=== PATIENT | male | born 1940 ===

== ENCOUNTER 2018-04-05 12:23 | Inpatient (IN) | payer MEDICARE ==
[2018-04-05 12:27] VITALS: BMI 26.2
--- NOTE | 2018-04-05 12:43 | C.PDOC ---
History Of Present Illness 78yo male, with history of dementia, brought to ER by family for evaluation of slurred speech and right sided facial droop. Family reports at baseline, the patient is AOX3 and he was last seen normal at 7 am; when the family checked in on him at 9am, they noted he had the slurred speech and facial droop. Upon arrival to ER, patient is slow to respond and reports generalized bodyaches. Per family, patient appears to have improved compared to this morning. Otherwise , they offer no other medical complaints. Time Seen by Provider: 04/05/18 12:27 Chief Complaint (Nursing): Weakness/Neurological Deficit History Per: Family History/Exam Limitations: clinical condition Onset/Duration Of Symptoms: Hrs Current Symptoms Are (Timing): Better Past Medical History Reviewed: Historical Data, Nursing Documentation, Vital Signs Vital Signs: Last Vital Signs Temp 98.8 F 04/05/18 15:52 Pulse 83 04/05/18 15:52 Resp 14 04/05/18 15:52 BP 104/55 L 04/05/18 15:52 Pulse Ox 97 04/05/18 15:52 - Medical History PMH: Anxiety, Dementia, Hypercholesterolemia Surgical History: No Surg Hx Family History: States: No Known Family Hx - Social History Hx Alcohol Use: No Hx Substance Use: No Review Of Systems Except As Marked, All Systems Reviewed And Found Negative. Constitutional: Negative for: Fever, Chills Cardiovascular: Negative for: Chest Pain Respiratory: Negative for: Shortness of Breath Gastrointestinal: Negative for: Abdominal Pain Neurological: Positive for: Other (slurred speech; right sided facial droop) Physical Exam - Physical Exam Appears: Non-toxic Skin: Warm, Dry Head: Atraumatic, Normacephalic Eye(s): bilateral: Normal Inspection Oral Mucosa: Moist Neck: Normal ROM, Supple Chest: Symmetrical Cardiovascular: Rhythm Regular Respiratory: Normal Breath Sounds Gastrointestinal/Abdominal: Normal Exam, Soft, No Tenderness Extremity: Normal ROM Other Neurological Findings: Facial Palsy (right sided) ED Course And Treatment - Laboratory Results Result Diagrams: 04/05/18 12:58 04/05/18 12:58 ECG: Interpreted By Me, Viewed By Me ECG Rhythm: Sinus Rhythm ECG Interpretation: Normal Interpretation Of ECG: No ST/T wave changes Rate From EC O2 Sat by Pulse Oximetry: 96 (RA) Pulse Ox Interpretation: Normal Progress Note: Labs, EKG, CXR ordered. NIHSS Stroke Scale 2 - Date/Time Evaluation Performed Date Performed: 04/05/18 When Was NIHSS Performed: Baseline - How Severe is the Stroke Level of Consciousness: 1=Drowsy LOC to Questions: 0=Both comments correct LOC to commands: 0=Obeys both correctly Best Gaze: 0=Normal Visual: 0=No visual loss Facial: 1=Minor asymmetry Motor Arm - Left: 0=No drift Motor Arm - Right: 0=No drift Motor Leg - Left: 0=No drift Motor Leg - Right: 0=No drift Limb Ataxia: 0=Absent Sensory: 0=Normal Best Language: 0=No aphasia Dysarthia: 1=Mild to moderate slurring Extinction & Inattention (Neglect): 0=Normal, no object Score: 3 rTPA Inclusion/Exclusion - Refusal of Treatment Patient Refused Treatment: No - Inclusion Criteria for Altepase Patient is 18 years or Older: Yes The Clinical Diagnosis of Ischemic Stroke That is Causing a Potentially Disabling Neurological Deficit: No Time of Onset is Well Established to be Less Than 270 Minute Before Treatment Would Begin: Yes Risk/Benefit Discussed With Patient/Family Member Present: Yes Medical Decision Making Medical Decision Making: stroke vs sepsis vs metabolic - stroke code. family states slurred speech facial droop. in er, symptoms nearly resolved. labs imaging pending cxr shows ?widened mediastinum, with neuro symptoms, cta added. ct shows pna. anbiotics iniated. 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 plavix given. not tpa candiddate as per dr davalos, as low nih, resolving symptoms and onset 7am accepted by dr salter. pt later reassesed all symptoms resolved. Disposition - Disposition Disposition: HOSPITALIZED Disposition Time: 03:00 Condition: FAIR - Clinical Impression Clinical Impression: Pneumonia, Slurred speech - Scribe Statement The provider has reviewed the documentation as recorded by the Sebastian Pimentel Provider Attestation: All medical record entries made by the Sebastian were at my direction and personally dictated by me. I have reviewed the chart and agree that the record accurately reflects my personal performance of the history, physical exam, medical decision making, and the department course for this patient. I have also personally directed, reviewed, and agree with the discharge instructions and disposition. Decision To Admit - Pt Status Changed To: Hospital Disposition Of: Inpatient - Admit Certification Admit to Inpatient:: After my assessment, the patient will require hospitalization for at least two midnights. This is because of the severity of symptoms shown, intensity of services needed, and/or the medical risk in this patient being treated as an outpatient. - InPatient: Physician Admission Certification: I certify that this patient requires 2 or more midnights of care for the following reason:: needs mri and iv anbiotics. - . Bed Request Type: Regular Admitting Physician: Tamela Salter Patient Diagnosis: Pneumonia, Slurred speech
--- NOTE | 2018-04-05 12:47 | CT ---
Date of service: 04/05/2018 PROCEDURE: CT HEAD WITHOUT CONTRAST. HISTORY: Code Stroke COMPARISON: None available. TECHNIQUE: Axial computed tomography images were obtained through the head/brain without intravenous contrast. Radiation dose: Total exam DLP = 850.77 mGy-cm. This CT exam was performed using one or more of the following dose reduction techniques: Automated exposure control, adjustment of the mA and/or kV according to patient size, and/or use of iterative reconstruction technique. FINDINGS: HEMORRHAGE: No intracranial hemorrhage. BRAIN: There are moderate diffuse confluent periventricular white matter ischemic changes with extension into the deep and subcortical white matter with the changes become more patchy in appearance. 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 Note that the possibility of a small hyperacute infarct cannot be excluded based on this study. Clinical correlation recommended. VENTRICLES: No obstructive hydrocephalus. CALVARIUM: Unremarkable. PARANASAL SINUSES: Unremarkable as visualized. No significant inflammatory changes. MASTOID AIR CELLS: Unremarkable as visualized. No inflammatory changes. OTHER FINDINGS: Changes of right-sided cataract surgery. IMPRESSION: No acute intracranial hemorrhage. Moderate diffuse confluent periventricular white matter ischemic changes with extension into the deep and subcortical white matter with the changes become more patchy in appearance. 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 Note that the possibility of a small hyperacute infarct cannot be excluded based on this study. Clinical correlation recommended. Moderate generalized volume loss. Findings discussed with Dr. Diego at 12 43 p.m. with written down and read back verification.
[2018-04-05 13:03] LABS: BASO % 0.3 % (0.0-2.0); EOS % 0.3 % (0.0-4.0); HEMOGLOBIN 13.1 g/dL (12.0-18.0); LYMPH # 1.5 K/uL (1.0-4.3); LYMPH % 12.1 % (20.0-40.0); MEAN CELL VOLUME 88.1 fL (80.0-94.0); MEAN CORPUSCULAR HEMOGLOBIN 29.9 pg (27.0-31.0); MEAN PLATELET VOLUME 9.4 fL (7.2-11.7); MONO # 0.6 K/uL (0.0-0.8); MONO % 4.6 % (0.0-10.0); NEUT # 10.2 K/uL (1.8-7.0); NEUT % 82.7 % (50.0-75.0); RBC 4.39 Mil/uL (4.40-5.90); RED CELL DISTRIBUTION WIDTH 14.9 % (11.5-14.5); WHITE BLOOD COUNT 12.4 K/uL (4.8-10.8)
[2018-04-05 13:13] LABS: INR 1.2; PROTHROMBIN TIME 12.6 SECONDS (9.7-12.2)
[2018-04-05 13:17] LABS: ALB/GLOB RATIO 1.3 (1.0-2.1); ALBUMIN 3.6 g/dL (3.5-5.0); ALT/SGPT 37 U/L (21-72); AST/SGOT 42 U/L (17-59); BLOOD UREA NITROGEN 17 mg/dL (9-20); CALCIUM 9.2 mg/dl (8.6-10.4); GFR AFRICAN-AMERICAN > 60; GFR NON-AFRICAN AMERICAN > 60; HDL CHOLESTEROL 40 mg/dL (30-70)
[2018-04-05 13:28] LABS: LDL CHOLESTEROL 72 mg/dL (0-129)
[2018-04-05] MEDS ORDERED: Iodixanol 320 mg/ml 150 ml Bottle IV ONE (13:37)
--- NOTE | 2018-04-05 14:30 | CP.PCM.CON ---
History of Present Illness - History of Present Illness History of Present Illness: Consult Neurology note CC: Right-sided facial droop and drooling HPI: Patient is a 78 year old male with past medical history of Arthritis, Hypothyroidism, Dementia, HTN, DM, depression/Anxiety, former alcohol abuse and prostate cancer, who was brought him by ambulance with complaint of right-sided facial droop and drooling. As per patient's daughter, patient woke up completely normal this morning at 7am and has breakfast and morning medication. Subsequently, patient went to bed with half of his body on the bed, while his legs were dangling on the floor; patient slipped to the floor when asked by his daughter to reposition himself on the body (all normal behavior as per daughter). Patient's daughter noted right sided drooling after this incident and she wiped her father's face. Around 9am, patient's daughter noted right sided drooling and facial droop. At this time, patient's daughter called PMD, who recommended for patient to be brought to the hospital. As per daughter, vitals were: BP (109/60), HR: 91 and Blood glucose (159). Patient denies any fever, chills, nausea, vomiting, chest pain, palpitations, SOB, headache, blurry vision, numbness/tingling and urinary/fecal incontinence. In addition, patient told his son-in-law, today was his son's graduation PMD: Dr. Salter PMHx: Arthritis, Hypothyroidism, Dementia, HTN, DM, depression/Anxiety, former alcohol abuse and prostate cancer PSHx: 88 radioactive seeds for prostate cancer, Right glaucoma repair FHx: Father ( Prostate Ca, ) - Mother (Throat Ca. ) - Elder sister and brother ( in their 80s and 90s due to complications of Dementia) - Elder brother ( in his 80s, possibly due to [place]) - Son, at age of 44 due to complications of liver/lung Ca Medications: Levothyroxine 75mcg PO QD, Clonazepam 1mg BID, Chlorthalidone 25mg PO QD, Paroxetine 20mg PO QD, Omeprazole 20mg PO QD, Metformin 500mg PO BID, Metoprolol tartate 25mg PO BID, Donepezil 10mg PO QD, Risperidone 1mg PO, Simvastatin 40mg PO HS, Melatonin 5mg PO BID, Cyclobenzaperine 10mg PO and Trazadone 50mg PO PRN Allergies: NKDA Social Hx: Lives with daughter, retired contractor. Admits to former alcohol abuse but denies current or former history of tobacco or illicit drug use Review of Systems - Constitutional Constitutional: Weakness. absent: Chills, Fever, Frequent Falls, Headache - EENT Eyes: absent: Blurred Vision, Change in Vision Ears: absent: Dizziness Nose/Mouth/Throat: absent: Nasal Congestion, Nasal Discharge - Cardiovascular Cardiovascular: absent: Chest Pain, Chest Pain at Rest, Diaphoresis, Dyspnea, Leg Edema, Lightheadedness, Palpitations - Respiratory Respiratory: absent: Dyspnea - Gastrointestinal Gastrointestinal: absent: Abdominal Pain, Nausea, Vomiting - Musculoskeletal Musculoskeletal: absent: Numbness, Tingling - Neurological Neurological: Weakness. absent: Dizziness, Numbness, Headaches, Tingling - Psychiatric Psychiatric: Anxiety, Behavioral Changes, Confusion, Depression - Endocrine Endocrine: Fatigue. absent: Palpitations Past Patient History - Past Social History Smoking Status: Unknown If Ever Smoked - CARDIAC Hx Hypercholesterolemia: Yes - NEUROLOGICAL Hx Dementia: Yes - PSYCHIATRIC Hx Anxiety: Yes Hx Substance Use: No Meds Allergies/Adverse Reactions: Allergies Allergy/AdvReac Type Severity Reaction Status Date / Time No Known Allergies Allergy Unverified 04/05/18 12:26 Physical Exam - Constitutional Appears: No Acute Distress - Head Exam Head Exam: ATRAUMATIC, NORMAL INSPECTION - Eye Exam Eye Exam: EOMI, PERRL Additional comments: Subtle right facial droop - ENT Exam ENT Exam: Mucous Membranes Dry Additional comments: Tongue is midline Tongue heaviness - Respiratory Exam Respiratory Exam: Rhonchi, NORMAL BREATHING PATTERN - Cardiovascular Exam Cardiovascular Exam: REGULAR RHYTHM, +S1, +S2 - GI/Abdominal Exam GI & Abdominal Exam: Normal Bowel Sounds, Soft. absent: Diminished Bowel Sounds , Distended, Firm, Guarding, Hernia, Tenderness - Extremities Exam Extremities exam: Negative for: calf tenderness, pedal edema, tenderness - Neurological Exam Neurological exam: Alert, Oriented x3 Additional comments: +5/5 b/l upper extremities strength Drifting noted bilateral leg function test +4/5 B/l lower extremities strength Sensory intact Very mild slurred speech Very mild to none ( Right-sided facial droop) - Psychiatric Exam Psychiatric exam: Normal Affect - Skin Skin Exam: Normal Color Results - Vital Signs Recent Vital Signs: Last Vital Signs Temp 98.3 F 04/05/18 12:25 Pulse 81 04/05/18 12:26 Resp 16 04/05/18 12:26 BP 117/62 04/05/18 12:26 Pulse Ox 96 04/05/18 13:27 - Labs Result Diagrams: 04/05/18 12:58 04/05/18 12:58 Labs: Laboratory Results - last 24 hr 04/05/18 04/05/18 04/05/18 12:26 12:58 12:58 WBC 12.4 H RBC 4.39 L Hgb 13.1 Hct 38.7 MCV 88.1 MCH 29.9 MCHC 34.0 RDW 14.9 H Plt Count 175 MPV 9.4 Neut % (Auto) 82.7 H Lymph % (Auto) 12.1 L Cooke % (Auto) 4.6 Eos % (Auto) 0.3 Baso % (Auto) 0.3 Neut # (Auto) 10.2 H Lymph # (Auto) 1.5 Cooke # (Auto) 0.6 Eos # (Auto) 0.0 Baso # (Auto) 0.0 PT 12.6 H INR 1.2 APTT 31 Sodium Potassium Chloride Carbon Dioxide Anion Gap BUN Creatinine Est GFR ( Amer) Est GFR (Non-Af Amer) POC Glucose (mg/dL) 241 H Random Glucose Hemoglobin A1c Calcium Total Bilirubin AST ALT Alkaline Phosphatase Total Creatine Kinase Troponin I Total Protein Albumin Globulin Albumin/Globulin Ratio Triglycerides Cholesterol LDL Cholesterol Direct HDL Cholesterol Blood Type Antibody Screen 04/05/18 04/05/18 04/05/18 12:58 12:58 12:58 WBC RBC Hgb Hct MCV MCH MCHC RDW Plt Count MPV Neut % (Auto) Lymph % (Auto) Cooke % (Auto) Eos % (Auto) Baso % (Auto) Neut # (Auto) Lymph # (Auto) Cooke # (Auto) Eos # (Auto) Baso # (Auto) PT INR APTT Sodium 133 Potassium 3.8 Chloride 96 L Carbon Dioxide 23 Anion Gap 17 BUN 17 Creatinine 0.8 Est GFR ( Amer) > 60 Est GFR (Non-Af Amer) > 60 POC Glucose (mg/dL) Random Glucose 223 H Hemoglobin A1c 7.3 H Calcium 9.2 Total Bilirubin 0.5 AST 42 ALT 37 Alkaline Phosphatase 97 Total Creatine Kinase 113 Troponin I < 0.0120 Total Protein 6.4 Albumin 3.6 Globulin 2.8 Albumin/Globulin Ratio 1.3 Triglycerides 60 Cholesterol 136 LDL Cholesterol Direct 72 HDL Cholesterol 40 Blood Type O POSITIVE Antibody Screen Negative Assessment & Plan (1) Facial droop Assessment and Plan: Imaging: Head CT w/o contrast: No acute intracranial hemorrhage. Moderate diffuse confluent periventricular white matter ischemic changes with extension into the deep and subcortical white matter with the changes become more patchy in appearance. 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 F/u MRI W/O contrast: Medications: * ASA 81mg PO QD * Plavix 75mg PO QD * Crestor 10mg PO QD Status: Acute (2) Dementia Assessment and Plan: Possibly with parkinson's dementia Continue home medications: * Donepezil 10mg PO HS All plans and management discussed with Dr. Gilliam Status: Acute
--- NOTE | 2018-04-05 14:30 | RAD ---
Date of service: 04/05/2018 HISTORY: Code Stroke COMPARISON: Patchy bilateral lower lobe infiltrates. FINDINGS: LUNGS: No active pulmonary disease. PLEURA: No significant pleural effusion identified, no pneumothorax apparent. CARDIOVASCULAR: Normal. OSSEOUS STRUCTURES: No significant abnormalities. VISUALIZED UPPER ABDOMEN: Normal. OTHER FINDINGS: None. IMPRESSION: Patchy bilateral lower lobe infiltrates.
[2018-04-05] MEDS ORDERED: Azithromycin 500 MG in Sodium Chloride 0.9% 250 ML IVPB STA (14:32)
[2018-04-05] MEDS ORDERED: cefTRIAXone IV 1 gm in Dextros 50 ML IVPB ONE (14:49)
--- NOTE | 2018-04-05 15:15 | CT ---
PROCEDURE: CT Angiography Chest, Abdomen and Pelvis with and without intravenous contrast HISTORY: wide mediastinum, ro dissection COMPARISON: None. TECHNIQUE: Contiguous axial images of the chest, abdomen and pelvis were obtained in the phase of aortic enhancement. A noncontrast enhanced CT of the chest was also obtained to evaluate for possible intramural thrombus. Coronal and sagittal reformats were generated. IV dose administered: 100 mL Visipaque Radiation dose: Total exam DLP = 1094.58 mGy-cm. This CT exam was performed using one or more of the following dose reduction techniques: Automated exposure control, adjustment of the mA and/or kV according to patient size, and/or use of iterative reconstruction technique. FINDINGS: CT ANGIOGRAPHY OF THE CHEST WITH & WITHOUT CONTRAST: AORTA (CHEST AND ABDOMEN): There is a near is mild dilatation of the ascending aorta which measures 3.9 x 3.6 cm. No evidence for dissection. The abdominal aorta is normal in caliber, without aneurysm, dissection or rupture. No intramural thrombus identified in the thoracic aorta on the non-contrast ct of the chest. The celiac axis, superior mesenteric artery, inferior mesenteric artery and the renal arteries are widely patent. The pelvic arteries are unremarkable. LUNGS: There is multifocal airspace disease in the posterior segment of the right upper lobe and both lower lobes, worse in the right lower lobe. There are no endobronchial lesions. . No nodule, mass or consolidation. MEDIASTINUM: The heart is normal in size. No pericardial effusion. No evidence for pulmonary embolism. The pulmonary trunk and main pulmonary arteries are normal in caliber. LYMPH NODES: Subcentimeter mediastinal lymph nodes, the largest right paratracheal lymph node measures 8 mm in short axis. These are likely reactive in etiology. No pathologic hilar adenopathy. . PLEURA: No pneumothorax. No pleural fluid. BONES: Unremarkable. OTHER FINDINGS: None. CT ANGIOGRAPHY OF THE ABDOMEN AND PELVIS WITH CONTRAST: LIVER: Allowing for angiographic phase, the liver is normal in size. No gross lesion or ductal dilatation. GALLBLADDER AND BILE DUCTS: The gallbladder is contracted. PANCREAS: Mild fatty atrophy of the pancreas. No gross lesion or ductal dilatation. SPLEEN: Normal in size and appearance. ADRENALS: No discrete nodule. KIDNEYS AND URETERS: Normal in size with homogeneous enhancement. No hydronephrosis. No solid mass. VASCULATURE: There are atherosclerotic aortoiliac calcifications and peripheral mural thrombus without stenosis. . No aortic aneurysm. STOMACH AND BOWEL: The small bowel loops are normal in caliber. There is scattered colonic diverticulosis without CT evidence for acute diverticulitis. APPENDIX: Normal appendix. PERITONEUM: No free fluid. No free air. LYMPH NODES: No enlarged lymph nodes. BONES: No acute fracture. Diffuse bone demineralization and mild multilevel degenerative disc disease. OTHER FINDINGS: None. IMPRESSION: 1. Aneurysmal dilatation of the ascending aorta measuring 3.9 x 3.6 cm. No evidence for aortic dissection. 2. Multifocal pneumonia involving the posterior segment of the right upper lobe and both lower lobes, worse in the right lower lobe. Follow-up after medical management is recommended to ensure complete resolution. 3. Atherosclerotic disease in the abdominal aorta without evidence for significant luminal narrowing. No significant stenosis in the larger abdominal arteries. 4. Scattered colonic diverticulosis without CT evidence for acute diverticulitis.
[2018-04-05] MEDS: Sodium Chloride 0.9% 1,000 ML IV SCH (18:30)
[2018-04-06] MEDS: Sodium Chloride 0.9% 1,000 ML IV SCH ×3 (04:15→19:50)
[2018-04-06] MEDS ORDERED: Dextrose 50% SYRINGE Inj (50 ml) IV PRN (07:50)
[2018-04-06] MEDS ORDERED: Glucagon Recombinant 1 mg Inj IM PRN (07:50)
--- NOTE | 2018-04-06 07:54 | CP.PCM.PN ---
Subjective - Date & Time of Evaluation Date of Evaluation: 04/06/18 Time of Evaluation: 07:41 - Subjective Subjective: PGY2 note for Dr Salter's Service Pt seen and examined at bedside. Nursing reports no acute events overnight. Patient found lying in bed comfortably. Interpretation services used for this encounter. Patient denies acute complaints this AM but with underlying dementia unable to obtain accurate ROS. Objective - Vital Signs/Intake and Output Vital Signs (last 24 hours): Temp Pulse Resp BP Pulse Ox 97.7 F 109 H 18 113/58 L 99 04/05/18 23:00 04/06/18 06:23 04/05/18 23:00 04/05/18 23:00 04/05/18 23:00 - Medications Medications: Current Medications Aspirin (Ecotrin) 81 mg PO DAILY [facility] Clopidogrel Bisulfate (Plavix) 75 mg PO DAILY [facility] Donepezil HCl (Aricept) 10 mg PO HS [facility] Last Admin: 04/05/18 22:13 Dose: 10 mg Enoxaparin Sodium (Lovenox) 40 mg SC DAILY [facility] Sodium Chloride (Sodium Chloride 0.9%) 1,000 mls @ 100 mls/hr IV .Q10H [facility] Last Admin: 04/05/18 18:30 Dose: 100 mls/hr Ceftriaxone Sodium 1 gm/ (Sodium Chloride) 100 mls @ 100 mls/hr IVPB DAILY DEX PRN Reason: Protocol Azithromycin 500 mg/ Sodium (Chloride) 250 mls @ 250 mls/hr IVPB DAILY DEX PRN Reason: Protocol Rosuvastatin Calcium (Crestor) 10 mg PO [facility] Last Admin: 04/05/18 22:13 Dose: 10 mg - Labs Labs: 04/05/18 12:58 04/05/18 12:58 PT 12.6 SECONDS (9.7-12.2) H 04/05/18 12:58 INR 1.2 04/05/18 12:58 APTT 31 SECONDS (21-34) 04/05/18 12:58 - Constitutional Appears: Non-toxic, No Acute Distress - Head Exam Head Exam: ATRAUMATIC, NORMAL INSPECTION, NORMOCEPHALIC - Eye Exam Eye Exam: EOMI Pupil Exam: PERRL - ENT Exam ENT Exam: Mucous Membranes Dry - Neck Exam Neck Exam: Full ROM - Respiratory Exam Respiratory Exam: Decreased Breath Sounds, Rhonchi. absent: Clear to Ausculation Bilateral Additional comments: Slight rhonchi worse at left base - Cardiovascular Exam Cardiovascular Exam: REGULAR RHYTHM, +S1, +S2 - GI/Abdominal Exam GI & Abdominal Exam: Soft, Normal Bowel Sounds. absent: Tenderness - Extremities Exam Extremities Exam: Normal Inspection. absent: Pedal Edema, Tenderness - Back Exam Back Exam: absent: CVA tenderness (L), CVA tenderness (R) - Neurological Exam Neurological Exam: Alert, Awake. absent: Oriented x3 Neuro motor strength exam: Left Upper Extremity: 5, Right Upper Extremity: 5, Left Lower Extremity: 4, Right Lower Extremity: 4 Additional comments: Slurred speech mild Patient able to follow commands by sticking out tongue, raising/lowering b/l extremities No facial droop Light touch intact throughout - Psychiatric Exam Psychiatric exam: Normal Affect - Skin Skin Exam: Normal Color, Warm Assessment and Plan - Assessment and Plan (Free Text) Plan: TIA Admit to tele CODE STROKE initiated, Stroke team consulted CT Head w/o contrast (04/05/18): No acute intracranial hemorrhage. Moderate diffuse confluent periventricular white matter ischemic changes with extension into the deep and subcortical white matter with the changes become more patchy in appearance. 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 Dr. Gilliam, Neuro e business consultant, help appreciated - not tPA candidate ASA 325mg PO taken by patient after symptoms began -ASA 81mg PO Daily Plavix 75mg PO Given in ED -Plavix 75mg PO Daily Crestor 10mg PO HS f/u MRI of brain Pneumonia, Community Acquired Afebrile, WBC elevated on admission CT Angio (04/06/18): Multifocal pneumonia involving posterior segment of RUL and both lower lobes CXR (04/05/18): Patchy b/l lobe infiltrates Azithromycin 500mg IV Daily (start 04/06/18) Ceftriaxone 1gm IV Daily (start 04/06/18) f/u atypicals R/o Dissection ? Widened mediastinum on CXR as interpreted by ED physician CT Angio (04/06/18): Aneurysmal dilatation of ascending aorta measuring 3.9 x 3.6 cm. No evidence of dissection. Multifocal pneumonia involving posterior segment of RUL and both lower lobes Aortic Aneurysm CT Angio (04/06/18): Aneurysmal dilatation of ascending aorta measuring 3.9 x 3.6 cm. No evidence of dissection. will require f/u with repeat CT in 6 months time for evaluation of expansion/ extension of aneurysm Hypothyroidism Levothyroxine 75mcg PO QD f/u TSH/Free T4 Dementia/? Parkinsons Donepezil 10mg PO QD HTN Elevated this AM, will restart home medications Chlorthalidone 25mg PO QD Metoprolol tartate 25mg PO BID DM A1c 7.3, well controlled Hypoglycemia protocol Accuchecks ACHS Restart Metformin 500mg PO BID ISS Depression/Anxiety Paroxetine 20mg PO QD HOLD home medications at this time: Clonazepam, Risperidone Insomnia Trazadone 50mg PO HS Prostate cancer s/p radioactive seeding Electrolyte abnormality Will follow daily, and replete as needed PPX Lovenox 40mg SC daily GI not indicated SCDs Cash Butler PGY-2 All management per Joie
--- NOTE | 2018-04-06 09:13 | CP.PCM.PN ---
Subjective - Date & Time of Evaluation Date of Evaluation: 04/06/18 Time of Evaluation: 07:30 - Subjective Subjective: Neurology progress note ( Dr. Gilliam's service) Patient was seen and examined at bedside. As per nursing, there were no acute issues overnight. Patient states that he was doing well when he was asked. Patient does have baseline dementia, therefore, unable to obtain adequate ROS. Objective - Vital Signs/Intake and Output Vital Signs (last 24 hours): Temp Pulse Resp BP Pulse Ox 97.4 F L 105 H 18 162/90 H 96 04/06/18 08:00 04/06/18 08:00 04/06/18 08:00 04/06/18 08:00 04/06/18 08:00 - Medications Medications: Current Medications Aspirin (Ecotrin) 81 mg PO DAILY [facility] Clopidogrel Bisulfate (Plavix) 75 mg PO DAILY [facility] Dextrose (Dextrose 50% Inj) 0 ml IV STAT PRN; Protocol PRN Reason: Hypoglycemia Protocol Dextrose (Glutose 15) 0 gm PO ONCE PRN; Protocol PRN Reason: Hypoglycemia Protocol Donepezil HCl (Aricept) 10 mg PO [facility] Last Admin: 04/05/18 22:13 Dose: 10 mg Enoxaparin Sodium (Lovenox) 40 mg SC DAILY [facility] Glucagon (Glucagen Diagnostic Kit) 0 mg IM STAT PRN; Protocol PRN Reason: Hypoglycemia Protocol Sodium Chloride (Sodium Chloride 0.9%) 1,000 mls @ 100 mls/hr IV .Q10H [facility] Last Admin: 04/05/18 18:30 Dose: 100 mls/hr Ceftriaxone Sodium 1 gm/ (Sodium Chloride) 100 mls @ 100 mls/hr IVPB DAILY [facility] PRN Reason: Protocol Azithromycin 500 mg/ Sodium (Chloride) 250 mls @ 250 mls/hr IVPB DAILY [facility] PRN Reason: Protocol Dextrose (Dextrose 5% In Water 1000 Ml) 1,000 mls @ 0 mls/hr IV .Q0M PRN; Protocol; Per Protocol PRN Reason: Hypoglycemia Protocol Rosuvastatin Calcium (Crestor) 10 mg PO [facility] Last Admin: 04/05/18 22:13 Dose: 10 mg - Labs Labs: 04/05/18 12:58 04/05/18 12:58 PT 12.6 SECONDS (9.7-12.2) H 04/05/18 12:58 INR 1.2 04/05/18 12:58 APTT 31 SECONDS (21-34) 04/05/18 12:58 - Constitutional Appears: No Acute Distress - Head Exam Head Exam: ATRAUMATIC - Eye Exam Eye Exam: EOMI - ENT Exam ENT Exam: Mucous Membranes Dry - Respiratory Exam Respiratory Exam: Decreased Breath Sounds, NORMAL BREATHING PATTERN. absent: Prolonged Expiratory Phase, Respiratory Distress, Stridor Additional comments: B/L lower lung base - Cardiovascular Exam Cardiovascular Exam: REGULAR RHYTHM, +S1, +S2. absent: Murmur - GI/Abdominal Exam GI & Abdominal Exam: Soft, Normal Bowel Sounds. absent: Distended, Firm, Guarding, Rigid, Tenderness - Extremities Exam Extremities Exam: Normal Inspection - Neurological Exam Neuro motor strength exam: Left Upper Extremity: 5, Right Upper Extremity: 5, Left Lower Extremity: 4, Right Lower Extremity: 4 Additional comments: +5/5 b/l upper extremities strength Drifting noted bilateral leg function test +4/5 B/l lower extremities strength Sensory intact Very mild slurred speech; which is baseline No noted facial droop - Psychiatric Exam Psychiatric exam: Flat Affect - Skin Skin Exam: Normal Color Assessment and Plan (1) Facial droop Assessment & Plan: Resolved Imaging: Head CT w/o contrast: No acute intracranial hemorrhage. Moderate diffuse confluent periventricular white matter ischemic changes with extension into the deep and subcortical white matter with the changes become more patchy in appearance. 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 MRI W/O contrast: No acute intracranial abnormality. Moderate chronic microangiopathic changes and moderate age-related global parenchymal volume loss. Medications: * ASA 81mg PO QD * Plavix 75mg PO QD * Crestor 10mg PO QD * PT/ OT Status: Acute (2) Dementia Assessment & Plan: Possibly with parkinson's dementia Continue home medications: * Donepezil 10mg PO HS Patient is stable from neurology stand point, continue all current regiment and physical and occupation therapy All plans and management discussed with Dr. Gilliam Status: Acute
[2018-04-06] MEDS: Azithromycin 500 MG in Sodium Chloride 0.9% 250 ML IVPB SCH (10:15)
[2018-04-06] MEDS: Enoxaparin 40 mg Syringe SC SCH (10:37)
[2018-04-06 11:13] LABS: BASO % 0.2 % (0.0-2.0); EOS # 0.2 K/uL (0.0-0.7); EOS % 1.4 % (0.0-4.0); LYMPH # 2.3 K/uL (1.0-4.3); LYMPH % 15.1 % (20.0-40.0); MEAN CELL VOLUME 88.7 fL (80.0-94.0); MEAN CORPUSCULAR HEMOGLOBIN 29.9 pg (27.0-31.0); MEAN CORPUSCULAR HGB CONC 33.7 g/dL (33.0-37.0); MEAN PLATELET VOLUME 9.6 fL (7.2-11.7); MONO # 0.7 K/uL (0.0-0.8); MONO % 4.6 % (0.0-10.0); NEUT # 11.7 K/uL (1.8-7.0); NEUT % 78.7 % (50.0-75.0); RBC 4.01 Mil/uL (4.40-5.90); RED CELL DISTRIBUTION WIDTH 15.6 % (11.5-14.5); WHITE BLOOD COUNT 14.9 K/uL (4.8-10.8)
[2018-04-06 11:40] LABS: ALB/GLOB RATIO 1.3 (1.0-2.1); ALBUMIN 3.5 g/dL (3.5-5.0); ALT/SGPT 39 U/L (21-72); AST/SGOT 22 U/L (17-59); BLOOD UREA NITROGEN 10 mg/dL (9-20); GFR AFRICAN-AMERICAN > 60; GFR NON-AFRICAN AMERICAN > 60
[2018-04-06] MEDS ORDERED: Potassium Chloride 20 mEq/15 ml LIQ UD PO ONE (12:15)
[2018-04-06] MEDS: Magnesium Sulfate 1 gm in D5W 1 GM/100 ML BAG IVPB SCH ×2 (12:22→13:35)
--- NOTE | 2018-04-06 12:59 | MRI ---
Date of service: 04/06/2018 PROCEDURE: MRI BRAIN WITHOUT CONTRAST HISTORY: r/o cva COMPARISON: Noncontrast head CT from 04/05/2018 TECHNIQUE: Multiplanar, multisequence MR images of the brain were obtained without intravenous contrast enhancement. FINDINGS: HEMORRHAGE: None DWI: No evidence of an acute or early subacute infarction. BRAIN PARENCHYMA: There are moderate chronic microangiopathic changes. There is no mass, mass effect or abnormal extra-axial fluid collection. There is no territorial infarction. The midline sagittal structures are normal. VENTRICLES: There is moderate age-related global parenchymal volume loss and proportionate enlargement of the ventricles and cortical sulci. CRANIUM: There is normal bone marrow signal pattern. ORBITS: Grossly unremarkable. PARANASAL SINUSES/MASTOIDS: Mild mucosal thickening in the paranasal sinuses. Trace right mastoid effusion. VASCULAR SYSTEM: There are normal signal voids in the larger intracranial arteries. OTHER FINDINGS: None. IMPRESSION: No acute intracranial abnormality. Moderate chronic microangiopathic changes and moderate age-related global parenchymal volume loss.
--- NOTE | 2018-04-06 17:54 | CARD ---
APPROVED REPORT Date of service: 04/05/2018 EKG Measurement Heart [id number] <Conclusion> Normal sinus rhythm Voltage criteria for left ventricular hypertrophy Abnormal ECG
[2018-04-06 18:08] LABS: MYCOPLASMA PNEUMONIAE IGM NEGATIVE (NEGATIVE)
[2018-04-07] MEDS: Sodium Chloride 0.9% 1,000 ML IV SCH ×3 (01:15→22:30)
[2018-04-07] MEDS: Levothyroxine 75 MCG TAB PO SCH (05:55)
[2018-04-07 06:58] LABS: BASO % 0.2 % (0.0-2.0); EOS # 0.3 K/uL (0.0-0.7); EOS % 2.2 % (0.0-4.0); HEMOGLOBIN 11.7 g/dL (12.0-18.0); LYMPH # 2.8 K/uL (1.0-4.3); LYMPH % 18.6 % (20.0-40.0); MEAN CELL VOLUME 87.7 fL (80.0-94.0); MEAN CORPUSCULAR HEMOGLOBIN 29.4 pg (27.0-31.0); MEAN CORPUSCULAR HGB CONC 33.6 g/dL (33.0-37.0); MEAN PLATELET VOLUME 9.8 fL (7.2-11.7); MONO # 0.8 K/uL (0.0-0.8); MONO % 5.6 % (0.0-10.0); NEUT % 73.4 % (50.0-75.0); RBC 3.97 Mil/uL (4.40-5.90); RED CELL DISTRIBUTION WIDTH 15.4 % (11.5-14.5)
[2018-04-07 07:41] LABS: ALB/GLOB RATIO 1.2 (1.0-2.1); ALBUMIN 3.6 g/dL (3.5-5.0); ALT/SGPT 37 U/L (21-72); AST/SGOT 19 U/L (17-59); BLOOD UREA NITROGEN 5 mg/dL (9-20); CALCIUM 8.8 mg/dl (8.6-10.4); GFR AFRICAN-AMERICAN > 60; GFR NON-AFRICAN AMERICAN > 60
[2018-04-07] MEDS: Enoxaparin 40 mg Syringe SC SCH (09:36)
[2018-04-07] MEDS: Azithromycin 500 MG in Sodium Chloride 0.9% 250 ML IVPB SCH (10:50)
[2018-04-07] MEDS ORDERED: Pneumococcal 23-Valent Vaccine IM ONE (12:00)
[2018-04-08] MEDS: Levothyroxine 75 MCG TAB PO SCH (05:32)
[2018-04-08] MEDS: Sodium Chloride 0.9% 1,000 ML IV SCH (05:33)
[2018-04-08 08:58] LABS: BASO # 0.1 K/uL (0.0-0.2); BASO % 0.4 % (0.0-2.0); EOS # 0.4 K/uL (0.0-0.7); EOS % 2.7 % (0.0-4.0); HEMOGLOBIN 11.9 g/dL (12.0-18.0); LYMPH # 3.7 K/uL (1.0-4.3); LYMPH % 23.6 % (20.0-40.0); MEAN CORPUSCULAR HEMOGLOBIN 29.9 pg (27.0-31.0); MEAN CORPUSCULAR HGB CONC 34.4 g/dL (33.0-37.0); MEAN PLATELET VOLUME 9.7 fL (7.2-11.7); MONO % 6.4 % (0.0-10.0); NEUT # 10.6 K/uL (1.8-7.0); NEUT % 66.9 % (50.0-75.0); RBC 3.98 Mil/uL (4.40-5.90); RED CELL DISTRIBUTION WIDTH 15.1 % (11.5-14.5); WHITE BLOOD COUNT 15.8 K/uL (4.8-10.8)
[2018-04-08 09:32] LABS: BLOOD UREA NITROGEN 4 mg/dL (9-20)
[2018-04-08 09:33] LABS: ALB/GLOB RATIO 1.3 (1.0-2.1); ALBUMIN 3.8 g/dL (3.5-5.0); ALT/SGPT 37 U/L (21-72); AST/SGOT 35 U/L (17-59); CALCIUM 8.8 mg/dl (8.6-10.4); GFR AFRICAN-AMERICAN > 60; GFR NON-AFRICAN AMERICAN > 60
[2018-04-08] MEDS: Enoxaparin 40 mg Syringe SC SCH (10:13)
[2018-04-08] MEDS ORDERED: Magnesium Sulfate 1 gm in D5W 1 GM/100 ML BAG IVPB ONE (10:30)
--- NOTE | 2018-04-08 10:51 | CP.PCM.PN ---
Subjective - Date & Time of Evaluation Date of Evaluation: 04/08/18 Time of Evaluation: 10:49 - Subjective Subjective: Mr. Casanova was seen and examined at the bedside. He is awake, mumbles incomprehensible words, follows all commands. H incorporates non- verbal cues for communication. He denies any headache, dizziness. MRI of the brain showed No acute intracranial abnormality.Moderate chronic microangiopathic changes and moderate age-related global parenchymal volume loss.There was no untoward events overnight. Objective - Vital Signs/Intake and Output Vital Signs (last 24 hours): Temp Pulse Resp BP Pulse Ox 97.6 F 97 H 20 145/79 97 04/08/18 07:59 04/08/18 07:59 04/08/18 07:59 04/08/18 10:13 04/08/18 07:59 - Medications Medications: Current Medications Aspirin (Ecotrin) 81 mg PO DAILY [facility] Last Admin: 04/08/18 10:13 Dose: 81 mg Chlorthalidone (Hygroton) 25 mg PO Q24H [facility] Last Admin: 04/07/18 13:35 Dose: 25 mg Clopidogrel Bisulfate (Plavix) 75 mg PO DAILY [facility] Last Admin: 04/08/18 10:13 Dose: 75 mg Dextrose (Dextrose 50% Inj) 0 ml IV STAT PRN; Protocol PRN Reason: Hypoglycemia Protocol Dextrose (Glutose 15) 0 gm PO ONCE PRN; Protocol PRN Reason: Hypoglycemia Protocol Donepezil HCl (Aricept) 10 mg PO HS [facility] Last Admin: 04/07/18 21:13 Dose: 10 mg Enoxaparin Sodium (Lovenox) 40 mg SC DAILY [facility] Last Admin: 04/08/18 10:13 Dose: 40 mg Glucagon (Glucagen Diagnostic Kit) 0 mg IM STAT PRN; Protocol PRN Reason: Hypoglycemia Protocol Sodium Chloride (Sodium Chloride 0.9%) 1,000 mls @ 100 mls/hr IV .Q10H [facility] Last Admin: 04/08/18 05:33 Dose: 100 mls/hr Ceftriaxone Sodium 1 gm/ (Sodium Chloride) 100 mls @ 100 mls/hr IVPB DAILY [facility] PRN Reason: Protocol Last Admin: 04/08/18 10:13 Dose: 100 mls/hr Azithromycin 500 mg/ Sodium (Chloride) 250 mls @ 250 mls/hr IVPB DAILY [facility] PRN Reason: Protocol Last Admin: 04/07/18 10:50 Dose: 250 mls/hr Dextrose (Dextrose 5% In Water 1000 Ml) 1,000 mls @ 0 mls/hr IV .Q0M PRN; Protocol; Per Protocol PRN Reason: Hypoglycemia Protocol Magnesium Sulfate/Dextrose (Magnesium Sulfate 1 Gm/100 Ml D5w) 1 gm in 100 mls @ 200 mls/hr IVPB ONCE ONE Stop: 04/08/18 10:59 Levothyroxine Sodium (Synthroid) 75 mcg PO DAILY@0630 [facility] Last Admin: 04/08/18 05:32 Dose: 75 mcg Metformin HCl (Glucophage) 500 mg PO BID [facility] Last Admin: 04/08/18 10:12 Dose: 500 mg Metoprolol Tartrate (Lopressor) 25 mg PO BID [facility] Last Admin: 04/08/18 10:13 Dose: 25 mg Paroxetine HCl (Paxil) 20 mg PO DAILY [facility] Last Admin: 04/08/18 10:13 Dose: 20 mg Rosuvastatin Calcium (Crestor) 10 mg PO HS [facility] Last Admin: 04/07/18 21:12 Dose: 10 mg Trazodone HCl (Desyrel) 50 mg PO HS PRN PRN Reason: Insomnia - Labs Labs: 04/08/18 08:42 04/08/18 08:42 PT 12.6 SECONDS (9.7-12.2) H 04/05/18 12:58 INR 1.2 04/05/18 12:58 APTT 31 SECONDS (21-34) 04/05/18 12:58 - Constitutional Appears: No Acute Distress - Head Exam Head Exam: NORMAL INSPECTION - Eye Exam Pupil Exam: Miosis - Neurological Exam Neurological Exam: Awake Neuro motor strength exam: Left Upper Extremity: 4, Right Upper Extremity: 4, Left Lower Extremity: 3, Right Lower Extremity: 3 Additional comments: alert, awake, follows commands, mumbles incomprehensible words. Assessment and Plan (1) Slurred speech Assessment & Plan: Case discussed with Dr. Gilliam, continue all current medical regimen. Recommend to treat any electrolyte and WBC abnormalities, hydration, keep head of bed elevated at least 40 degrees angle. Status: Acute
[2018-04-08] MEDS: Azithromycin 500 MG in Sodium Chloride 0.9% 250 ML IVPB SCH (12:31)
[2018-04-09] MEDS: Levothyroxine 75 MCG TAB PO SCH (06:07)
[2018-04-09 07:01] LABS: BASO % 0.3 % (0.0-2.0); EOS # 0.3 K/uL (0.0-0.7); EOS % 2.3 % (0.0-4.0); HEMOGLOBIN 12.9 g/dL (12.0-18.0); LYMPH # 4.1 K/uL (1.0-4.3); LYMPH % 27.7 % (20.0-40.0); MEAN CELL VOLUME 85.8 fL (80.0-94.0); MEAN CORPUSCULAR HEMOGLOBIN 29.5 pg (27.0-31.0); MEAN CORPUSCULAR HGB CONC 34.4 g/dL (33.0-37.0); MEAN PLATELET VOLUME 9.2 fL (7.2-11.7); MONO # 1.3 K/uL (0.0-0.8); NEUT # 8.9 K/uL (1.8-7.0); NEUT % 60.7 % (50.0-75.0); RBC 4.35 Mil/uL (4.40-5.90); RED CELL DISTRIBUTION WIDTH 15.2 % (11.5-14.5); WHITE BLOOD COUNT 14.7 K/uL (4.8-10.8)
--- NOTE | 2018-04-09 07:19 | CP.PCM.PN ---
Subjective - Date & Time of Evaluation Date of Evaluation: 04/09/18 Time of Evaluation: 07:14 - Subjective Subjective: PGY-[address] Salter Patient was seen and examined at bedside. Per nursing no acute events occurred overnight. Patient denies any chest pain, shortness of breath, fevers, chills, nausea, vomiting, changes in vision, dizziness, or any other complaints. 78 year old male with past medical history of Arthritis, Hypothyroidism , Dementia, HTN, DM, depression/Anxiety, former alcohol abuse and prostate cancer, who was brought him by ambulance with complaint of right-sided facial droop and drooling. As per patient's daughter, patient woke up completely normal this morning at 7am and has breakfast and morning medication. Subsequently, patient went to bed with half of his body on the bed, while his legs were dangling on the floor; patient slipped to the floor when asked by his daughter to reposition himself on the body (all normal behavior as per daughter) . PMD: Dr. Salter PMHx: Arthritis, Hypothyroidism, Dementia, HTN, DM, depression/Anxiety, former alcohol abuse and prostate cancer PSHx: 88 radioactive seeds for prostate cancer, Right glaucoma repair FHx: Father ( Prostate Ca, ) - Mother (Throat Ca. ) - Elder sister and brother ( in their 80s and 90s due to complications of Dementia) - Elder brother ( in his 80s, possibly due to NH) - Son, at age of 44 due to complications of liver/lung Ca Medications: Levothyroxine 75mcg PO QD, Clonazepam 1mg BID, Chlorthalidone 25mg PO QD, Paroxetine 20mg PO QD, Omeprazole 20mg PO QD, Metformin 500mg PO BID, Metoprolol tartate 25mg PO BID, Donepezil 10mg PO QD, Risperidone 1mg PO, Simvastatin 40mg PO HS, Melatonin 5mg PO BID, Cyclobenzaperine 10mg PO and Trazadone 50mg PO PRN Allergies: NKDA Social Hx: Lives with daughter, retired contractor. Admits to former alcohol abuse but denies current or former history of tobacco or illicit drug use Objective - Vital Signs/Intake and Output Vital Signs (last 24 hours): Temp Pulse Resp BP Pulse Ox 98.7 F 85 20 168/77 H 97 04/09/18 04:15 04/09/18 04:15 04/09/18 04:15 04/09/18 04:15 04/09/18 04:15 Intake and Output: 04/09/18 04/09/18 06:59 18:59 Output Total 325 Balance -325 - Medications Medications: Current Medications Aspirin (Ecotrin) 81 mg PO DAILY [facility] Last Admin: 04/08/18 10:13 Dose: 81 mg Chlorthalidone (Hygroton) 25 mg PO Q24H [facility] Last Admin: 04/08/18 13:49 Dose: 25 mg Clopidogrel Bisulfate (Plavix) 75 mg PO DAILY [facility] Last Admin: 04/08/18 10:13 Dose: 75 mg Dextrose (Dextrose 50% Inj) 0 ml IV STAT PRN; Protocol PRN Reason: Hypoglycemia Protocol Dextrose (Glutose 15) 0 gm PO ONCE PRN; Protocol PRN Reason: Hypoglycemia Protocol Donepezil HCl (Aricept) 10 mg PO HS [facility] Last Admin: 04/08/18 21:55 Dose: 10 mg Enoxaparin Sodium (Lovenox) 40 mg SC DAILY [facility] Last Admin: 04/08/18 10:13 Dose: 40 mg Glucagon (Glucagen Diagnostic Kit) 0 mg IM STAT PRN; Protocol PRN Reason: Hypoglycemia Protocol Ceftriaxone Sodium 1 gm/ (Sodium Chloride) 100 mls @ 100 mls/hr IVPB DAILY [facility] PRN Reason: Protocol Last Admin: 04/08/18 10:13 Dose: 100 mls/hr Azithromycin 500 mg/ Sodium (Chloride) 250 mls @ 250 mls/hr IVPB DAILY [facility] PRN Reason: Protocol Last Admin: 04/08/18 12:31 Dose: 250 mls/hr Dextrose (Dextrose 5% In Water 1000 Ml) 1,000 mls @ 0 mls/hr IV .Q0M PRN; Protocol; Per Protocol PRN Reason: Hypoglycemia Protocol Levothyroxine Sodium (Synthroid) 75 mcg PO DAILY@0630 [facility] Last Admin: 04/09/18 06:07 Dose: 75 mcg Metformin HCl (Glucophage) 500 mg PO BID [facility] Last Admin: 04/08/18 17:13 Dose: 500 mg Metoprolol Tartrate (Lopressor) 25 mg PO BID [facility] Last Admin: 04/08/18 17:14 Dose: 25 mg Paroxetine HCl (Paxil) 20 mg PO DAILY [facility] Last Admin: 04/08/18 10:13 Dose: 20 mg Rosuvastatin Calcium (Crestor) 10 mg PO HS [facility] Last Admin: 04/08/18 21:55 Dose: 10 mg Trazodone HCl (Desyrel) 50 mg PO HS PRN PRN Reason: Insomnia - Labs Labs: 04/09/18 06:39 04/08/18 08:42 PT 12.6 SECONDS (9.7-12.2) H 04/05/18 12:58 INR 1.2 04/05/18 12:58 APTT 31 SECONDS (21-34) 04/05/18 12:58 - Head Exam Head Exam: ATRAUMATIC, NORMAL INSPECTION, NORMOCEPHALIC - Eye Exam Eye Exam: EOMI, Normal appearance, PERRL Pupil Exam: NORMAL ACCOMODATION, PERRL - ENT Exam ENT Exam: Mucous Membranes Moist, Normal Oropharynx - Respiratory Exam Respiratory Exam: Clear to Ausculation Bilateral, NORMAL BREATHING PATTERN - Cardiovascular Exam Cardiovascular Exam: REGULAR RHYTHM, +S1, +S2 - Extremities Exam Extremities Exam: Full ROM - Back Exam Back Exam: NORMAL INSPECTION. absent: CVA tenderness (R), paraspinal tenderness - Neurological Exam Neurological Exam: Alert, Awake, CN II-XII Intact, Oriented x3 - Psychiatric Exam Psychiatric exam: Normal Affect, Normal Mood - Skin Skin Exam: Dry, Intact Assessment and Plan - Assessment and Plan (Free Text) Assessment: 78 year old male with past medical history of Arthritis, Hypothyroidism , Dementia, HTN, DM, depression/Anxiety, former alcohol abuse and prostate cancer, who was brought him by ambulance with complaint of right-sided facial droop and drooling. Plan: TIA Admit to tele CODE STROKE initiated, Stroke team consulted CT Head w/o contrast (04/05/18): No acute intracranial hemorrhage. Moderate diffuse confluent periventricular white matter ischemic changes with extension into the deep and subcortical white matter with the changes become more patchy in appearance. 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 MRI (04/06/18): No acute intracranial abnormality. Moderate chronic microangiopathic changes. Moderate age-related global parenchymal volume loss. Dr. Gilliam, Neuro e business consultant, help appreciated - not tPA candidate ASA 325mg PO taken by patient after symptoms began -ASA 81mg PO Daily Plavix 75mg PO Given in ED -Plavix 75mg PO Daily Crestor 10mg PO HS Pneumonia, Community Acquired Afebrile, WBC elevated on admission CT Angio (04/06/18): Multifocal pneumonia involving posterior segment of RUL and both lower lobes CXR (04/05/18): Patchy b/l lobe infiltrates Azithromycin 500mg IV Daily (start 04/06/18) Ceftriaxone 1gm IV Daily (start 04/06/18) H.influenzae: negative Mycoplasma pneumoniae IgM: negative N.meningitidis: Negative Group B strep antigen: negative S. pneumoniae: Negative R/o Dissection ? Widened mediastinum on CXR as interpreted by ED physician CT Angio (04/06/18): Aneurysmal dilatation of ascending aorta measuring 3.9 x 3.6 cm. No evidence of dissection. Multifocal pneumonia involving posterior segment of RUL and both lower lobes Aortic Aneurysm CT Angio (04/06/18): Aneurysmal dilatation of ascending aorta measuring 3.9 x 3.6 cm. No evidence of dissection. will require f/u with repeat CT in 6 months time for evaluation of expansion/ extension of aneurysm Hypothyroidism Levothyroxine 75mcg PO QD TSH: 5.60 Free T4: 1.53 Dementia/? Parkinsons Donepezil 10mg PO QD HTN Elevated this AM, will restart home medications Chlorthalidone 25mg PO QD Metoprolol tartate 25mg PO BID DM A1c 7.3, well controlled Hypoglycemia protocol Accuchecks ACHS Restart Metformin 500mg PO BID ISS Depression/Anxiety Paroxetine 20mg PO QD HOLD home medications at this time: Clonazepam, Risperidone Insomnia Trazadone 50mg PO HS Prostate cancer s/p radioactive seeding Electrolyte abnormality Will follow daily, and replete as needed PPX Lovenox 40mg SC daily GI not indicated [facility] Richy Rainey PGY-2 All management per Joie
[2018-04-09 08:01] LABS: ALB/GLOB RATIO 1.2 (1.0-2.1); ALBUMIN 4.1 g/dL (3.5-5.0); ALT/SGPT 65 U/L (21-72); AST/SGOT 47 U/L (17-59); BLOOD UREA NITROGEN 8 mg/dL (9-20); CALCIUM 9.1 mg/dl (8.6-10.4); GFR AFRICAN-AMERICAN > 60; GFR NON-AFRICAN AMERICAN > 60
[2018-04-09] MEDS: Azithromycin 500 MG in Sodium Chloride 0.9% 250 ML IVPB SCH (09:41)
[2018-04-09] MEDS: Enoxaparin 40 mg Syringe SC SCH (09:43)
--- NOTE | 2018-04-09 11:39 | PN ---
DATE: 04/07/2018 The patient is on IV antibiotics. Doing well. Needs supportive care. Tamela Salter MD
--- NOTE | 2018-04-09 11:39 | PN ---
DATE: 04/08/2018 Mr. Casanova is a IV antibiotics. Continue treatment. Tamela Salter MD [facility] # [id number]
[2018-04-09 12:05] LABS: N MENINGITIS ACY/W135 NEGATIVE (NEGATIVE); N MENINGITIS B/ECOLI K1 NEGATIVE (NEGATIVE); STREP PNEUMONIAE NEGATIVE (NEGATIVE); STREPTOCOCCUS B NEGATIVE (NEGATIVE)
--- NOTE | 2018-04-09 15:13 | CP.PCM.PN ---
Subjective - Date & Time of Evaluation Date of Evaluation: 04/09/18 Time of Evaluation: 07:30 - Subjective Subjective: Neurology progress note ( Dr. Merlos service) Patient was seen and examined at bedside. As per nursing, there were no acute issues overnight. Patient states that he was doing well when he was asked. Patient denies any acute issues or new complaint Objective - Vital Signs/Intake and Output Vital Signs (last 24 hours): Temp Pulse Resp BP Pulse Ox 97.0 F L 73 18 146/79 98 04/09/18 07:30 04/09/18 13:00 04/09/18 07:30 04/09/18 09:38 04/09/18 07:30 Intake and Output: 04/09/18 04/09/18 06:59 18:59 Output Total 325 Balance -325 - Medications Medications: Current Medications Aspirin (Ecotrin) 81 mg PO DAILY [facility] Last Admin: 04/09/18 09:38 Dose: 81 mg Chlorthalidone (Hygroton) 25 mg PO Q24H [facility] Last Admin: 04/09/18 13:44 Dose: 25 mg Clopidogrel Bisulfate (Plavix) 75 mg PO DAILY [facility] Last Admin: 04/09/18 09:38 Dose: 75 mg Dextrose (Dextrose 50% Inj) 0 ml IV STAT PRN; Protocol PRN Reason: Hypoglycemia Protocol Dextrose (Glutose 15) 0 gm PO ONCE PRN; Protocol PRN Reason: Hypoglycemia Protocol Donepezil HCl (Aricept) 10 mg PO HS [facility] Last Admin: 04/08/18 21:55 Dose: 10 mg Enoxaparin Sodium (Lovenox) 40 mg SC DAILY [facility] Last Admin: 04/09/18 09:43 Dose: 40 mg Glucagon (Glucagen Diagnostic Kit) 0 mg IM STAT PRN; Protocol PRN Reason: Hypoglycemia Protocol Levothyroxine Sodium (Synthroid) 75 mcg PO DAILY@0630 [facility] Last Admin: 04/09/18 06:07 Dose: 75 mcg Metformin HCl (Glucophage) 500 mg PO BID [facility] Last Admin: 04/09/18 09:38 Dose: 500 mg Metoprolol Tartrate (Lopressor) 25 mg PO BID [facility] Last Admin: 04/09/18 09:38 Dose: 25 mg Paroxetine HCl (Paxil) 20 mg PO DAILY [facility] Last Admin: 04/09/18 09:38 Dose: 20 mg Rosuvastatin Calcium (Crestor) 10 mg PO HS [facility] Last Admin: 04/08/18 21:55 Dose: 10 mg Trazodone HCl (Desyrel) 50 mg PO HS PRN PRN Reason: Insomnia - Labs Labs: 04/09/18 06:39 04/09/18 06:39 PT 12.6 SECONDS (9.7-12.2) H 04/05/18 12:58 INR 1.2 04/05/18 12:58 APTT 31 SECONDS (21-34) 04/05/18 12:58 - Constitutional Appears: No Acute Distress - Head Exam Head Exam: ATRAUMATIC - Eye Exam Eye Exam: EOMI, PERRL - ENT Exam ENT Exam: Mucous Membranes Moist - Respiratory Exam Respiratory Exam: Decreased Breath Sounds, NORMAL BREATHING PATTERN - Cardiovascular Exam Cardiovascular Exam: REGULAR RHYTHM, +S1, +S2. absent: Murmur - GI/Abdominal Exam GI & Abdominal Exam: Soft, Normal Bowel Sounds. absent: Firm, Rigid, Tenderness - Neurological Exam Neurological Exam: Alert, Awake Additional comments: +5/5 b/l upper extremities strength Drifting noted bilateral leg function test +4/5 B/l lower extremities strength Sensory intact Very mild slurred speech; which is baseline No noted facial droop - Skin Skin Exam: Normal Color Assessment and Plan (1) Facial droop Assessment & Plan: Resolved Imaging: Head CT w/o contrast: No acute intracranial hemorrhage. Moderate diffuse confluent periventricular white matter ischemic changes with extension into the deep and subcortical white matter with the changes become more patchy in appearance. 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 MRI W/O contrast: No acute intracranial abnormality. Moderate chronic microangiopathic changes and moderate age-related global parenchymal volume loss. Medications: * ASA 81mg PO QD * Plavix 75mg PO QD * Crestor 10mg PO QD * PT/ OT Status: Acute (2) Dementia Assessment & Plan: Possibly with parkinson's dementia Continue home medications: * Donepezil 10mg PO HS Patient is stable and cleared from neurology stand point, continue all current regiment and physical and occupation therapy Thank you for the consultation All plans and management discussed with Dr. Merlos Status: Acute
[2018-04-09 22:37] LABS: OSMOLALITY,URINE 863 mosm/kg (300-1000)
[2018-04-09 22:38] LABS: SQUAMOUS EPITHIAL < 1 /hpf (0-5); URINE BACTERIA RARE (<OCC); URINE BILIRUBIN NEGATIVE (NEGATIVE); URINE BLOOD 1+ (NEGATIVE); URINE CLARITY Clear (Clear); URINE COLOR Yellow (YELLOW); URINE GLUCOSE (UA) NORMAL (Normal); URINE LEUKOCYTE ESTERASE NEG Leu/uL (Negative); URINE PROTEIN 1+ mg/dL (NEGATIVE); URINE UROBILINOGEN NORMAL mg/dL (0.2-1.0)
[2018-04-10] MEDS: Levothyroxine 75 MCG TAB PO SCH (05:36)
--- NOTE | 2018-04-10 06:45 | CON ---
DATE: 04/10/2018 NEPHROLOGY CONSULTATION HISTORY OF PRESENT ILLNESS: A 78-year-old male with past medical history of dementia, hypothyroidism, arthritis, hypertension, diabetes, depression/anxiety, previous alcohol abuse and prostate cancer presented status post right-sided facial droop and drooling. Nephrology now being consulted for worsening hyponatremia. History from patient is somewhat limited due to dementia. The patient was brought to ED after daughter noticed that he was having right-sided facial droop and drooling. The patient had first stroke called in ER with brain MRI not showing any acute infarct or concerning to cranial lesions. The patient was placed on IV antibiotics with ceftriaxone and azithromycin for possible pneumonia with chest x-ray showing bilateral lower lobe infiltrate. Per nursing staff, the patient has been having poor p.o. intake. The patient denies taking excess amount of water. The patient otherwise is not ambulating much. He was previously on IV fluids with normal saline of 100 mL an hour, but discontinued yesterday. He was also receiving chlorthalidone as per his home blood pressure medication regimen. PAST MEDICAL HISTORY: As above. SOCIAL HISTORY: Previous drinker. FAMILY HISTORY: Father with prostate CA. Mother with throat CA. Elder sister and brother with dementia. Son with liver/lung CA. REVIEW OF SYSTEMS: CONSTITUTIONAL: Decreased appetite. HEENT: He was having difficulty swallowing previously, but reports that has improved. RESPIRATORY: Reports some shortness of breath and cough without sputum production. CARDIOVASCULAR: Denies chest pains or palpitations. GASTROINTESTINAL: Denies any nausea or vomiting. No diarrhea reported. GENITOURINARY: Denies any dysuria, knows when he has to urinate. MUSCULOSKELETAL: Denies any back pain or arthralgias. NEUROLOGIC: Denies any headache. PSYCHIATRIC: History of depression, anxiety, and dementia on Paxil. PHYSICAL EXAMINATION: VITAL SIGNS: This evening, blood pressure 159/86, heart rate 75, respirations 20, temperature 98.6, and O2 saturation 98% on 2 L O2 via nasal cannula. GENERAL: No distress. Conversing coherently and pleasantly. HEENT: Moist mucous membranes. Nonicteric. No cervical lymphadenopathy. RESPIRATORY: Bilateral basal fine rales. No wheezing. No rhonchi. CARDIOVASCULAR: Heart sounds S1 and S2 normal. No murmurs. No gallops. No rubs. GASTROINTESTINAL: Abdomen is soft, nontender, and nondistended. GENITOURINARY: No bladder distention. SKIN: Warm. No cyanosis. EXTREMITIES: No lower leg edema. NEUROLOGIC: Follows commands appropriately. Bilateral tremor of outstretched hand, left more than right. PSYCHIATRIC: Normal mood. Not agitated. LABORATORY DATA: This morning: CBC; WBC 14.7, hemoglobin 12.9, hematocrit 37.3, platelets 226. Chemistry panel: Sodium 124 decreased from 135 two days ago, potassium 4.1, chloride 89, bicarb 22, BUN 8, creatinine 0.5, glucose 100, calcium 9.1, phosphorous 3.5, magnesium 1.7. AST 47, ALT 65, albumin 4.1, TSH 5.6, free T4 1.53. DIAGNOSTIC DATA: Chest x-ray directly observed showing some bilateral lower lobe fatty infiltrate, although may be chronic. ASSESSMENT AND PLAN: 1. Hyponatremia: Etiology is unclear with volume depletion unlikely with the patient having received adequate IV fluids; despite the patient being on small dose of Dyazide diuretic. Urine lytes not currently available. However, given current pneumonia and with the patient on SSRI, SIADH secretion is a likely possibility. Awaiting urine osmolality and sodium. Checking uric acid level. A 4.5 L p.o. fluid restriction. Avoid dosing med in hypotonic solution. Checking orthostatics, vitals. 2. Hypertension: Blood pressure has been elevated with the patient on chlorthalidone 25 mg daily and metoprolol 25 mg b.i.d. We will start amlodipine 5 mg daily and discontinue hydrochlorothiazide. Thank you for this referral. We will be following up. Sinan Mandel MD
--- NOTE | 2018-04-10 07:41 | CP.PCM.PN ---
Subjective - Date & Time of Evaluation Date of Evaluation: 04/10/18 Time of Evaluation: 07:41 - Subjective Subjective: PGY-[address] Salter Patient was seen and examined at bedside. Per nursing no acute events occurred overnight. Patient still states he has some difficulty swallowing .Patient also reports a non-productive cough. He denies any fevers, chills, nausea, vomiting , changes in vision, or any other complaints. Objective - Vital Signs/Intake and Output Vital Signs (last 24 hours): Temp Pulse Resp BP Pulse Ox 98.1 F 90 20 167/92 H 98 04/09/18 23:50 04/10/18 03:45 04/09/18 23:50 04/09/18 23:50 04/09/18 23:50 Intake and Output: 04/10/18 04/10/18 06:59 18:59 Intake Total 620 Output Total 350 Balance 270 - Medications Medications: Current Medications Amlodipine Besylate (Norvasc) 5 mg PO DAILY [facility] Last Admin: 04/09/18 22:22 Dose: 5 mg Aspirin (Ecotrin) 81 mg PO DAILY [facility] Last Admin: 04/09/18 09:38 Dose: 81 mg Clopidogrel Bisulfate (Plavix) 75 mg PO DAILY [facility] Last Admin: 04/09/18 09:38 Dose: 75 mg Dextrose (Dextrose 50% Inj) 0 ml IV STAT PRN; Protocol PRN Reason: Hypoglycemia Protocol Dextrose (Glutose 15) 0 gm PO ONCE PRN; Protocol PRN Reason: Hypoglycemia Protocol Donepezil HCl (Aricept) 10 mg PO HS [facility] Last Admin: 04/09/18 22:21 Dose: 10 mg Enoxaparin Sodium (Lovenox) 40 mg SC DAILY [facility] Last Admin: 04/09/18 09:43 Dose: 40 mg Glucagon (Glucagen Diagnostic Kit) 0 mg IM STAT PRN; Protocol PRN Reason: Hypoglycemia Protocol Levothyroxine Sodium (Synthroid) 75 mcg PO DAILY@0630 [facility] Last Admin: 04/10/18 05:36 Dose: 75 mcg Metformin HCl (Glucophage) 500 mg PO BID [facility] Last Admin: 04/09/18 18:01 Dose: 500 mg Metoprolol Tartrate (Lopressor) 25 mg PO BID [facility] Last Admin: 04/09/18 18:01 Dose: 25 mg Paroxetine HCl (Paxil) 20 mg PO DAILY [facility] Last Admin: 04/09/18 09:38 Dose: 20 mg Rosuvastatin Calcium (Crestor) 10 mg PO HS [facility] Last Admin: 04/09/18 22:22 Dose: 10 mg Trazodone HCl (Desyrel) 50 mg PO HS PRN PRN Reason: Insomnia - Labs Labs: 04/09/18 06:39 04/09/18 06:39 PT 12.6 SECONDS (9.7-12.2) H 04/05/18 12:58 INR 1.2 04/05/18 12:58 APTT 31 SECONDS (21-34) 04/05/18 12:58 - Head Exam Head Exam: ATRAUMATIC, NORMAL INSPECTION, NORMOCEPHALIC - Eye Exam Eye Exam: EOMI, Normal appearance, PERRL Pupil Exam: NORMAL ACCOMODATION, PERRL - ENT Exam ENT Exam: Mucous Membranes Moist, Normal Oropharynx - Respiratory Exam Respiratory Exam: Clear to Ausculation Bilateral, NORMAL BREATHING PATTERN - Cardiovascular Exam Cardiovascular Exam: REGULAR RHYTHM, +S1, +S2 - GI/Abdominal Exam GI & Abdominal Exam: Soft, Normal Bowel Sounds - Extremities Exam Extremities Exam: Full ROM - Neurological Exam Neurological Exam: Alert, Awake, CN II-XII Intact, Normal Gait, Oriented x3 - Psychiatric Exam Psychiatric exam: Depressed - Skin Skin Exam: Dry, Intact, Normal Color Assessment and Plan - Assessment and Plan (Free Text) Plan: TIA Admit to tele CODE STROKE initiated, Stroke team consulted CT Head w/o contrast (04/05/18): No acute intracranial hemorrhage. Moderate diffuse confluent periventricular white matter ischemic changes with extension into the deep and subcortical white matter with the changes become more patchy in appearance. 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 MRI (04/06/18): No acute intracranial abnormality. Moderate chronic microangiopathic changes. Moderate age-related global parenchymal volume loss. Dr. Gilliam, Neuro credit consultant, help appreciated - not tPA candidate ASA 325mg PO taken by patient after symptoms began -ASA 81mg PO Daily Plavix 75mg PO Given in ED -Plavix 75mg PO Daily Crestor 10mg PO HS Hyponatremia SIADH vs. Hypovolemia -Nephrology consulted. Help appreciated. -Diurectics held. -IL Normal saline given. -Repeat CMP and urine osmolarity. Pneumonia, Community Acquired Afebrile, WBC elevated on admission CT Angio (04/06/18): Multifocal pneumonia involving posterior segment of RUL and both lower lobes CXR (04/05/18): Patchy b/l lobe infiltrates Azithromycin 500mg IV Daily (start 04/06/18) Ceftriaxone 1gm IV Daily (start 04/06/18) H.influenzae: negative Mycoplasma pneumoniae IgM: negative N.meningitidis: Negative Group B strep antigen: negative S. pneumoniae: Negative R/o Dissection ? Widened mediastinum on CXR as interpreted by ED physician CT Angio (04/06/18): Aneurysmal dilatation of ascending aorta measuring 3.9 x 3.6 cm. No evidence of dissection. Multifocal pneumonia involving posterior segment of RUL and both lower lobes Aortic Aneurysm CT Angio (04/06/18): Aneurysmal dilatation of ascending aorta measuring 3.9 x 3.6 cm. No evidence of dissection. will require f/u with repeat CT in 6 months time for evaluation of expansion/ extension of aneurysm Hypothyroidism Levothyroxine 75mcg PO QD TSH: 5.60 Free T4: 1.53 Dementia/? Parkinsons Donepezil 10mg PO QD HTN Elevated this AM, will restart home medications Chlorthalidone 25mg PO QD Metoprolol tartate 25mg PO BID DM A1c 7.3, well controlled Hypoglycemia protocol Accuchecks ACHS Restart Metformin 500mg PO BID ISS Depression/Anxiety Paroxetine 20mg PO QD HOLD home medications at this time: Clonazepam, Risperidone Insomnia Trazadone 50mg PO HS Prostate cancer s/p radioactive seeding Electrolyte abnormality Will follow daily, and replete as needed PPX Lovenox 40mg SC daily GI not indicated [facility] Richy Rainey PGY-2 All management per Joie
[2018-04-10 08:45] LABS: ALB/GLOB RATIO 1.2 (1.0-2.1); ALT/SGPT 84 U/L (21-72); AST/SGOT 66 U/L (17-59); BLOOD UREA NITROGEN 13 mg/dL (9-20); GFR AFRICAN-AMERICAN > 60; GFR NON-AFRICAN AMERICAN > 60; URIC ACID 2.8 mg/dL (3.5-8.5)
[2018-04-10] MEDS ORDERED: Sodium Chloride 0.9% 1,000 ML IV SCH ×2 (09:15→17:45)
[2018-04-10] MEDS: Enoxaparin 40 mg Syringe SC SCH (10:47)
--- NOTE | 2018-04-10 12:07 | CP.PCM.PN ---
<FelisaLizzie jones - Last Filed: 04/10/18 13:37> Subjective - Date & Time of Evaluation Date of Evaluation: 04/10/18 Time of Evaluation: 12:05 - Subjective Subjective: PGY-3 nephrology progress note for Dr. Mandel's service Patient seen and examined at bedside. No acute distress. Patient states that he does have dyspnea. He denies chest pain, abd pain, n/v, diarrhea, fevers, chills. He continues to report difficult swallowing, is pending barium swallow. No other complaints. Nurse reports multiple episodes of diarrhea yesterday. Objective - Vital Signs/Intake and Output Vital Signs (last 24 hours): Temp Pulse Resp BP Pulse Ox 98.2 F 80 18 122/73 96 04/10/18 07:40 04/10/18 08:00 04/10/18 07:40 04/10/18 10:50 04/10/18 07:40 Intake and Output: 04/10/18 04/10/18 06:59 18:59 Intake Total 620 Output Total 350 Balance 270 - Medications Medications: Current Medications Amlodipine Besylate (Norvasc) 5 mg PO DAILY [facility] Last Admin: 04/10/18 10:47 Dose: 5 mg Aspirin (Ecotrin) 81 mg PO DAILY [facility] Last Admin: 04/10/18 10:47 Dose: 81 mg Clopidogrel Bisulfate (Plavix) 75 mg PO DAILY [facility] Last Admin: 04/10/18 10:47 Dose: 75 mg Dextrose (Dextrose 50% Inj) 0 ml IV STAT PRN; Protocol PRN Reason: Hypoglycemia Protocol Dextrose (Glutose 15) 0 gm PO ONCE PRN; Protocol PRN Reason: Hypoglycemia Protocol Donepezil HCl (Aricept) 10 mg PO HS [facility] Last Admin: 04/09/18 22:21 Dose: 10 mg Enoxaparin Sodium (Lovenox) 40 mg SC DAILY [facility] Last Admin: 04/10/18 10:47 Dose: 40 mg Glucagon (Glucagen Diagnostic Kit) 0 mg IM STAT PRN; Protocol PRN Reason: Hypoglycemia Protocol Levothyroxine Sodium (Synthroid) 75 mcg PO DAILY@0630 [facility] Last Admin: 04/10/18 05:36 Dose: 75 mcg Metformin HCl (Glucophage) 500 mg PO BID [facility] Last Admin: 04/10/18 10:48 Dose: 500 mg Metoprolol Tartrate (Lopressor) 25 mg PO BID [facility] Last Admin: 04/10/18 10:50 Dose: 25 mg Paroxetine HCl (Paxil) 20 mg PO DAILY [facility] Last Admin: 04/10/18 10:47 Dose: 20 mg Rosuvastatin Calcium (Crestor) 10 mg PO HS [facility] Last Admin: 04/09/18 22:22 Dose: 10 mg Trazodone HCl (Desyrel) 50 mg PO HS PRN PRN Reason: Insomnia - Labs Labs: 04/09/18 06:39 04/10/18 06:51 PT 12.6 SECONDS (9.7-12.2) H 04/05/18 12:58 INR 1.2 04/05/18 12:58 APTT 31 SECONDS (21-34) 04/05/18 12:58 - Constitutional Appears: Well, No Acute Distress - Head Exam Head Exam: ATRAUMATIC, NORMAL INSPECTION, NORMOCEPHALIC - Eye Exam Eye Exam: EOMI, Normal appearance - ENT Exam ENT Exam: Mucous Membranes Moist - Respiratory Exam Respiratory Exam: Clear to Ausculation Bilateral, NORMAL BREATHING PATTERN. absent: Rhonchi, Wheezes, Respiratory Distress - Cardiovascular Exam Cardiovascular Exam: REGULAR RHYTHM, +S1, +S2. absent: Bradycardia, Tachycardia , Murmur - GI/Abdominal Exam GI & Abdominal Exam: Soft, Normal Bowel Sounds. absent: Distended, Firm, Rigid , Tenderness - Extremities Exam Extremities Exam: Normal Inspection. absent: Pedal Edema, Tenderness - Neurological Exam Neurological Exam: Awake, Oriented x3 - Skin Skin Exam: Dry, Intact, Normal Color, Warm Assessment and Plan - Assessment and Plan (Free Text) Plan: hyponatremia - most likely due to hypovolemia secondary to diarrhea and poor PO intake however there is a possibility of SIADH - orthostatic vitals did show drop in blood pressure - patient did received IVF over hospital course however he was on diuretics and continued to have multiple episodes of diarrhea - will stop diuretic and replete 1 L normal saline and repeat BMP and urine sodium and osm - will also order echo HTN - diuretic discontinued, norvasc started yesterday - continue metroprolol, norvasc - blood pressure stable, continue to monitor case seen and discussed with attending, Dr. Mandel <Sinan Mandel - Last Filed: 04/10/18 19:53> Objective - Vital Signs/Intake and Output Vital Signs (last 24 hours): Temp Pulse Resp BP Pulse Ox 98.7 F 70 20 138/75 98 04/10/18 16:04 04/10/18 16:04 04/10/18 16:04 04/10/18 18:18 04/10/18 16:04 Intake and Output: 04/10/18 04/11/18 18:59 06:59 Output Total 240 Balance -240 - Medications Medications: Current Medications Amlodipine Besylate (Norvasc) 5 mg PO DAILY [facility] Last Admin: 04/10/18 10:47 Dose: 5 mg Aspirin (Ecotrin) 81 mg PO DAILY [facility] Last Admin: 04/10/18 10:47 Dose: 81 mg Clonazepam (Klonopin) 0.5 mg PO TID [facility] Last Admin: 04/10/18 18:18 Dose: 0.5 mg Clopidogrel Bisulfate (Plavix) 75 mg PO DAILY [facility] Last Admin: 04/10/18 10:47 Dose: 75 mg Dextrose (Dextrose 50% Inj) 0 ml IV STAT PRN; Protocol PRN Reason: Hypoglycemia Protocol Dextrose (Glutose 15) 0 gm PO ONCE PRN; Protocol PRN Reason: Hypoglycemia Protocol Donepezil HCl (Aricept) 10 mg PO HS [facility] Last Admin: 04/09/18 22:21 Dose: 10 mg Enoxaparin Sodium (Lovenox) 40 mg SC DAILY [facility] Last Admin: 04/10/18 10:47 Dose: 40 mg Glucagon (Glucagen Diagnostic Kit) 0 mg IM STAT PRN; Protocol PRN Reason: Hypoglycemia Protocol Sodium Chloride (Sodium Chloride 0.9%) 1,000 mls @ 250 mls/hr IV .Q4H [facility] Stop: 04/10/18 21:44 Last Admin: 04/10/18 17:40 Dose: 250 mls/hr Levothyroxine Sodium (Synthroid) 75 mcg PO DAILY@0630 [facility] Last Admin: 04/10/18 05:36 Dose: 75 mcg Metformin HCl (Glucophage) 500 mg PO BID [facility] Last Admin: 04/10/18 10:48 Dose: 500 mg Metoprolol Tartrate (Lopressor) 25 mg PO BID [facility] Last Admin: 04/10/18 18:18 Dose: 25 mg Mirtazapine (Remeron) 7.5 mg PO HS [facility] Paroxetine HCl (Paxil) 20 mg PO DAILY [facility] Last Admin: 04/10/18 10:47 Dose: 20 mg Risperidone (Risperdal Tab) 0.5 mg PO HS [facility]EX Rosuvastatin Calcium (Crestor) 10 mg PO HS [facility] Last Admin: 04/09/18 22:22 Dose: 10 mg - Labs Labs: 04/09/18 06:39 04/10/18 14:16 PT 12.6 SECONDS (9.7-12.2) H 04/05/18 12:58 INR 1.2 04/05/18 12:58 APTT 31 SECONDS (21-34) 04/05/18 12:58 Attending/Attestation - Attestation I have personally seen and examined this patient.: Yes I have fully participated in the care of the patient.: Yes I have reviewed all pertinent clinical information, including history, physical exam and plan: Yes Notes (Text): Patient seen and examined; I agree with the resident's note as above with the following additions/edits: Patient admitted with R facial droop, treated for CAP, nephrology following for hyponatremia; Main differential for etiology of hyponatremia is volume depletion v SIADH ( although both can be present) which is consistent with patient's very high urine osm; orthostatic changes as well as positive response to 1L NS challenge ( serum Na increasing from 121 -> 124) indicative of underlying volume depletion; daughter also gives history of persistent diarrhea since day before admission and continuing yesterday as well; -giving another 1L NS challenge this evening, repeating bmp and urine osm tonight; goal is to remove any underlying volume depletion; -continue amlodipine 5 mg daily for htn; -f/u echo results; -avoid dosing meds in hypotonic fluids; -if no signficant improvement in serum Na, we will consider tolvaptan; Thank you for allowing us to participate in the care of this patient, we will continue to follow; 04/10/18 19:42
--- NOTE | 2018-04-10 12:57 | RAD ---
Date of service: 04/10/2018 PROCEDURE: Modified barium swallow study. HISTORY: risk for aspiration COMPARISON: None available. TECHNIQUE: Examination was performed under fluoroscopic guidance in conjunction with speech pathology department. Guidance The patient ingested various consistencies. FINDINGS: On the lateral projection, the epiglottis, airways and prevertebral soft tissues are normal. There are multilevel degenerative changes in the spine. There was a 1 incidence of silent aspiration with puree consistency barium. Otherwise, no deep laryngeal penetration or aspiration was observed during this study. There was persistent residual in the vallecula and piriform sinus. The total fluoroscopic time was 3.4 minutes. IMPRESSION: One incidence of silent aspiration with puree consistency barium. Please refer to the detailed report and recommendations of the speech pathologist.
[2018-04-10 14:29] LABS: OSMOLALITY,URINE 779 mosm/kg (300-1000)
[2018-04-10 14:34] LABS: BLOOD UREA NITROGEN 14 mg/dL (9-20); CALCIUM 8.5 mg/dl (8.6-10.4); GFR AFRICAN-AMERICAN > 60; GFR NON-AFRICAN AMERICAN > 60
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
--- NOTE | 2018-04-10 18:29 | CARD ---
APPROVED REPORT Date of service: 04/10/2018 EXAM: Two-dimensional and M-mode echocardiogram with Doppler and color Doppler. Other Information Quality : GoodRhythm : INDICATION Dyspnea Pneumonia 2D DIMENSIONS IVSd0.8 (0.7-1.1cm)LVDd3.9 (3.9-5.9cm) PWd0.9 (0.7-1.1cm)LVDs2.4 (2.5-4.0cm) FS (%) 37.4 %LVEF (%)68.1 (>50%) M-Mode DIMENSIONS Left Atrium (MM)2.55 (2.5-4.0cm)IVSd0.93 (0.7-1.1cm) Aortic Root3.70 (2.2-3.7cm)LVDd4.40 (4.0-5.6cm) Aortic Cusp Exc.2.01 (1.5-2.0cm)PWd0.90 (0.7-1.1cm) FS (%) 36 %LVDs2.84 (2.0-3.8cm) LVEF (%)65 (>50%) Aortic Valve AI P 1/2 [id number] Mitral Valve MV E Trdcajlj64.8cm/sMV A Xqzfrgli54.9cm/sE/A ratio0.8 TDI E/Lateral E'0.0E/Medial E'0.0 Tricuspid Valve TR Peak [id number]/sTR Peak [id number] LEFT VENTRICLE The left ventricle is normal size. There is normal left ventricular wall thickness. The left ventricular function is normal. The left ventricular ejection fraction is within the normal range. There is normal LV segmental wall motion. Transmitral Doppler flow pattern is normal for age. RIGHT VENTRICLE The right ventricle is normal size. The right ventricular systolic function is normal. ATRIA The left atrium size is normal. The right atrium size is normal. AORTIC VALVE The aortic valve is normal in structure. There is mild aortic regurgitation. MITRAL VALVE The mitral valve is normal in structure. There is no mitral valve regurgitation noted. TRICUSPID VALVE The tricuspid valve is normal in structure. There is mild tricuspid regurgitation. Right ventricular systolic pressure is estimated at less than 30 mmHg. PULMONIC VALVE The pulmonary valve is normal in structure. GREAT VESSELS The aortic root displays mild to moderate sclerocalcific changes. The aortic root is normal in size. The IVC is normal in size and collapses >50% with inspiration. PERICARDIAL EFFUSION There is no pericardial effusion. <Conclusion> Normal bi-ventricular function. There is mild aortic regurgitation. There is mild tricuspid regurgitation. The aortic root displays mild to moderate sclerocalcific changes. There is no pericardial effusion.
[2018-04-11] MEDS: Levothyroxine 75 MCG TAB PO SCH (05:45)
--- NOTE | 2018-04-11 07:06 | CP.PCM.PN ---
Subjective - Date & Time of Evaluation Date of Evaluation: 04/11/18 Time of Evaluation: 07:06 - Subjective Subjective: PGY-[address] Salter's Service Patient seen and examined at bedside. Per nursing no acute events occurred overnight. Patient does report some difficulty swallowing. Patient denies any chest pain, fevers, chills, nausea, vomiting ,abdominal pain, dizziness, or any other complaints. Objective - Vital Signs/Intake and Output Vital Signs (last 24 hours): Temp Pulse Resp BP Pulse Ox 98.1 F 77 20 143/73 99 04/10/18 23:45 04/11/18 00:01 04/10/18 23:45 04/10/18 23:45 04/10/18 23:45 Intake and Output: 04/11/18 04/11/18 06:59 18:59 Intake Total 1400 Output Total 725 30 Balance 675 -30 - Medications Medications: Current Medications Amlodipine Besylate (Norvasc) 5 mg PO DAILY [facility] Last Admin: 04/10/18 10:47 Dose: 5 mg Aspirin (Ecotrin) 81 mg PO DAILY [facility] Last Admin: 04/10/18 10:47 Dose: 81 mg Clonazepam (Klonopin) 0.5 mg PO TID [facility] Last Admin: 04/10/18 18:18 Dose: 0.5 mg Clopidogrel Bisulfate (Plavix) 75 mg PO DAILY [facility] Last Admin: 04/10/18 10:47 Dose: 75 mg Dextrose (Dextrose 50% Inj) 0 ml IV STAT PRN; Protocol PRN Reason: Hypoglycemia Protocol Dextrose (Glutose 15) 0 gm PO ONCE PRN; Protocol PRN Reason: Hypoglycemia Protocol Donepezil HCl (Aricept) 10 mg PO HS [facility] Last Admin: 04/10/18 22:24 Dose: 10 mg Enoxaparin Sodium (Lovenox) 40 mg SC DAILY [facility] Last Admin: 04/10/18 10:47 Dose: 40 mg Glucagon (Glucagen Diagnostic Kit) 0 mg IM STAT PRN; Protocol PRN Reason: Hypoglycemia Protocol Levothyroxine Sodium (Synthroid) 75 mcg PO DAILY@0630 [facility] Last Admin: 04/11/18 05:45 Dose: 75 mcg Metformin HCl (Glucophage) 500 mg PO BID [facility] Last Admin: 04/10/18 18:00 Dose: Not Given Metoprolol Tartrate (Lopressor) 25 mg PO BID [facility] Last Admin: 04/10/18 18:18 Dose: 25 mg Mirtazapine (Remeron) 7.5 mg PO [facility] Last Admin: 04/10/18 22:26 Dose: 7.5 mg Paroxetine HCl (Paxil) 20 mg PO DAILY [facility] Last Admin: 04/10/18 10:47 Dose: 20 mg Risperidone (Risperdal Tab) 0.5 mg PO [facility] Last Admin: 04/10/18 22:26 Dose: 0.5 mg Rosuvastatin Calcium (Crestor) 10 mg PO [facility] Last Admin: 04/10/18 22:25 Dose: 10 mg - Labs Labs: 04/09/18 06:39 04/10/18 14:16 PT 12.6 SECONDS (9.7-12.2) H 04/05/18 12:58 INR 1.2 04/05/18 12:58 APTT 31 SECONDS (21-34) 04/05/18 12:58 - Head Exam Head Exam: ATRAUMATIC, NORMAL INSPECTION, NORMOCEPHALIC - Eye Exam Eye Exam: EOMI, Normal appearance, PERRL. absent: Periorbital tenderness Pupil Exam: NORMAL ACCOMODATION, PERRL - ENT Exam ENT Exam: Mucous Membranes Moist, Normal Oropharynx - Respiratory Exam Respiratory Exam: Clear to Ausculation Bilateral, NORMAL BREATHING PATTERN. absent: Chest Wall Tenderness, Prolonged Expiratory Phase, Respiratory Distress - Cardiovascular Exam Cardiovascular Exam: REGULAR RHYTHM, +S1, +S2 - GI/Abdominal Exam GI & Abdominal Exam: Soft, Normal Bowel Sounds. absent: Rigid, Hyperactive Bowel Sounds - Neurological Exam Neurological Exam: Alert, Awake, CN II-XII Intact, Normal Gait, Oriented x3 - Psychiatric Exam Psychiatric exam: Normal Affect, Normal Mood. absent: Depressed - Skin Skin Exam: Dry, Intact, Normal Color, Warm Assessment and Plan - Assessment and Plan (Free Text) Assessment: 78 year ol Plan: TIA Admit to tele CODE STROKE initiated, Stroke team consulted CT Head w/o contrast (04/05/18): No acute intracranial hemorrhage. Moderate diffuse confluent periventricular white matter ischemic changes with extension into the deep and subcortical white matter with the changes become more patchy in appearance. 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 MRI (04/06/18): No acute intracranial abnormality. Moderate chronic microangiopathic changes. Moderate age-related global parenchymal volume loss. Dr. Gilliam, Neuro senior science consultant, help appreciated - not tPA candidate ASA 325mg PO taken by patient after symptoms began -ASA 81mg PO Daily Plavix 75mg PO Given in ED -Plavix 75mg PO Daily Crestor 10mg PO HS Hyponatremia SIADH vs. Hypovolemia -Nephrology consulted. Help appreciated. -Diurectics held. -IL Normal saline given. -Repeat CMP and urine osmolarity Pneumonia, Community Acquired Afebrile, WBC elevated on admission CT Angio (04/06/18): Multifocal pneumonia involving posterior segment of RUL and both lower lobes CXR (04/05/18): Patchy b/l lobe infiltrates Azithromycin 500mg IV Daily (start 04/06/18) Ceftriaxone 1gm IV Daily (start 04/06/18) H.influenzae: negative Mycoplasma pneumoniae IgM: negative N.meningitidis: Negative Group B strep antigen: negative S. pneumoniae: Negative R/o Dissection ? Widened mediastinum on CXR as interpreted by ED physician CT Angio (04/06/18): Aneurysmal dilatation of ascending aorta measuring 3.9 x 3.6 cm. No evidence of dissection. Multifocal pneumonia involving posterior segment of RUL and both lower lobes Aortic Aneurysm CT Angio (04/06/18): Aneurysmal dilatation of ascending aorta measuring 3.9 x 3.6 cm. No evidence of dissection. will require f/u with repeat CT in 6 months time for evaluation of expansion/ extension of aneurysm Hypothyroidism Levothyroxine 75mcg PO QD TSH: 5.60 Free T4: 1.53 Dementia/? Parkinsons Donepezil 10mg PO QD HTN Elevated this AM, will restart home medications Chlorthalidone 25mg PO QD Metoprolol tartate 25mg PO BID DM A1c 7.3, well controlled Hypoglycemia protocol Accuchecks ACHS Restart Metformin 500mg PO BID ISS Depression/Anxiety Paroxetine 20mg PO QD HOLD home medications at this time: Clonazepam, Risperidone Psychiatry consulted. Help appreciated. Insomnia Trazadone 50mg PO HS Prostate cancer s/p radioactive seeding Electrolyte abnormality Will follow daily, and replete as needed PPX Lovenox 40mg SC daily GI not indicated SCDs Richy Rainey PGY-2 All management per Joie
[2018-04-11 08:23] LABS: BASO # 0.1 K/uL (0.0-0.2); BASO % 0.5 % (0.0-2.0); EOS # 0.5 K/uL (0.0-0.7); EOS % 3.6 % (0.0-4.0); HEMOGLOBIN 11.9 g/dL (12.0-18.0); LYMPH # 3.6 K/uL (1.0-4.3); LYMPH % 25.5 % (20.0-40.0); MEAN CELL VOLUME 86.1 fL (80.0-94.0); MEAN CORPUSCULAR HGB CONC 34.8 g/dL (33.0-37.0); MEAN PLATELET VOLUME 8.9 fL (7.2-11.7); MONO # 1.8 K/uL (0.0-0.8); MONO % 12.7 % (0.0-10.0); NEUT # 8.3 K/uL (1.8-7.0); NEUT % 57.7 % (50.0-75.0); RBC 3.96 Mil/uL (4.40-5.90); RED CELL DISTRIBUTION WIDTH 14.9 % (11.5-14.5); WHITE BLOOD COUNT 14.3 K/uL (4.8-10.8)
[2018-04-11 08:46] LABS: ALB/GLOB RATIO 1.3 (1.0-2.1); ALBUMIN 3.7 g/dL (3.5-5.0); ALT/SGPT 97 U/L (21-72); AST/SGOT 64 U/L (17-59); BLOOD UREA NITROGEN 13 mg/dL (9-20); CALCIUM 8.6 mg/dl (8.6-10.4); GFR AFRICAN-AMERICAN > 60; GFR NON-AFRICAN AMERICAN > 60
[2018-04-11] MEDS: Enoxaparin 40 mg Syringe SC SCH (09:24)
[2018-04-11] MEDS ORDERED: Sodium Chloride 0.9% 1,000 ML IV SCH (10:00)
--- NOTE | 2018-04-11 10:56 | CP.PCM.PN ---
Subjective - Date & Time of Evaluation Date of Evaluation: 04/11/18 Time of Evaluation: 10:53 - Subjective Subjective: Viraj Green PGY-1 [facility] Progress Note Patient seen and examined at bedside. Patient complains of difficulty swallowing. Pt reports minimal appetite but nursing reports that he ate his full meal today. Patient expressed that he felt alone and questioned where his daughter is. Patient urinating in mendoza with about 560 cc collected. Patient still experiencing diarrhea as per nursing however, not as liquid as prior bowel movements. Patient denies chest pain, sob, n/v, fevers and chills. Objective - Vital Signs/Intake and Output Vital Signs (last 24 hours): Temp Pulse Resp BP Pulse Ox 98.6 F 68 20 136/72 98 04/11/18 08:00 04/11/18 08:03 04/11/18 08:00 04/11/18 09:25 04/11/18 08:00 Intake and Output: 04/11/18 04/11/18 06:59 18:59 Intake Total 1400 Output Total 725 30 Balance 675 -30 - Medications Medications: Current Medications Amlodipine Besylate (Norvasc) 5 mg PO DAILY [facility] Last Admin: 04/11/18 09:25 Dose: 5 mg Aspirin (Ecotrin) 81 mg PO DAILY [facility] Last Admin: 04/11/18 09:25 Dose: 81 mg Clonazepam (Klonopin) 0.5 mg PO TID [facility] Last Admin: 04/11/18 09:25 Dose: 0.5 mg Clopidogrel Bisulfate (Plavix) 75 mg PO DAILY [facility] Last Admin: 04/11/18 09:24 Dose: 75 mg Dextrose (Dextrose 50% Inj) 0 ml IV STAT PRN; Protocol PRN Reason: Hypoglycemia Protocol Dextrose (Glutose 15) 0 gm PO ONCE PRN; Protocol PRN Reason: Hypoglycemia Protocol Donepezil HCl (Aricept) 10 mg PO HS [facility] Last Admin: 04/10/18 22:24 Dose: 10 mg Enoxaparin Sodium (Lovenox) 40 mg SC DAILY [facility] Last Admin: 04/11/18 09:24 Dose: 40 mg Glucagon (Glucagen Diagnostic Kit) 0 mg IM STAT PRN; Protocol PRN Reason: Hypoglycemia Protocol Sodium Chloride (Sodium Chloride 0.9%) 1,000 mls @ 1,000 mls/hr IV .Q1H [facility] Stop: 04/11/18 10:59 Levothyroxine Sodium (Synthroid) 75 mcg PO DAILY@0630 [facility] Last Admin: 04/11/18 05:45 Dose: 75 mcg Metformin HCl (Glucophage) 500 mg PO BID [facility] Last Admin: 04/11/18 09:25 Dose: 500 mg Metoprolol Tartrate (Lopressor) 25 mg PO BID [facility] Last Admin: 04/11/18 09:25 Dose: 25 mg Mirtazapine (Remeron) 7.5 mg PO [facility] Last Admin: 04/10/18 22:26 Dose: 7.5 mg Paroxetine HCl (Paxil) 20 mg PO DAILY [facility] Last Admin: 04/11/18 09:25 Dose: 20 mg Risperidone (Risperdal Tab) 0.5 mg PO [facility] Last Admin: 04/10/18 22:26 Dose: 0.5 mg Rosuvastatin Calcium (Crestor) 10 mg PO [facility] Last Admin: 04/10/18 22:25 Dose: 10 mg - Labs Labs: 04/11/18 08:11 04/11/18 08:11 PT 12.6 SECONDS (9.7-12.2) H 04/05/18 12:58 INR 1.2 04/05/18 12:58 APTT 31 SECONDS (21-34) 04/05/18 12:58 - Additional Findings Additional findings: - Head Exam Head Exam: ATRAUMATIC, NORMAL INSPECTION, NORMOCEPHALIC - Eye Exam Eye Exam: EOMI, Normal appearance, PERRL Pupil Exam: NORMAL ACCOMODATION, PERRL - ENT Exam ENT Exam: Mucous Membranes Moist, Normal Oropharynx - Respiratory Exam Respiratory Exam: Clear to Ausculation Bilateral, NORMAL BREATHING PATTERN - Cardiovascular Exam Cardiovascular Exam: REGULAR RHYTHM, +S1, +S2 - GI/Abdominal Exam GI & Abdominal Exam: Soft, Normal Bowel Sounds - Exam Exam: Mendoza attached with 600cc red-tinged urine collected - Extremities Exam Extremities Exam: Full ROM - Neurological Exam Neurological Exam: Alert, Awake, CN II-XII Intact, Normal Gait, Oriented x3 - Psychiatric Exam Psychiatric exam: Depressed - Skin Skin Exam: Dry, Intact, Normal Color Assessment and Plan - Assessment and Plan (Free Text) Assessment: Patient is a 78 y.o with PMH of Arthritis, Hypothyroidism, Dementia, HTN, DM, depression/Anxiety, former alcohol abuse and prostate cancer, who was brought him by ambulance with complaint of right-sided facial droop and drooling; being treated for CAP; nephro consulted for hyponatremia Plan: Hyponatremia S/P volume challenge 1L NS today; Na-124; With normal saline bolus ADH drive will decrease allowing removal of free water; Elevated urine osmol s/p fluid challenge suggests elevated ADH secondary to volume depletion Etiology likely elements of both hypovolemic hyponatremia and SIADH Uosm 822; Darcie 143 Tolvaptan 15mg po daily x 1 Check Bmp tonight; Consider another dose of tolvaptan if sodium unchanged Hypertension BP controlled; continue to monitor Continue Norvasc 5mg po daily Continue Metoprolol 25 po bid Medical Management discussed with drywall carrier Dr. Mandel
[2018-04-11 10:58] LABS: OSMOLALITY,URINE 822 mosm/kg (300-1000)
[2018-04-11 12:39] LABS: BLOOD UREA NITROGEN 12 mg/dL (9-20); CALCIUM 8.1 mg/dl (8.6-10.4); GFR AFRICAN-AMERICAN > 60; GFR NON-AFRICAN AMERICAN > 60
[2018-04-11 13:08] LABS: OSMOLALITY,URINE 514 mosm/kg (300-1000)
[2018-04-11] MEDS ORDERED: Tolvaptan 15 MG TAB PO ONE (13:18)
[2018-04-11] MEDS ORDERED: Potassium Chloride 20 mEq/15 ml LIQ UD PO ONE (14:49)
[2018-04-11 23:13] LABS: BLOOD UREA NITROGEN 13 mg/dL (9-20); CALCIUM 9.3 mg/dl (8.6-10.4); GFR AFRICAN-AMERICAN > 60; GFR NON-AFRICAN AMERICAN > 60
[2018-04-12] MEDS: Levothyroxine 75 MCG TAB PO SCH (05:39)
[2018-04-12 07:11] LABS: OSMOLALITY,URINE 319 mosm/kg (300-1000)
--- NOTE | 2018-04-12 07:53 | CP.PCM.PN ---
Subjective - Date & Time of Evaluation Date of Evaluation: 04/12/18 Time of Evaluation: 07:51 - Subjective Subjective: PGY-[address] Salter's Service Patient seen and examined at bedside. Per nursing no acute events occurred overnight - patient afebrile. Patient found lying in bed comfortably. Patient found oriented to person only. Patient denies acute complaints; denies pain anywhere on his body - specifically chest pain, SOB, palpitations, abd pain, fever/chills. Due to patient mental status accurate ROS unavailable. Objective - Vital Signs/Intake and Output Vital Signs (last 24 hours): Temp Pulse Resp BP Pulse Ox 98.0 F 90 20 152/88 H 95 04/12/18 04:00 04/12/18 04:00 04/12/18 04:00 04/12/18 04:00 04/12/18 04:00 Intake and Output: 04/12/18 04/12/18 06:59 18:59 Output Total 3400 Balance -3400 - Medications Medications: Current Medications Amlodipine Besylate (Norvasc) 5 mg PO DAILY [facility] Last Admin: 04/11/18 09:25 Dose: 5 mg Aspirin (Ecotrin) 81 mg PO DAILY [facility] Last Admin: 04/11/18 09:25 Dose: 81 mg Clonazepam (Klonopin) 0.5 mg PO TID [facility] Last Admin: 04/11/18 18:32 Dose: 0.5 mg Clopidogrel Bisulfate (Plavix) 75 mg PO DAILY [facility] Last Admin: 04/11/18 09:24 Dose: 75 mg Dextrose (Dextrose 50% Inj) 0 ml IV STAT PRN; Protocol PRN Reason: Hypoglycemia Protocol Dextrose (Glutose 15) 0 gm PO ONCE PRN; Protocol PRN Reason: Hypoglycemia Protocol Donepezil HCl (Aricept) 10 mg PO HS [facility] Last Admin: 04/11/18 21:34 Dose: 10 mg Enoxaparin Sodium (Lovenox) 40 mg SC DAILY [facility] Last Admin: 04/11/18 09:24 Dose: 40 mg Glucagon (Glucagen Diagnostic Kit) 0 mg IM STAT PRN; Protocol PRN Reason: Hypoglycemia Protocol Levothyroxine Sodium (Synthroid) 75 mcg PO DAILY@0630 [facility] Last Admin: 04/12/18 05:39 Dose: 75 mcg Metformin HCl (Glucophage) 500 mg PO BID [facility] Last Admin: 04/11/18 18:00 Dose: Not Given Metoprolol Tartrate (Lopressor) 25 mg PO BID [facility] Last Admin: 04/11/18 18:33 Dose: 25 mg Mirtazapine (Remeron) 7.5 mg PO [facility] Last Admin: 04/11/18 21:34 Dose: 7.5 mg Paroxetine HCl (Paxil) 20 mg PO DAILY [facility] Last Admin: 04/11/18 09:25 Dose: 20 mg Risperidone (Risperdal Tab) 0.5 mg PO [facility] Last Admin: 04/11/18 21:33 Dose: 0.5 mg Rosuvastatin Calcium (Crestor) 10 mg PO [facility] Last Admin: 04/11/18 21:34 Dose: 10 mg - Labs Labs: 04/11/18 08:11 04/11/18 22:00 PT 12.6 SECONDS (9.7-12.2) H 04/05/18 12:58 INR 1.2 04/05/18 12:58 APTT 31 SECONDS (21-34) 04/05/18 12:58 - Constitutional Appears: Non-toxic, No Acute Distress - Head Exam Head Exam: ATRAUMATIC, NORMAL INSPECTION, NORMOCEPHALIC - Eye Exam Eye Exam: EOMI. absent: Scleral icterus Pupil Exam: PERRL - ENT Exam ENT Exam: Mucous Membranes Moist - Respiratory Exam Respiratory Exam: Decreased Breath Sounds, NORMAL BREATHING PATTERN. absent: Wheezes - Cardiovascular Exam Cardiovascular Exam: REGULAR RHYTHM, +S1, +S2 - GI/Abdominal Exam GI & Abdominal Exam: Soft, Normal Bowel Sounds. absent: Tenderness - Extremities Exam Extremities Exam: Normal Inspection. absent: Pedal Edema - Back Exam Back Exam: absent: CVA tenderness (L), CVA tenderness (R) - Neurological Exam Neurological Exam: Alert, Awake, Oriented x3 - Psychiatric Exam Psychiatric exam: Normal Affect - Skin Skin Exam: Dry, Normal Color, Warm Assessment and Plan - Assessment and Plan (Free Text) Plan: TIA Admit to tele CODE STROKE initiated, Stroke team consulted CT Head w/o contrast (04/05/18): No acute intracranial hemorrhage. Moderate diffuse confluent periventricular white matter ischemic changes with extension into the deep and subcortical white matter with the changes become more patchy in appearance. 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 MRI (04/05/18): No acute inracranial abnormality. Moderate chronic micorangiopathic changes and moderate age-related global parenchymal volume loss. ECHO (04/12/18): EF 68.1 %. Mild to moderate sclerocalcific changes. Mild aortic/ tricuspid regurgitation. No pericardial effusion. Dr. Gilliam/Guero, Neuro business information consultant, help appreciated - not tPA candidate - stable per Neurology ASA 325mg PO taken by patient after symptoms began -ASA 81mg PO Daily Plavix 75mg PO Given in ED -Plavix 75mg PO Daily Crestor 10mg PO HS Dysphagia Modified barium swallow (04/11/18): Silent aspiration with puree consistency barium. Speech pathology reccs -Pureed thin liquids -Sit upright 90 degrees Glucerna Shakes BID per dietary Hyponatremia, resolved Dr. Mandel, Crystalizer Tender consulted, help appreciated - Given Tolvaptan 15mg once Recommends Lasix 20mg Q48hrs, salt tablets TID F/u Dr. Mandel as outpatient in 4 weeks Transaminitis AST/ALT 127/146 today Monitor Perisistent Leukocytosis Afebrile, WBC 12-15 over course C diff negative f/u repeat CXR Pneumonia, Community Acquired Afebrile, WBC resolved CT Angio (04/06/18): Multifocal pneumonia involving posterior segment of RUL and both lower lobes CXR (04/05/18): Patchy b/l lobe infiltrates Atypicals negative Completed 5 day course of: Azithromycin 500mg IV Daily (start 04/05/18) Ceftriaxone 1gm IV Daily (start 04/05/18) Blood culture negative x 5 days f/u PCXR for resolution Diarrhea C diff negative R/o Dissection ? Widened mediastinum on CXR as interpreted by ED physician CT Angio (04/06/18): Aneurysmal dilatation of ascending aorta measuring 3.9 x 3.6 cm. No evidence of dissection. Multifocal pneumonia involving posterior segment of RUL and both lower lobes Aortic Aneurysm CT Angio (04/06/18): Aneurysmal dilatation of ascending aorta measuring 3.9 x 3.6 cm. No evidence of dissection. will require f/u with repeat CT in 6 months time for evaluation of expansion/ extension of aneurysm Hypothyroidism Levothyroxine 75mcg PO QD TSH 5.60, Free T4 1.53 Dementia/? Parkinsons Donepezil 10mg PO QD Psych consulted HTN Elevated this AM, will restart home medications Chlorthalidone 25mg PO QD Metoprolol tartate 25mg PO BID T2DM A1c 7.3, well controlled Hypoglycemia protocol Accuchecks ACHS Metformin 500mg PO BID ISS Depression/Anxiety Paroxetine 20mg PO QD Restart home Clonazepam 0.5mg PO TID Start Mirtazapine 7.5mg PO HS Start Risperidone 0.5mg PO HS Insomnia Trazadone 50mg PO HS Prostate cancer s/p radioactive seeding Electrolyte abnormality Will follow daily, and replete as needed PPX Lovenox 40mg SC daily GI not indicated SCDs Disposition: Pt for discharge today to [facility] PGY-2 All management per Joie
[2018-04-12 08:40] LABS: ALB/GLOB RATIO 1.3 (1.0-2.1); ALBUMIN 3.9 g/dL (3.5-5.0); ALT/SGPT 146 U/L (21-72); AST/SGOT 127 U/L (17-59); BLOOD UREA NITROGEN 11 mg/dL (9-20); CALCIUM 9.2 mg/dl (8.6-10.4); GFR AFRICAN-AMERICAN > 60; GFR NON-AFRICAN AMERICAN > 60
[2018-04-12] MEDS: Enoxaparin 40 mg Syringe SC SCH (10:24)
--- NOTE | 2018-04-12 10:55 | CP.PCM.PN ---
Subjective - Date & Time of Evaluation Date of Evaluation: 04/12/18 Time of Evaluation: 10:53 - Subjective Subjective: Viraj Green PGY-1 [facility] Progress Note Patient seen and examined at bedside. Patient offers no acute complaints. Patient urinating in mendoza without any urinary complaints. No acute events overnight as reported by nursing. Patient denies chest pain, sob, n/v, fevers, and chills. Objective - Vital Signs/Intake and Output Vital Signs (last 24 hours): Temp Pulse Resp BP Pulse Ox 98.4 F 86 22 131/71 95 04/12/18 07:33 04/12/18 07:33 04/12/18 07:33 04/12/18 10:22 04/12/18 07:33 Intake and Output: 04/12/18 04/12/18 06:59 18:59 Output Total 3400 Balance -3400 - Medications Medications: Current Medications Amlodipine Besylate (Norvasc) 5 mg PO DAILY [facility] Last Admin: 04/12/18 10:22 Dose: 5 mg Aspirin (Ecotrin) 81 mg PO DAILY [facility] Last Admin: 04/12/18 10:21 Dose: 81 mg Clonazepam (Klonopin) 0.5 mg PO TID [facility] Last Admin: 04/12/18 10:21 Dose: 0.5 mg Clopidogrel Bisulfate (Plavix) 75 mg PO DAILY [facility] Last Admin: 04/12/18 10:21 Dose: 75 mg Dextrose (Dextrose 50% Inj) 0 ml IV STAT PRN; Protocol PRN Reason: Hypoglycemia Protocol Dextrose (Glutose 15) 0 gm PO ONCE PRN; Protocol PRN Reason: Hypoglycemia Protocol Donepezil HCl (Aricept) 10 mg PO HS [facility] Last Admin: 04/11/18 21:34 Dose: 10 mg Enoxaparin Sodium (Lovenox) 40 mg SC DAILY [facility] Last Admin: 04/12/18 10:24 Dose: 40 mg Glucagon (Glucagen Diagnostic Kit) 0 mg IM STAT PRN; Protocol PRN Reason: Hypoglycemia Protocol Levothyroxine Sodium (Synthroid) 75 mcg PO DAILY@0630 [facility] Last Admin: 04/12/18 05:39 Dose: 75 mcg Metformin HCl (Glucophage) 500 mg PO BID [facility] Last Admin: 04/11/18 18:00 Dose: Not Given Metoprolol Tartrate (Lopressor) 25 mg PO BID [facility] Last Admin: 04/12/18 10:22 Dose: 25 mg Mirtazapine (Remeron) 7.5 mg PO [facility] Last Admin: 04/11/18 21:34 Dose: 7.5 mg Paroxetine HCl (Paxil) 20 mg PO DAILY [facility] Last Admin: 04/12/18 10:21 Dose: 20 mg Risperidone (Risperdal Tab) 0.5 mg PO [facility] Last Admin: 04/11/18 21:33 Dose: 0.5 mg Rosuvastatin Calcium (Crestor) 10 mg PO [facility] Last Admin: 04/11/18 21:34 Dose: 10 mg - Labs Labs: 04/11/18 08:11 04/12/18 08:05 PT 12.6 SECONDS (9.7-12.2) H 04/05/18 12:58 INR 1.2 04/05/18 12:58 APTT 31 SECONDS (21-34) 04/05/18 12:58 - Additional Findings Additional findings: - Head Exam Head Exam: ATRAUMATIC, NORMAL INSPECTION, NORMOCEPHALIC - Eye Exam Eye Exam: EOMI, Normal appearance, PERRL Pupil Exam: NORMAL ACCOMODATION, PERRL - ENT Exam ENT Exam: Mucous Membranes Moist, Normal Oropharynx - Respiratory Exam Respiratory Exam: Clear to Ausculation Bilateral, NORMAL BREATHING PATTERN - Cardiovascular Exam Cardiovascular Exam: REGULAR RHYTHM, +S1, +S2 - GI/Abdominal Exam GI & Abdominal Exam: Soft, Normal Bowel Sounds - Exam Exam: Mendoza attached with normal urine appearance - Extremities Exam Extremities Exam: Full ROM - Neurological Exam Neurological Exam: Alert, Awake, CN II-XII Intact, Normal Gait, Oriented x3 - Psychiatric Exam Psychiatric exam: Depressed - Skin Skin Exam: Dry, Intact, Normal Color Assessment and Plan - Assessment and Plan (Free Text) Assessment: Patient is a 78 y.o with PMH of Arthritis, Hypothyroidism, Dementia, HTN, DM, depression/Anxiety, former alcohol abuse and prostate cancer, who was brought him by ambulance with complaint of right-sided facial droop and drooling; being treated for CAP; nephro consulted for hyponatremia Plan: Hyponatremia (Resolved) S/P tolvaptan 1 x 15mg po Na-134 today Gdca=071; Darcie= 48 after tolvaptan administration likely SIADH component Hypertension BP controlled; continue to monitor Continue Norvasc 5mg po daily Continue Metoprolol 25 po bid As tolvaptan is an expensive medication; Recommend Lasix 20 mg q 48hrs (1x every 2 days) and salt tablets tid; F/U Dr. Mandel outpatient 4 weeks Medical management discussed with dent remover, Dr. Mandel
--- NOTE | 2018-04-12 11:25 | PCM.PYCHPN ---
Psychiatric Progress Note - Psychiatric Progress Note Patient seen today, length of contact: 15 min Patient Chief Complaint: "OK" Problems Identified/Issues Discussed: He is seen, chart reviewed Much better today Not suicidal, not as depressed, pleasant and smiling Support given Dementia-related sxs continue No AVH reported No side-effects Medication Change: No Medical Record Reviewed: Yes Mental Status Examination - Cognitive Function Orientation: Person Memory: Impaired Attention: Poor Concentration: Poor Association: WNL Fund of Knowledge: Poor - Mood Mood: Depressed - Affect Affect: Blunted - Speech Speech: Appropriate - Formal Thought Process Formal Thought Process: Perservation - Suicidal Ideation Suicidal Ideation: No - Homicidal Ideation Homicidal Ideation: No Goal/Treatment Plan - Goal/Treatment Plan Need for Continued Stay: Other (medical ) Progress Toward Problem(s) and Goals/Treatment Plan: Clonazepam continues Mirtazapine Risperidone All other medications as needed. All risks, benefits and alternatives of the meds discussed [place]
--- NOTE | 2018-04-12 12:20 | RAD ---
Date of service: 04/12/2018 HISTORY: f/u infiltrates; compare vs 04/05 CXR COMPARISON: Chest radiograph dated 04/05/2018. FINDINGS: LUNGS: Previously described patchy opacities not appreciated on the current exam. PLEURA: No significant pleural effusion identified, no pneumothorax apparent. CARDIOVASCULAR: Atherosclerotic aortic calcifications. Cardiomediastinal silhouette stably prominent. OSSEOUS STRUCTURES: Unchanged. VISUALIZED UPPER ABDOMEN: Normal. OTHER FINDINGS: None. IMPRESSION: Previously described patchy opacity is no longer appreciated on the current exam.
[2018-04-12 16:15] VITALS: BP 126/73; PULSE 79; RESP 20; TEMP 97.9; O2SAT 97
--- NOTE | 2018-05-03 13:18 | DS ---
Copied To: Tamela Salter MD Attending MD: Tamela Salter MD The patient came to the hospital with a chief complaint of weakness, fatigue, tiredness, shortness of breath. The patient was found to have pneumonia. The patient has psych history. Poor appetite. Supportive care. Transferred to subacute rehab. Tamela Salter MD
== END 2018-04-12 18:30 | DRG 194 ==
LOC: C.ER 12:23 → C.9E 15:25 → C.6T 16:00
PROVIDERS: ADMIT Internal Medicine Pulmonary Disease; ATTEND Internal Medicine Pulmonary Disease
DX: J18.9 Pneumonia, unspecified organism (principal); F32.2 Major depressive disorder, single episode, severe without psychotic features; F03.90 Unspecified dementia, unspecified severity, without behavioral disturbance, psychotic disturbance, mood disturbance, and anxiety; H40.9 Unspecified glaucoma; F51.5 Nightmare disorder; E86.9 Volume depletion, unspecified; E11.9 Type 2 diabetes mellitus without complications; E03.9 Hypothyroidism, unspecified; R13.10 Dysphagia, unspecified; R29.810 Facial weakness; I10 Essential (primary) hypertension

== ENCOUNTER 2018-06-19 07:34 | Day surgery (SDC) | payer MEDICARE ==
[2018-06-19] MEDS ORDERED: Lactated Ringer's 1,000 ML IV ONE ×2 (09:25)
--- NOTE | 2018-06-19 09:25 | CP.SDSHP ---
Same Day Surgery H & P - History Proposed Procedure: COLONSCOPY Pre-Op Diagnosis: SEE NOTES - Previous Medical/Surgical History Cardiac: Hypertension, ASHD/CAD Pulmonary: Asthma Endocrine/Metabolic: Thyroid Disease, Diabetes, Other Neuro: Other - Allergies Allergies: Allergies No Known Allergies Allergy (Unverified 06/18/18 11:14) - Physical Exam General Appearance: N Vital Signs: Vital Signs 06/19/18 07:55 Temperature 96.8 F L Pulse Rate 75 Respiratory 16 Rate Blood Pressure 125/58 L O2 Sat by Pulse 98 Oximetry Mental Status: Alert & Oriented x3 Neuro: Other Heart: Other Lungs: Other GI: Other - {Optional Preform as Required} Breast: WNL Abdomen: Other Rectal: Other Integument: WNL : WNL Ortho: WNL ENT: WNL - Impression Pt. Evaluated Today:Candidate for Anesthesia & Procedure: Yes - Date & Time Time: 09:24 Short Stay Discharge - Short Stay Discharge Admitting Diagnosis/Reason for Visit: DIARRHEA Disposition: HOME/ ROUTINE
[2018-06-19] MEDS ORDERED: Propofol 10 mg/ml Inj (20 ML) ONE (09:27)
[2018-06-19] MEDS ORDERED: Belladonna-Phenobarbital PO ONE (10:00)
[2018-06-19 10:21] VITALS: TEMP 96.9; O2SAT 100
[2018-06-19 11:45] VITALS: BP 159/68; PULSE 75; RESP 16
== END 2018-06-19 11:35 | disposition home or self-care (01) ==
LOC: C.ENDO 07:34
PROVIDERS: ATTEND Specialist
DX: R19.7 Diarrhea, unspecified (principal); K57.30 Diverticulosis of large intestine without perforation or abscess without bleeding; K64.8 Other hemorrhoids; I10 Essential (primary) hypertension; E11.9 Type 2 diabetes mellitus without complications
CPT/HCPCS: 45380; 82948; 87045; 87177; 87209; 87230; 88305; J2001; J2704; J7120

== ENCOUNTER 2018-06-26 07:52 | Day surgery (SDC) | payer MEDICARE, MEDICAID ==
--- NOTE | 2018-06-26 08:45 | CP.SDSHP ---
Same Day Surgery H & P - History Proposed Procedure: EGD Pre-Op Diagnosis: SEE NOTES - Previous Medical/Surgical History Cardiac: Hypertension Pulmonary: Asthma, Bronchitis Endocrine/Metabolic: Thyroid Disease, Diabetes Neuro: Other Misc: Other Pain: 4.Moderate Pain Previous Surgical History: HAS ONLY AAA - Allergies Allergies: Allergies No Known Allergies Allergy (Unverified 06/26/18 08:13) - Physical Exam General Appearance: N Vital Signs: Vital Signs 06/26/18 08:10 Temperature 96.9 F L Pulse Rate 68 Respiratory 20 Rate Blood Pressure 128/63 O2 Sat by Pulse 99 Oximetry Neuro: WNL Heart: Other Lungs: WNL GI: Other - {Optional Preform as Required} Breast: WNL Abdomen: Other Rectal: Other Integument: WNL : WNL Ortho: Other ENT: WNL - Impression Pt. Evaluated Today:Candidate for Anesthesia & Procedure: Yes - Date & Time Time: 08:45 Short Stay Discharge - Short Stay Discharge Admitting Diagnosis/Reason for Visit: MELENA Disposition: HOME/ ROUTINE
[2018-06-26] MEDS ORDERED: Pantoprazole 40 mg EC Tab PO STA (08:46)
[2018-06-26 10:54] VITALS: TEMP 971
[2018-06-26 11:00] VITALS: BP 162/81; PULSE 75; RESP 20; O2SAT 100
== END 2018-06-26 10:30 | disposition home or self-care (01) ==
LOC: C.ENDO 07:52
PROVIDERS: ATTEND Specialist
DX: K21.0 Gastro-esophageal reflux disease with esophagitis (principal); K44.9 Diaphragmatic hernia without obstruction or gangrene; E11.9 Type 2 diabetes mellitus without complications; I10 Essential (primary) hypertension; J45.909 Unspecified asthma, uncomplicated; K25.7 Chronic gastric ulcer without hemorrhage or perforation

== ENCOUNTER 2018-12-03 08:44 | Inpatient (IN) | payer MEDICARE, OTHER ==
[2018-12-03 08:45] VITALS: BMI 26.2
--- NOTE | 2018-12-03 09:12 | C.PDOC ---
History Of Present Illness 78 year old male with multiple medical problems including hypertension and dementia was referred to the ED with hematuria which he was noted to have for the last [address] Topete (urology) was contacted for the patient. Patient is nonverbal, bed-bound, and the patient's master control engineer has little information about him. Time Seen by Provider: 12/03/18 09:08 Chief Complaint (Nursing): Medical Clearance History Per: Patient History/Exam Limitations: clinical condition Onset/Duration Of Symptoms: Days (3) Current Symptoms Are (Timing): Still Present Past Medical History Reviewed: Historical Data, Nursing Documentation, Vital Signs Vital Signs: Last Vital Signs Temp 98.5 F 12/03/18 09:00 Pulse 66 12/03/18 09:00 Resp 18 12/03/18 09:00 BP 174/70 H 12/03/18 09:00 Pulse Ox 99 12/03/18 09:00 - Medical History PMH: Anxiety, Arthritis, Asthma, Dementia, Depression, HTN, Hypercholesterolemia, Hypothyroidism, Pneumonia, TIA Denies: Chronic Kidney Disease Surgical History: No Surg Hx Family History: States: No Known Family Hx - Social History Hx Alcohol Use: Yes Hx Substance Use: No Review Of Systems Review Of Systems: ROS cannot be obtained secondary to pt's inabilty to answer questions. Physical Exam - Physical Exam Appears: Non-toxic, Other (non-verbal, bed-bound) Skin: Warm, Dry, Pale Head: Atraumatic, Normacephalic Eye(s): bilateral: Normal Inspection, PERRL, EOMI Nose: Normal Oral Mucosa: Moist Neck: Normal, Supple Chest: Symmetrical, No Tenderness Cardiovascular: Rhythm Regular, No Murmur Respiratory: Normal Breath Sounds, No Rales, No Rhonchi, No Wheezing Gastrointestinal/Abdominal: Soft, No Tenderness, No Guarding, No Rebound Male Genital: Other (Exam performed by Dr. Topete) Neurological/Psych: No Oriented x3, No Normal Speech ED Course And Treatment - Laboratory Results Result Diagrams: 12/03/18 11:11 12/03/18 11:11 O2 Sat by Pulse Oximetry: 99 (RA) Pulse Ox Interpretation: Normal Medical Decision Making Medical Decision Making: The patient's exam was performed by Dr. Topete, who requests labs to be sent and CT scan with contrast. Patient to be re-evaluated. Plan: CT Abdomen and Pelvis with IV Contrast CMP CBC Urine Culture Urinalysis Disposition Discussed With Dr.: Shara Topete Counseled Patient/Family Regarding: Studies Performed, Diagnosis, Need For Followup - Disposition Disposition: HOSPITALIZED Disposition Time: 13:41 Condition: FAIR - Clinical Impression Clinical Impression: Dementia, Hematuria, Cystitis - Scribe Statement The provider has reviewed the documentation as recorded by the Scribe (Sinan Drew) Provider Attestation: All medical record entries made by the Scribe were at my direction and personally dictated by me. I have reviewed the chart and agree that the record accurately reflects my personal performance of the history, physical exam, medical decision making, and the department course for this patient. I have also personally directed, reviewed, and agree with the discharge instructions and disposition. Decision To Admit - Pt Status Changed To: Hospital Disposition Of: Observation - . Bed Request Type: Regular Admitting Physician: Tamela Salter Patient Diagnosis: Dementia, Hematuria, Cystitis
[2018-12-03 11:38] LABS: BASO % 0.4 % (0.0-2.0); EOS # 0.4 K/uL (0.0-0.7); EOS % 4.1 % (0.0-4.0); LYMPH # 2.6 K/uL (1.0-4.3); LYMPH % 29.1 % (20.0-40.0); MEAN CORPUSCULAR HEMOGLOBIN 30.8 pg (27.0-31.0); MEAN CORPUSCULAR HGB CONC 32.5 g/dL (33.0-37.0); MONO # 0.6 K/uL (0.0-0.8); NEUT # 5.4 K/uL (1.8-7.0); NEUT % 59.4 % (50.0-75.0); RBC 2.95 Mil/uL (4.40-5.90); RED CELL DISTRIBUTION WIDTH 14.5 % (11.5-14.5)
[2018-12-03 11:39] LABS: HEMOGLOBIN 9.1 g/dL (12.0-18.0)
[2018-12-03 11:40] LABS: ALB/GLOB RATIO 1.2 (1.0-2.1); ALBUMIN 3.6 g/dL (3.5-5.0); ALT/SGPT 58 U/L (21-72); AST/SGOT 61 U/L (17-59); BLOOD UREA NITROGEN 26 mg/dL (9-20); CALCIUM 9.1 mg/dl (8.6-10.4); GFR NON-AFRICAN AMERICAN > 60
[2018-12-03 11:41] LABS: URINE BILIRUBIN NEGATIVE (NEGATIVE); URINE BLOOD 3+ (NEGATIVE); URINE CLARITY Hazy (Clear); URINE COLOR Yellow (YELLOW); URINE GLUCOSE (UA) NORMAL (Normal); URINE LEUKOCYTE ESTERASE NEG Leu/uL (Negative); URINE PROTEIN 2+ mg/dL (NEGATIVE); URINE UROBILINOGEN NORMAL mg/dL (0.2-1.0)
[2018-12-03] MEDS ORDERED: Iodixanol 320 MG/ML 100 ML BOTTLE IV ONE (11:57)
--- NOTE | 2018-12-03 13:38 | CT ---
Date of service: 12/03/2018 PROCEDURE: CT Abdomen and Pelvis with contrast HISTORY: abd pain COMPARISON: None available. TECHNIQUE: Contrast dose: 100 mL Visipaque 320 IV Radiation dose: Total exam DLP = 402.07 mGy-cm. This CT exam was performed using one or more of the following dose reduction techniques: Automated exposure control, adjustment of the mA and/or kV according to patient size, and/or use of iterative reconstruction technique. FINDINGS: LOWER THORAX: Mild bibasilar atelectasis. Trace effusions. No visible pneumothorax. LIVER: Unremarkable. GALLBLADDER AND BILE DUCTS: Probable sludge within the gallbladder. PANCREAS: Atrophy. SPLEEN: Unremarkable. ADRENALS: Unremarkable. KIDNEYS AND URETERS: The kidneys enhance symmetrically. No hydronephrosis or obstructing calculus identified. VASCULATURE: No aortic aneurysm. Atherosclerotic calcifications of the aorta and branches. BOWEL: Stomach is nondistended. Percutaneous gastrostomy tube within the stomach. Lack of oral contrast limits evaluation for bowel pathology. Bowel loops appear within normal limits of caliber without evidence of obstruction. APPENDIX: The appendix appears minimally dilated measuring approximately 7 mm in diameter. No significant periappendiceal inflammatory changes are evident. PERITONEUM: No significant free fluid. No definite free air. LYMPH NODES: No bulky adenopathy identified. BLADDER: Ferguson catheter within the urinary bladder. Urinary bladder appears thick walled. Mild associated inflammatory changes. REPRODUCTIVE: Prostate radiation seeds. BONES: Osseous demineralization. Degenerative changes. 5 mm sclerotic focus at L2. OTHER FINDINGS: None. IMPRESSION: Ferguson catheter within the urinary bladder. Urinary bladder appears thick walled. Mild associated inflammatory changes. Findings appear consistent with cystitis. Recommend correlation with urinalysis. The appendix appears minimally dilated measuring approximately 7 mm in diameter. No significant periappendiceal inflammatory changes are evident. Correlate clinically. Suspect sludge within the gallbladder. Percutaneous gastrostomy tube. Prostate radiation seeds. Mild bibasilar atelectasis. Trace effusions. Additional incidental findings as above. Case discussed with Dr. Mcneill on 11/05/18 at 1:31 p.m.
--- NOTE | 2018-12-03 14:10 | CP.PCM.PN ---
Subjective - Date & Time of Evaluation Date of Evaluation: 12/03/18 Time of Evaluation: 14:00 - Subjective Subjective: Patient is a 78 year old male with PMHx of Arthritis, Hypothyroidism, Dementia, HTN, DM, depression/Anxiety, former alcohol abuse and prostate cancer, indwelling mendoza catheter, and who presents today from [place] for multiple days of hematuria. Patient was found to have Klebsiella and Pseudomonas in his urine on 11/19/18 and was treated with Cipro 500mg po q12h. Patient is a poor historian and says he feels fine. Patient says he does not know why he is in the hospital. Patient has no complaints. PMHx compiled from prior chart review and information brought from residential. PMHx: Arthritis, Hypothyroidism, Dementia, HTN, DM, depression/Anxiety, former alcohol abuse and prostate cancer PSHx: radioactive seeds for prostate cancer, Right glaucoma repair, percutaneous gastrostomy tube FHx: Father ( Prostate Ca, ) - Mother (Throat Ca. ) - Elder sister and brother ( in their 80s and 90s due to complications of Dementia) - Elder brother ( in his 80s, possibly due to [place]) - Son, at age of 44 due to complications of liver/lung Ca Allergies: NKDA Social Hx: Admits to former alcohol abuse but denies current or former history of tobacco or illicit drug use Objective - Vital Signs/Intake and Output Vital Signs (last 24 hours): Temp Pulse Resp BP Pulse Ox 98.5 F 66 18 174/70 H 99 12/03/18 09:00 12/03/18 09:00 12/03/18 09:00 12/03/18 09:00 12/03/18 13:42 - Medications Medications: Current Medications Ceftriaxone Sodium 1 gm/ (Sodium Chloride) 100 mls @ 100 mls/hr IVPB STAT STA; Protocol Stop: 12/03/18 14:44 - Labs Labs: 12/03/18 11:11 12/03/18 11:11 - Constitutional Appears: Non-toxic, No Acute Distress - Head Exam Head Exam: ATRAUMATIC, NORMAL INSPECTION, NORMOCEPHALIC - Respiratory Exam Respiratory Exam: Clear to Ausculation Bilateral, NORMAL BREATHING PATTERN - Cardiovascular Exam Cardiovascular Exam: REGULAR RHYTHM, RRR, +S1, +S2 - GI/Abdominal Exam GI & Abdominal Exam: Soft. absent: Tenderness Additional comments: percutaneous gastrostomy tube - Exam Additional comments: indwelling mendoza catheter - Extremities Exam Extremities Exam: Normal Inspection. absent: Pedal Edema, Tenderness - Neurological Exam Neurological Exam: Alert, Awake, Oriented x3 - Psychiatric Exam Psychiatric exam: Normal Affect, Normal Mood - Skin Skin Exam: Intact, Normal Color, Warm Assessment and Plan - Assessment and Plan (Free Text) Assessment: Hematuria CT Abd Pelvis with IV contrast (12/03/18): mendoza catheter within the urinary bladder. urinary bladder appears thick walled. mild associated inflammatory changes. findings appear consistent with cystitis. appendix appears minimally dilated measuring approximately 7mm in diameter. no significant periappendiceal inflammatory changes are evident. suspect sludge within the gallbladder. percutaneous gastrostomy tube. prostate radiation seeds. Mild bibasilar atelectasis. Trace effusions. urology consulted, Dr. Shara Topete f/u urine culture NPO for cystoscopy tomorrow Rocephin 1 gm given in ED NS at 75 cc/hr Dr. Mcmullen, ID, consulted- help appreciated COPD Albuterol 2 puff q6h ptn DMII accuchecks q6h ISS q6h hypoglycemia protocol f/u HgA1C Hypothyroidism Synthroid 75mcg po daily f/u TSH, free T4 HTN Metoprolol 25mg po BID Hydralazine 50mg po TID Depression Remeron 7.5mg po HS Paxil 20mg po daily Risperdal 3mg po HS Dementia Aricept 10mg po HS HLD Crestor 10mg po HS f/u lipid panel Glaucoma Alphagan .2% opht Constipation Milk of Magnesia 30mg po daily prn Colace 100mg po HS Prophylaxis SCDs Discussed with Dr. Salter
[2018-12-03] MEDS ORDERED: Alum-Mag Hydrox-Simethicone Susp (30 mL) PO PRN (14:47)
[2018-12-03] MEDS ORDERED: Magnesium Hydroxide Susp 30 ml UD PO PRN (14:47)
[2018-12-03] MEDS ORDERED: Albuterol HFA 90 mcg/actuation (8 g) IH PRN (14:47)
[2018-12-03] MEDS ORDERED: Dextrose 50% SYRINGE Inj (50 ml) IV PRN (15:25)
[2018-12-03] MEDS ORDERED: Glucagon Recombinant 1 mg Inj IM PRN (15:25)
[2018-12-03] MEDS: (Novolin R) Insulin Human Regular 100 units/ml vial SC SCH ×2 (16:30→22:07)
[2018-12-03] MEDS ORDERED: Sodium Chloride 0.9% 1,000 ML IV SCH (16:45)
[2018-12-03] MEDS: Dextrose 5%/0.45% NS 1,000 ML IV SCH (20:12)
[2018-12-03] MEDS: Brimonidine 0.2% Opth Sol (5ml) OS SCH (20:17)
--- NOTE | 2018-12-04 | CP.PCM.CON ---
History of Present Illness - History of Present Illness History of Present Illness: IMP: URINARY RETENTION UTI HEMATURIA DEMENTIA HX OF SCHIZOPHRENIA FULL NOTE TBD YS Past Patient History - Past Medical History & Family History Past Medical History?: Yes - Past Social History Smoking Status: Never Smoked - CARDIAC Hx Hypercholesterolemia: Yes Hx Hypertension: Yes - PULMONARY Hx Asthma: Yes Hx Pneumonia: Yes - NEUROLOGICAL Hx Dementia: Yes Hx Transient Ischemic Attacks (TIA): Yes - HEENT Hx HEENT Problems: Yes Hx Glaucoma: Yes Other/Comment: APHSIA - RENAL Hx Chronic Kidney Disease: No - ENDOCRINE/METABOLIC Hx Hypothyroidism: Yes - HEMATOLOGICAL/ONCOLOGICAL Hx Blood Disorders: Yes Hx Cancer: Yes (PROSTATE) - INTEGUMENTARY Hx Dermatological Problems: No - MUSCULOSKELETAL/RHEUMATOLOGICAL Hx Arthritis: Yes - GASTROINTESTINAL Hx Gastrointestinal Disorders: Yes - GENITOURINARY/GYNECOLOGICAL Hx Genitourinary Disorders: Yes Hx Prostate Cancer: Yes - PSYCHIATRIC Hx Anxiety: Yes Hx Depression: Yes Hx Substance Use: No - SURGICAL HISTORY Hx Surgeries: Yes Hx Eye Surgery: Yes (RIGHT EYE ) Other/Comment: PROSTATE SEEDING (88 SEEDS IMPLANTED) - ANESTHESIA Hx Anesthesia: Yes Hx Anesthesia Reactions: No Hx Malignant Hyperthermia: No Meds Allergies/Adverse Reactions: Allergies Allergy/AdvReac Type Severity Reaction Status Date / Time No Known Allergies Allergy Unverified 06/26/18 08:13 - Medications Medications: Current Medications Al Hydrox/Mg Hydrox/Simethicone (Maalox Plus 30 Ml) 30 ml PO Q4 PRN PRN Reason: Nausea/Vomiting Albuterol (Ventolin Hfa 90 Mcg/Actuation (8 G)) 2 puff IH Q6 PRN PRN Reason: Wheezing Brimonidine Tartrate (Alphagan 0.2% Opht) 0 ml OS BID [facility] Last Admin: 12/03/18 20:17 Dose: 1 drop Dextrose (Dextrose 50% Inj) 0 ml IV STAT PRN; Protocol PRN Reason: Hypoglycemia Protocol Dextrose (Glutose 15) 0 gm PO ONCE PRN; Protocol PRN Reason: Hypoglycemia Protocol Docusate Sodium (Colace) 100 mg PO HS [facility] Last Admin: 12/03/18 22:06 Dose: 100 mg Donepezil HCl (Aricept) 10 mg PO HS [facility] Last Admin: 12/03/18 22:06 Dose: 10 mg Glucagon (Glucagen Diagnostic Kit) 0 mg IM STAT PRN; Protocol PRN Reason: Hypoglycemia Protocol Hydralazine HCl (Apresoline) 50 mg PO TID [facility] Last Admin: 12/03/18 20:10 Dose: 50 mg Dextrose (Dextrose 5% In Water 1000 Ml) 1,000 mls @ 0 mls/hr IV .Q0M PRN; Protocol PRN Reason: Hypoglycemia Protocol Sodium Chloride (Sodium Chloride 0.9%) 1,000 mls @ 75 mls/hr IV .[id number] DEX Dextrose/Sodium Chloride (Dextrose 5%/0.45% Ns 1000 Ml) 1,000 mls @ 80 mls/hr IV .[id number] [facility] Last Admin: 12/03/18 20:12 Dose: 80 mls/hr Cefepime HCl 1 gm/ Dextrose 50 mls @ 100 mls/hr IVPB Q12H [facility]; Protocol Insulin Human Regular (Novolin R) 0 unit SC Q6H [facility]; Protocol Last Admin: 12/03/18 22:07 Dose: Not Given Levothyroxine Sodium (Synthroid) 75 mcg PO 0630 [facility] Magnesium Hydroxide (Milk Of Magnesia) 30 ml PO DAILY PRN PRN Reason: Constipation Metoprolol Tartrate (Lopressor) 25 mg PO BID [facility] Last Admin: 12/03/18 20:10 Dose: 25 mg Mirtazapine (Remeron) 7.5 mg PO [facility] Last Admin: 12/03/18 22:06 Dose: 7.5 mg Paroxetine HCl (Paxil) 20 mg PO DAILY [facility] Risperidone (Risperdal Tab) 3 mg PO HS [facility] Last Admin: 12/03/18 22:06 Dose: 3 mg Rosuvastatin Calcium (Crestor) 10 mg PO HS [facility] Last Admin: 12/03/18 22:06 Dose: 10 mg Results - Vital Signs Recent Vital Signs: Last Vital Signs Temp 98.6 F 12/03/18 17:40 Pulse 69 12/03/18 17:40 Resp 20 12/03/18 17:40 BP 168/89 H 12/03/18 20:10 Pulse Ox 96 12/03/18 17:40 - Labs Result Diagrams: 12/03/18 11:11 12/03/18 11:11 Labs: Laboratory Results - last 24 hr 12/03/18 12/03/18 12/03/18 11:11 11:11 11:11 WBC 9.0 RBC 2.95 L Hgb 9.1 L D Hct 28.0 L MCV 95.0 H D MCH 30.8 MCHC 32.5 L RDW 14.5 Plt Count 188 MPV 10.0 Neut % (Auto) 59.4 Lymph % (Auto) 29.1 [place] % (Auto) 7.0 Eos % (Auto) 4.1 H Baso % (Auto) 0.4 Neut # (Auto) 5.4 Lymph # (Auto) 2.6 [place] # (Auto) 0.6 Eos # (Auto) 0.4 Baso # (Auto) 0.0 Sodium 136 Potassium 4.2 Chloride 99 Carbon Dioxide 33 H Anion Gap 9 L BUN 26 H Creatinine 1.1 Est GFR ( Amer) > 60 Est GFR (Non-Af Amer) > 60 POC Glucose (mg/dL) Random Glucose 90 D Calcium 9.1 Total Bilirubin 0.4 AST 61 H D ALT 58 Alkaline Phosphatase 96 Total Protein 6.7 Albumin 3.6 Globulin 3.0 Albumin/Globulin Ratio 1.2 Urine Color Yellow Urine Clarity Hazy Urine pH 8.0 Ur Specific [place] 1.011 Urine Protein 2+ H Urine Glucose (UA) Normal Urine Ketones Negative Urine Blood 3+ H Urine Nitrate Negative Urine Bilirubin Negative Urine Urobilinogen Normal Ur Leukocyte Esterase Neg Urine WBC (Auto) 1 Urine RBC (Auto) 2735 H 12/03/18 12/03/18 16:42 21:10 WBC RBC Hgb Hct MCV MCH MCHC RDW Plt Count MPV Neut % (Auto) Lymph % (Auto) [place] % (Auto) Eos % (Auto) Baso % (Auto) Neut # (Auto) Lymph # (Auto) [place] # (Auto) Eos # (Auto) Baso # (Auto) Sodium Potassium Chloride Carbon Dioxide Anion Gap BUN Creatinine Est GFR ( Amer) Est GFR (Non-Af Amer) POC Glucose (mg/dL) 89 103 Random Glucose Calcium Total Bilirubin AST ALT Alkaline Phosphatase Total Protein Albumin Globulin Albumin/Globulin Ratio Urine Color Urine Clarity Urine pH Ur Specific [place] Urine Protein Urine Glucose (UA) Urine Ketones Urine Blood Urine Nitrate Urine Bilirubin Urine Urobilinogen Ur Leukocyte Esterase Urine WBC (Auto) Urine RBC (Auto) Assessment & Plan - Date & Time Date: 12/03/18 Time: 11:00
[2018-12-04] MEDS: Levothyroxine 75 MCG TAB PO SCH (05:55)
--- NOTE | 2018-12-04 07:10 | CP.PCM.PN ---
Subjective - Date & Time of Evaluation Date of Evaluation: 12/04/18 Time of Evaluation: 07:10 - Subjective Subjective: Medicine Progress Note - Dr Salter's service Patient seen and examined at bedside. Per nursing no acute events overnight. He is NPO for cystoscopy this morning. Objective - Vital Signs/Intake and Output Vital Signs (last 24 hours): Temp Pulse Resp BP Pulse Ox 97.8 F 71 20 137/61 96 12/04/18 05:00 12/04/18 00:00 12/04/18 00:00 12/04/18 00:00 12/04/18 01:00 Intake and Output: 12/04/18 12/04/18 06:59 18:59 Intake Total 700 Output Total 950 Balance -250 - Medications Medications: Current Medications Al Hydrox/Mg Hydrox/Simethicone (Maalox Plus 30 Ml) 30 ml PO Q4 PRN PRN Reason: Nausea/Vomiting Albuterol (Ventolin Hfa 90 Mcg/Actuation (8 G)) 2 puff IH Q6 PRN PRN Reason: Wheezing Brimonidine Tartrate (Alphagan 0.2% Opht) 0 ml OS BID [facility] Last Admin: 12/03/18 20:17 Dose: 1 drop Dextrose (Dextrose 50% Inj) 0 ml IV STAT PRN; Protocol PRN Reason: Hypoglycemia Protocol Dextrose (Glutose 15) 0 gm PO ONCE PRN; Protocol PRN Reason: Hypoglycemia Protocol Docusate Sodium (Colace) 100 mg PO HS [facility] Last Admin: 12/03/18 22:06 Dose: 100 mg Donepezil HCl (Aricept) 10 mg PO HS [facility] Last Admin: 12/03/18 22:06 Dose: 10 mg Glucagon (Glucagen Diagnostic Kit) 0 mg IM STAT PRN; Protocol PRN Reason: Hypoglycemia Protocol Hydralazine HCl (Apresoline) 50 mg PO TID [facility] Last Admin: 12/03/18 20:10 Dose: 50 mg Dextrose (Dextrose 5% In Water 1000 Ml) 1,000 mls @ 0 mls/hr IV .Q0M PRN; Protocol PRN Reason: Hypoglycemia Protocol Sodium Chloride (Sodium Chloride 0.9%) 1,000 mls @ 75 mls/hr IV .[id number] [facility] Dextrose/Sodium Chloride (Dextrose 5%/0.45% Ns 1000 Ml) 1,000 mls @ 80 mls/hr IV .[id number] [facility] Last Admin: 12/03/18 20:12 Dose: 80 mls/hr Cefepime HCl 1 gm/ Dextrose 50 mls @ 100 mls/hr IVPB Q12H [facility]; Protocol Last Admin: 12/04/18 00:00 Dose: 100 mls/hr Insulin Human Regular (Novolin R) 0 unit SC Q6H [facility]; Protocol Last Admin: 12/03/18 22:07 Dose: Not Given Levothyroxine Sodium (Synthroid) 75 mcg PO 0630 [facility] Last Admin: 12/04/18 05:55 Dose: 75 mcg Magnesium Hydroxide (Milk Of Magnesia) 30 ml PO DAILY PRN PRN Reason: Constipation Metoprolol Tartrate (Lopressor) 25 mg PO BID [facility] Last Admin: 12/03/18 20:10 Dose: 25 mg Mirtazapine (Remeron) 7.5 mg PO [facility] Last Admin: 12/03/18 22:06 Dose: 7.5 mg Paroxetine HCl (Paxil) 20 mg PO DAILY [facility] Risperidone (Risperdal Tab) 3 mg PO [facility] Last Admin: 12/03/18 22:06 Dose: 3 mg Rosuvastatin Calcium (Crestor) 10 mg PO [facility] Last Admin: 12/03/18 22:06 Dose: 10 mg - Labs Labs: 12/03/18 11:11 12/03/18 11:11 - Additional Findings Additional findings: - Constitutional Appears: Non-toxic, No Acute Distress - Head Exam Head Exam: ATRAUMATIC, NORMAL INSPECTION, NORMOCEPHALIC - Respiratory Exam Respiratory Exam: Clear to Ausculation Bilateral, NORMAL BREATHING PATTERN - Cardiovascular Exam Cardiovascular Exam: REGULAR RHYTHM, RRR, +S1, +S2 - GI/Abdominal Exam GI & Abdominal Exam: Soft. absent: Tenderness Additional comments: percutaneous gastrostomy tube - Exam Additional comments: indwelling mendoza catheter - Extremities Exam Extremities Exam: Normal Inspection. absent: Pedal Edema, Tenderness - Neurological Exam Neurological Exam: Alert, Awake, Oriented x3 - Psychiatric Exam Psychiatric exam: Normal Affect, Normal Mood - Skin Skin Exam: Intact, Normal Color, Warm Assessment and Plan - Assessment and Plan (Free Text) Assessment: Hematuria -Stable, afebrile -Patient is NPO for cystoscopy this morning -CT Abd Pelvis with IV contrast (12/03/18): mendoza catheter within the urinary bladder. urinary bladder appears thick walled. mild associated inflammatory changes. findings appear consistent with cystitis. appendix appears minimally dilated measuring approximately 7mm in diameter. no significant periappendiceal inflammatory changes are evident. suspect sludge within the gallbladder. percut aneous gastrostomy tube. prostate radiation seeds. Mild bibasilar atelectasis. Trace effusions. ( see full report ) -Urology consulted, Dr. Shara Topete, help appreciated -F/U urine culture -Rocephin 1 gm given in ED -NS at 75 cc/hr -Dr. Mcmullen, ID, consulted- help appreciated COPD -Albuterol 2 puff q6h ptn DMII (controlled) -Insulin sliding scale and accuchecks ACHS -hypoglycemia protocol -HgA1C 5.7 Hypothyroidism -Synthroid 75mcg po daily -TSH 14.60, will repeat tomorrow HTN -Metoprolol 25mg po BID -Hydralazine 50mg po TID Depression -Remeron 7.5mg po HS -Paxil 20mg po daily -Risperdal 3mg po HS Dementia -Aricept 10mg po HS HLD (controlled) -Crestor 10mg po HS Glaucoma Alphagan .2% opht Constipation Milk of Magnesia 30mg po daily prn Colace 100mg po HS Prophylaxis SCDs Plan discussed with Dr. Joie Greer DO PGY-2
[2018-12-04 07:58] LABS: BASO % 0.5 % (0.0-2.0); EOS # 0.3 K/uL (0.0-0.7); EOS % 4.6 % (0.0-4.0); HEMOGLOBIN 8.4 g/dL (12.0-18.0); LYMPH # 2.6 K/uL (1.0-4.3); LYMPH % 33.8 % (20.0-40.0); MEAN CELL VOLUME 93.6 fL (80.0-94.0); MEAN CORPUSCULAR HEMOGLOBIN 31.5 pg (27.0-31.0); MEAN CORPUSCULAR HGB CONC 33.7 g/dL (33.0-37.0); MONO # 0.6 K/uL (0.0-0.8); MONO % 7.5 % (0.0-10.0); NEUT # 4.1 K/uL (1.8-7.0); NEUT % 53.6 % (50.0-75.0); RBC 2.66 Mil/uL (4.40-5.90); RED CELL DISTRIBUTION WIDTH 14.3 % (11.5-14.5); WHITE BLOOD COUNT 7.6 K/uL (4.8-10.8)
[2018-12-04 08:00] LABS: INR 1.2; PROTHROMBIN TIME 12.9 SECONDS (9.7-12.2)
[2018-12-04 08:21] LABS: LDL CHOLESTEROL 77 mg/dL (0-129)
[2018-12-04 08:29] LABS: ALB/GLOB RATIO 1.1 (1.0-2.1); ALBUMIN 3.3 g/dL (3.5-5.0); ALT/SGPT 49 U/L (21-72); AST/SGOT 44 U/L (17-59); BLOOD UREA NITROGEN 19 mg/dL (9-20); CALCIUM 9.2 mg/dl (8.6-10.4); GFR NON-AFRICAN AMERICAN > 60; HDL CHOLESTEROL 43 mg/dL (30-70)
[2018-12-04] MEDS: (Novolin R) Insulin Human Regular 100 units/ml vial SC SCH ×3 (08:49→22:00)
[2018-12-04] MEDS: Dextrose 5%/0.45% NS 1,000 ML IV SCH ×2 (08:54→21:54)
[2018-12-04] MEDS ORDERED: Lidocaine 2% Jelly (Uro-Jet) ONE (09:17)
[2018-12-04] MEDS ORDERED: Iohexol 240 (50 ml) ONE (09:17)
[2018-12-04] MEDS ORDERED: Etomidate 20 mg/10ml Inj IV ONE (09:21)
[2018-12-04] MEDS ORDERED: ePHEDrine 50 mg/ml Inj ONE (09:33)
[2018-12-04] MEDS: Brimonidine 0.2% Opth Sol (5ml) OS SCH ×2 (10:01→17:44)
[2018-12-04] MEDS ORDERED: Naloxone 0.4 mg/ml Inj (Adult) ONE (10:20)
--- NOTE | 2018-12-04 10:27 | PCM.SURG1 ---
Surgeon's Initial Post Op Note - Surgeon's Notes Surgeon: Daya Topete Mushroom Laborer: len Type of Anesthesia: General Endo Pre-Operative Diagnosis: Hermaturia. Retention. Hx of prostate ca Operative Findings: same Post-Operative Diagnosis: same Operation Performed: cysto. Evacuation of clots. TURP Specimen/Specimens Removed: urine. prostate. seeds Estimated Blood Loss: EBL {In ML}: 30 Blood Products Given: N/A Post-Op Condition: Good Date of Surgery/Procedure: 12/04/18 Time of Surgery/Procedure: 10:26
[2018-12-04] MEDS ORDERED: HYDROmorphone 0.5 mg/0.5 ml ISec IVP PRN (10:37)
--- NOTE | 2018-12-04 12:13 | CP.PCM.CON ---
History of Present Illness - History of Present Illness History of Present Illness: examined at bedside chart reviewed orders signed 78 year old male with multiple medical problems including hypertension and dementia was referred to the ED with hematuria which he was noted to have for the last [address] Topete (urology) was contacted for the patient. Patient is nonverbal, bed-bound, Seen after OR for TURP in NAD IV antibiotics ordered - Medical History PMH: Anxiety, Arthritis, Asthma, Dementia, Depression, HTN, Hypercholesterolemia, Hypothyroidism, Pneumonia, TIA Denies: Chronic Kidney Disease Surgical History: No Surg Hx Family History: States: No Known Family Hx Review of Systems - Review of Systems Systems not reviewed;Unavailable: Altered Mental Status All systems: reviewed and no additional remarkable complaints except - Constitutional Constitutional: As Per HPI - EENT Eyes: absent: As Per HPI, Blind Spots, Blurred Vision, Change in Vision, Decreased Night Vision, Diplopia, Discharge, Dry Eye, Exophthalmos, Floaters, Irritation, Itchy Eyes, Loss of Peripheral Vision, Pain, Photophobia, Requires Corrective Lenses, Sees Flashes, Spots in Vision, Tunnel Vision, Other Visual Disturbances, Loss of Vision, Other Ears: absent: As Per HPI, Decreased Hearing, Ear Discharge, Ear Pain, Tinnitus, Abnormal Hearing, Disequilibrium, Dizziness, Other Nose/Mouth/Throat: absent: As Per HPI, Epistaxis, Nasal Congestion, Nasal Discharge, Nasal Obstruction, Nasal Trauma, Nose Pain, Post Nasal Drip, Sinus Pain, Sinus Pressure, Bleeding Gums, Change in Voice, Dental Pain, Dry Mouth, Dysphagia, Halitosis, Hoarsness, Lip Swelling, Mouth Lesions, Mouth Pain, Odynophagia, Sore Throat, Throat Swelling, Tongue Swelling, Facial Pain, Neck Pain, Neck Mass, Other - Cardiovascular Cardiovascular: absent: As Per HPI, Acrocyanosis, Chest Pain, Chest Pain at Rest, Chest Pain with Activity, Claudication, Diaphoresis, Dyspnea, Dyspnea on Exertion, Edema, Irregular Heart Rhythm, Pain Radiating to Arm/Neck/Jaw, Leg Edema, Leg Ulcers, Lightheadedness, Orthopnea, Palpitations, Paroxysmal Nocturnal Dyspnea, Pedal Edema, Radiating Pain, Rapid Heart Rate, Slow Heart Rate, Syncope, Other - Respiratory Respiratory: absent: As Per HPI, Cough, Dyspnea, Hemoptysis, Dyspnea on Exertion, Wheezing, Snoring, Stridor, Pain on Inspiration, Chest Congestion, Excessive Mucous Production, Change in Mucous Color, Pain with Coughing, Other - Gastrointestinal Gastrointestinal: absent: As Per HPI, Abdominal Pain, Belching, Bloating, Change in Bowel Habits, Change in Stool Character, Coffee Ground Emesis, Constipation, Cramping, Diarrhea, Dyspepsia, Dysphagia, Early Satiety, Excessive Flatus, Fecal Incontinence, Heartburn, Hematemesis, Hematochezia, Loose Stools, Melena, Nausea, Odynophagia, Temesmus, Vomiting, Other - Genitourinary Genitourinary: Change in Urinary Stream, Hematuria - Musculoskeletal Musculoskeletal: absent: As Per HPI, Abnormal Gait, Arthralgias, Atrophy, Back Pain, Deformity, Joint Swelling, Limited Range of Motion, Loss of Height, Muscle Cramps, Muscle Weakness, Myalgias, Neck Pain, Numbness, Radiating Pain into Limb, Stiffness, Tingling, Other - Integumentary Integumentary: absent: As Per HPI, Acne, Alopecia, Bleeding Lesions, Change in Hair, Change in Nails, Change in Pigmentation, Changing Lesions, Dry Skin, Erythema, Furuncle, Hirsutism, Lesions, New Lesions, Non-Healing Lesions, Photosensitivity, Pruritus, Rash, Skin Pain, Skin Ulcer, Sores, Striae, Swelling, Unusual Bruising, Wounds, Jaundice, Other - Neurological Neurological: As Per HPI, Memory Loss - Psychiatric Psychiatric: absent: As Per HPI, Abnormal Sleep Pattern, Anhedonia, Anxiety, Auditory Hallucinations, Behavioral Changes, Change in Appetite, Change in Libido, Confusion, Depression, Difficulty Concentrating, Hallucinations, Homicidal Ideation, Hopelessness, Irritability, Memory Loss, Mood Swings, Panic Attacks, Paranoia, Suicidal Ideation, Visual Hallucinations, Tactile Hallucinati ons, Other - Endocrine Endocrine: absent: As Per HPI, Change in Body Appearance, Change in Libido, Cold Intolorance, Deepening of Voice, Excessive Sweating, Fatigue, Flushing, Heat Intolorance, Increase in Ring/Shoe/Hat Size, Palpitations, Polydipsia, Polyphagi a, Polyuria, Other - Hematologic/Lymphatic Hematologic: absent: As Per HPI, Easy Bleeding, Easy Bruising, Lymphadenopathy, Other Past Patient History - Past Medical History & Family History Past Medical History?: Yes - Past Social History Smoking Status: Never Smoked - CARDIAC Hx Hypercholesterolemia: Yes Hx Hypertension: Yes - PULMONARY Hx Asthma: Yes Hx Pneumonia: Yes - NEUROLOGICAL Hx Dementia: Yes Hx Transient Ischemic Attacks (TIA): Yes - HEENT Hx HEENT Problems: Yes Hx Glaucoma: Yes Other/Comment: APHSIA - RENAL Hx Chronic Kidney Disease: No - ENDOCRINE/METABOLIC Hx Hypothyroidism: Yes - HEMATOLOGICAL/ONCOLOGICAL Hx Blood Disorders: Yes Hx Cancer: Yes (PROSTATE) - INTEGUMENTARY Hx Dermatological Problems: No - MUSCULOSKELETAL/RHEUMATOLOGICAL Hx Arthritis: Yes - GASTROINTESTINAL Hx Gastrointestinal Disorders: Yes - GENITOURINARY/GYNECOLOGICAL Hx Genitourinary Disorders: Yes Hx Prostate Cancer: Yes - PSYCHIATRIC Hx Anxiety: Yes Hx Depression: Yes Hx Substance Use: No - SURGICAL HISTORY Hx Surgeries: Yes Hx Eye Surgery: Yes (RIGHT EYE ) Other/Comment: PROSTATE SEEDING (88 SEEDS IMPLANTED) - ANESTHESIA Hx Anesthesia: Yes Hx Anesthesia Reactions: No Hx Malignant Hyperthermia: No Meds Allergies/Adverse Reactions: Allergies Allergy/AdvReac Type Severity Reaction Status Date / Time No Known Allergies Allergy Unverified 06/26/18 08:13 - Medications Medications: Current Medications Al Hydrox/Mg Hydrox/Simethicone (Maalox Plus 30 Ml) 30 ml PO Q4 PRN PRN Reason: Nausea/Vomiting Albuterol (Ventolin Hfa 90 Mcg/Actuation (8 G)) 2 puff IH Q6 PRN PRN Reason: Wheezing Brimonidine Tartrate (Alphagan 0.2% Opht) 0 ml OS BID COUNT [facility]CLUDES [facility] Last Admin: 12/04/18 10:01 Dose: Not Given Dextrose (Dextrose 50% Inj) 0 ml IV STAT PRN; Protocol PRN Reason: Hypoglycemia Protocol Dextrose (Glutose 15) 0 gm PO ONCE PRN; Protocol PRN Reason: Hypoglycemia Protocol Docusate Sodium (Colace) 100 mg PO HS [facility] Last Admin: 12/03/18 22:06 Dose: 100 mg Docusate Sodium (Colace) 100 mg PO TID DEX Donepezil HCl (Aricept) 10 mg PO HS [facility] Last Admin: 12/03/18 22:06 Dose: 10 mg Glucagon (Glucagen Diagnostic Kit) 0 mg IM STAT PRN; Protocol PRN Reason: Hypoglycemia Protocol Hydralazine HCl (Apresoline) 50 mg PO TID [facility] Last Admin: 12/04/18 10:02 Dose: Not Given Hydromorphone HCl (Dilaudid) 0.5 mg IVP Q15M PRN PRN Reason: Pain, moderate (4-7) Stop: 12/04/18 12:37 Dextrose (Dextrose 5% In Water 1000 Ml) 1,000 mls @ 0 mls/hr IV .Q0M PRN; Protocol PRN Reason: Hypoglycemia Protocol Sodium Chloride (Sodium Chloride 0.9%) 1,000 mls @ 75 mls/hr IV .[id number] DEX Dextrose/Sodium Chloride (Dextrose 5%/0.45% Ns 1000 Ml) 1,000 mls @ 80 mls/hr IV .[id number] COUNT [facility]CLUDES [facility] Last Admin: 12/04/18 08:54 Dose: Not Given Cefepime HCl 1 gm/ Dextrose 50 mls @ 100 mls/hr IVPB Q12H COUNT [facility]CLUD[facility]; Protocol Last Admin: 12/04/18 00:00 Dose: 100 mls/hr Potassium Chloride/Dextrose/Sod Cl (Potassium Chl 20 Meq In D5-1/2ns) 1,000 mls @ 60 mls/hr IV .[id number] COUNT INCLUDES [facility] Insulin Human Regular (Novolin R) 0 unit SC Q6H COUNT [facility]CLUD[facility]; Protocol Last Admin: 12/04/18 08:49 Dose: Not Given Levothyroxine Sodium (Synthroid) 75 mcg PO 0630 [facility] Last Admin: 12/04/18 05:55 Dose: 75 mcg Magnesium Hydroxide (Milk Of Magnesia) 30 ml PO DAILY PRN PRN Reason: Constipation Metoprolol Tartrate (Lopressor) 25 mg PO BID [facility] Last Admin: 12/04/18 10:02 Dose: Not Given Mirtazapine (Remeron) 7.5 mg PO [facility] Last Admin: 12/03/18 22:06 Dose: 7.5 mg Paroxetine HCl (Paxil) 20 mg PO DAILY [facility] Last Admin: 12/04/18 10:02 Dose: Not Given Risperidone (Risperdal Tab) 3 mg PO [facility] Last Admin: 12/03/18 22:06 Dose: 3 mg Rosuvastatin Calcium (Crestor) 10 mg PO [facility] Last Admin: 12/03/18 22:06 Dose: 10 mg Physical Exam - Constitutional Appears: No Acute Distress, Confused, Cachectic, Chronically Ill - Head Exam Head Exam: ATRAUMATIC, NORMAL INSPECTION, NORMOCEPHALIC - Eye Exam Eye Exam: EOMI, PERRL. absent: Scleral icterus - ENT Exam ENT Exam: Mucous Membranes Dry, Normal External Ear Exam - Neck Exam Neck exam: Negative for: Lymphadenopathy - Respiratory Exam Respiratory Exam: Decreased Breath Sounds, Rhonchi - Cardiovascular Exam Cardiovascular Exam: REGULAR RHYTHM, +S1, +S2 - GI/Abdominal Exam GI & Abdominal Exam: Diminished Bowel Sounds, Soft. absent: Tenderness - Rectal Exam Rectal Exam: Deferred - Exam Exam: NORMAL INSPECTION - Extremities Exam Extremities exam: Positive for: pedal pulses present. Negative for: calf tenderness, pedal edema, tenderness - Neurological Exam Neurological exam: Alert, CN II-XII Intact, Oriented x3, Reflexes Normal - Psychiatric Exam Psychiatric exam: Normal Mood - Skin Skin Exam: Dry Results - Vital Signs Recent Vital Signs: Last Vital Signs Temp 97 F L 12/04/18 10:38 Pulse 75 12/04/18 11:20 Resp 10 L 12/04/18 11:20 BP 140/62 12/04/18 11:20 Pulse Ox 100 12/04/18 11:20 - Labs Result Diagrams: 12/04/18 07:46 12/04/18 07:46 Labs: Laboratory Results - last 24 hr 12/03/18 12/03/18 12/04/18 16:42 21:10 02:13 WBC RBC Hgb Hct MCV MCH MCHC RDW Plt Count MPV Neut % (Auto) Lymph % (Auto) [place] % (Auto) Eos % (Auto) Baso % (Auto) Neut # (Auto) Lymph # (Auto) [place] # (Auto) Eos # (Auto) Baso # (Auto) PT INR APTT Sodium Potassium Chloride Carbon Dioxide Anion Gap BUN Creatinine Est GFR ( Amer) Est GFR (Non-Af Amer) POC Glucose (mg/dL) 89 103 98 Random Glucose Hemoglobin A1c Calcium Phosphorus Magnesium Total Bilirubin AST ALT Alkaline Phosphatase Total Protein Albumin Globulin Albumin/Globulin Ratio Triglycerides Cholesterol LDL Cholesterol Direct HDL Cholesterol Free T4 TSH 3rd Generation 12/04/18 12/04/18 12/04/18 04:43 07:46 07:46 WBC 7.6 RBC 2.66 L Hgb 8.4 L Hct 24.9 L MCV 93.6 MCH 31.5 H MCHC 33.7 RDW 14.3 Plt Count 177 MPV 10.0 Neut % (Auto) 53.6 Lymph % (Auto) 33.8 [place] % (Auto) 7.5 Eos % (Auto) 4.6 H Baso % (Auto) 0.5 Neut # (Auto) 4.1 Lymph # (Auto) 2.6 [place] # (Auto) 0.6 Eos # (Auto) 0.3 Baso # (Auto) 0.0 PT INR APTT Sodium 136 Potassium 4.1 Chloride 99 Carbon Dioxide 32 H Anion Gap 9 L BUN 19 Creatinine 1.1 Est GFR ( Amer) > 60 Est GFR (Non-Af Amer) > 60 POC Glucose (mg/dL) 103 Random Glucose 100 Hemoglobin A1c Calcium 9.2 Phosphorus 3.5 Magnesium 1.8 Total Bilirubin 0.3 AST 44 ALT 49 Alkaline Phosphatase 82 Total Protein 6.3 Albumin 3.3 L Globulin 3.0 Albumin/Globulin Ratio 1.1 Triglycerides 107 D Cholesterol 150 LDL Cholesterol Direct 77 HDL Cholesterol 43 Free T4 TSH 3rd Generation 14.60 H 12/04/18 12/04/18 12/04/18 07:46 07:46 07:46 WBC RBC Hgb Hct MCV MCH MCHC RDW Plt Count MPV Neut % (Auto) Lymph % (Auto) [place] % (Auto) Eos % (Auto) Baso % (Auto) Neut # (Auto) Lymph # (Auto) [place] # (Auto) Eos # (Auto) Baso # (Auto) PT 12.9 H INR 1.2 APTT 31 Sodium Potassium Chloride Carbon Dioxide Anion Gap BUN Creatinine Est GFR ( Amer) Est GFR (Non-Af Amer) POC Glucose (mg/dL) Random Glucose Hemoglobin A1c 5.7 Calcium Phosphorus Magnesium Total Bilirubin AST ALT Alkaline Phosphatase Total Protein Albumin Globulin Albumin/Globulin Ratio Triglycerides Cholesterol LDL Cholesterol Direct HDL Cholesterol Free T4 1.20 TSH 3rd Generation 12/04/18 08:44 WBC RBC Hgb Hct MCV MCH MCHC RDW Plt Count MPV Neut % (Auto) Lymph % (Auto) [place] % (Auto) Eos % (Auto) Baso % (Auto) Neut # (Auto) Lymph # (Auto) [place] # (Auto) Eos # (Auto) Baso # (Auto) PT INR APTT Sodium Potassium Chloride Carbon Dioxide Anion Gap BUN Creatinine Est GFR ( Amer) Est GFR (Non-Af Amer) POC Glucose (mg/dL) 94 Random Glucose Hemoglobin A1c Calcium Phosphorus Magnesium Total Bilirubin AST ALT Alkaline Phosphatase Total Protein Albumin Globulin Albumin/Globulin Ratio Triglycerides Cholesterol LDL Cholesterol Direct HDL Cholesterol Free T4 TSH 3rd Generation Assessment & Plan (1) Cystitis Status: Acute (2) Dementia Status: Acute (3) Hematuria Status: Acute - Assessment and Plan (Free Text) Assessment: await cultures post op course clinically stable IV antibiotics ordered
[2018-12-04] MEDS: Potassium Ch 20mEq in D5-1/2NS 1,000 ML IV SCH (12:23)
[2018-12-05] MEDS: Levothyroxine 75 MCG TAB PO SCH (06:16)
[2018-12-05] MEDS: Potassium Ch 20mEq in D5-1/2NS 1,000 ML IV SCH (06:23)
--- NOTE | 2018-12-05 07:18 | CP.PCM.PN ---
Subjective - Date & Time of Evaluation Date of Evaluation: 12/05/18 Time of Evaluation: 07:18 - Subjective Subjective: Medicine Progress Note - Dr Salter's service Patient seen and examined at bedside. Per nursing no acute events overnight. Patient is confused, pulling on IV lines. Mendoza is in draining mckee red urine. He is tolerating diet. Patient offers no complaints at this time. Objective - Vital Signs/Intake and Output Vital Signs (last 24 hours): Temp Pulse Resp BP Pulse Ox 97.5 F L 77 20 147/66 96 12/05/18 00:00 12/05/18 00:00 12/05/18 00:00 12/05/18 00:00 12/05/18 06:51 Intake and Output: 12/05/18 12/05/18 06:59 18:59 Intake Total 5260 Output Total 8550 Balance -3290 - Medications Medications: Current Medications Al Hydrox/Mg Hydrox/Simethicone (Maalox Plus 30 Ml) 30 ml PO Q4 PRN PRN Reason: Nausea/Vomiting Albuterol (Ventolin Hfa 90 Mcg/Actuation (8 G)) 2 puff IH Q6 PRN PRN Reason: Wheezing Brimonidine Tartrate (Alphagan 0.2% Opht) 0 ml OS BID [facility] Last Admin: 12/04/18 17:44 Dose: 1 drop Dextrose (Dextrose 50% Inj) 0 ml IV STAT PRN; Protocol PRN Reason: Hypoglycemia Protocol Dextrose (Glutose 15) 0 gm PO ONCE PRN; Protocol PRN Reason: Hypoglycemia Protocol Docusate Sodium (Colace) 100 mg PO [facility] Last Admin: 12/04/18 21:50 Dose: 100 mg Docusate Sodium (Colace Liquid) 100 mg PEG TID [facility] Last Admin: 12/04/18 17:45 Dose: 100 mg Donepezil HCl (Aricept) 10 mg PO HS [facility] Last Admin: 12/04/18 21:50 Dose: 10 mg Glucagon (Glucagen Diagnostic Kit) 0 mg IM STAT PRN; Protocol PRN Reason: Hypoglycemia Protocol Hydralazine HCl (Apresoline) 50 mg PO TID [facility] Last Admin: 12/04/18 17:53 Dose: 50 mg Dextrose (Dextrose 5% In Water 1000 Ml) 1,000 mls @ 0 mls/hr IV .Q0M PRN; Protocol PRN Reason: Hypoglycemia Protocol Dextrose/Sodium Chloride (Dextrose 5%/0.45% Ns 1000 Ml) 1,000 mls @ 80 mls/hr IV .[id number] [facility] Last Admin: 12/04/18 21:54 Dose: Not Given Cefepime HCl 1 gm/ Dextrose 50 mls @ 100 mls/hr IVPB Q12H [facility]; Protocol Last Admin: 12/04/18 22:10 Dose: 100 mls/hr Potassium Chloride/Dextrose/Sod Cl (Potassium Chl 20 Meq In D5-1/2ns) 1,000 mls @ 60 mls/hr IV .[id number] [facility] Last Admin: 12/05/18 06:23 Dose: 60 mls/hr Influenza Virus Vaccine (Flucelvax Quad [id number] Syr) 60 mcg IM .ONCE ONE Stop: 12/05/18 10:01 Insulin Human Regular (Novolin R) 0 unit SC ACHS [facility]; Protocol Last Admin: 12/04/18 17:42 Dose: 2 units Levothyroxine Sodium (Synthroid) 75 mcg PO 0630 [facility] Last Admin: 12/05/18 06:16 Dose: 75 mcg Magnesium Hydroxide (Milk Of Magnesia) 30 ml PO DAILY PRN PRN Reason: Constipation Metoprolol Tartrate (Lopressor) 25 mg PO BID [facility] Last Admin: 12/04/18 17:53 Dose: 25 mg Mirtazapine (Remeron) 7.5 mg PO HS [facility] Last Admin: 12/04/18 22:09 Dose: 7.5 mg Paroxetine HCl (Paxil) 20 mg PO DAILY [facility] Last Admin: 12/04/18 10:02 Dose: Not Given Pneumococcal Polyvalent Vaccine (Pneumovax 23 Vaccine) 0.5 ml IM .ONCE ONE Stop: 12/05/18 10:01 Risperidone (Risperdal Tab) 3 mg PO HS [facility] Last Admin: 12/04/18 21:50 Dose: 3 mg Rosuvastatin Calcium (Crestor) 10 mg PO HS [facility] Last Admin: 12/04/18 21:50 Dose: 10 mg - Labs Labs: 12/04/18 07:46 12/04/18 07:46 PT 12.9 SECONDS (9.7-12.2) H 12/04/18 07:46 INR 1.2 12/04/18 07:46 APTT 31 SECONDS (21-34) 12/04/18 07:46 - Additional Findings Additional findings: - Constitutional Appears: Non-toxic, No Acute Distress - Head Exam Head Exam: ATRAUMATIC, NORMAL INSPECTION, NORMOCEPHALIC - Respiratory Exam Respiratory Exam: Clear to Ausculation Bilateral, NORMAL BREATHING PATTERN - Cardiovascular Exam Cardiovascular Exam: REGULAR RHYTHM, RRR, +S1, +S2 - GI/Abdominal Exam GI & Abdominal Exam: Soft. absent: Tenderness Additional comments: percutaneous gastrostomy tube - Exam Additional comments: indwelling mendoza catheter - Extremities Exam Extremities Exam: Normal Inspection. absent: Pedal Edema, Tenderness - Neurological Exam Neurological Exam: Alert, Awake, Oriented x3 - Psychiatric Exam Psychiatric exam: Normal Affect, Normal Mood - Skin Skin Exam: Intact, Normal Color, Warm Assessment and Plan - Assessment and Plan (Free Text) Assessment: Hematuria (improving) -Stable, afebrile -Patient is s/p cystoscopy and TURP POD#1 -Urology consulted, Dr. Shara Topete, help appreciated -Urine culture showing now growth -Antibiotics: Cefepime 1gm daily IVPB -Dr. Mcmullen, ID, consulted- help appreciated Imaging: CT Abd Pelvis with IV contrast (12/03/18): mendoza catheter within the urinary bladder. urinary bladder appears thick walled. mild associated inflammatory changes. findings appear consistent with cystitis. appendix appears minimally dilated measuring approximately 7mm in diameter. no significant periappendiceal inflammatory changes are evident. suspect sludge within the gallbladder. percutaneous gastrostomy tube. prostate radiation seeds. Mild bibasilar atelectasis. Trace effusions. ( see full report ) Anemia -Hemoglobin is 8.0 -Started on Ferrous sulfate 325mg PO daily -Anemia workup ordered -We will continue to monitor COPD -Albuterol 2 puff q6h ptn DMII (controlled) -Insulin sliding scale and accuchecks ACHS -hypoglycemia protocol -HgA1C 5.7 Hypothyroidism -Synthroid 75mcg po daily -TSH 14.60, will repeat today HTN -Metoprolol 25mg po BID -Hydralazine 50mg po TID Depression -Remeron 7.5mg po HS -Paxil 20mg po daily, 10mg PO HS -Risperdal 3mg po HS -Clonazepam 0.5mg PO HS Dementia -Aricept 10mg po HS HLD (controlled) -Crestor 10mg po HS Glaucoma Alphagan .2% opht Constipation Milk of Magnesia 30mg po daily prn Colace 100mg po HS Prophylaxis SCDs Plan discussed with Dr. Joie Greer DO PGY-2
[2018-12-05 07:21] LABS: BASO % 0.1 % (0.0-2.0); EOS # 0.2 K/uL (0.0-0.7); EOS % 1.5 % (0.0-4.0); LYMPH # 2.3 K/uL (1.0-4.3); LYMPH % 20.9 % (20.0-40.0); MEAN CELL VOLUME 92.8 fL (80.0-94.0); MEAN CORPUSCULAR HEMOGLOBIN 31.3 pg (27.0-31.0); MEAN CORPUSCULAR HGB CONC 33.7 g/dL (33.0-37.0); MEAN PLATELET VOLUME 10.3 fL (7.2-11.7); MONO # 1.1 K/uL (0.0-0.8); MONO % 9.6 % (0.0-10.0); NEUT # 7.5 K/uL (1.8-7.0); NEUT % 67.9 % (50.0-75.0); RBC 2.57 Mil/uL (4.40-5.90); RED CELL DISTRIBUTION WIDTH 14.4 % (11.5-14.5)
[2018-12-05 07:59] LABS: ALB/GLOB RATIO 1.2 (1.0-2.1); ALBUMIN 3.4 g/dL (3.5-5.0); ALT/SGPT 44 U/L (21-72); AST/SGOT 29 U/L (17-59); BLOOD UREA NITROGEN 20 mg/dL (9-20); CALCIUM 9.2 mg/dl (8.6-10.4); GFR NON-AFRICAN AMERICAN 54
[2018-12-05] MEDS: (Novolin R) Insulin Human Regular 100 units/ml vial SC SCH ×4 (08:27→22:02)
[2018-12-05] MEDS ORDERED: Influenza Vaccine 60 mcg/0.5 mL SYR (4YR UP) IM ONE (10:00)
[2018-12-05] MEDS ORDERED: Pneumococcal 23-Valent Vaccine IM ONE (10:00)
[2018-12-05] MEDS: Multiple Vitamins Tab PO SCH (10:11)
[2018-12-05] MEDS: Brimonidine 0.2% Opth Sol (5ml) OS SCH ×2 (10:12→18:00)
[2018-12-05] MEDS: Dextrose 5%/0.45% NS 1,000 ML IV SCH ×2 (10:12→22:00)
--- NOTE | 2018-12-05 18:00 | CP.PCM.PN ---
Subjective - Date & Time of Evaluation Date of Evaluation: 12/05/18 Time of Evaluation: 09:00 - Subjective Subjective: confused nad blood c/s so far negative Objective - Vital Signs/Intake and Output Vital Signs (last 24 hours): Temp Pulse Resp BP Pulse Ox 97.7 F 73 20 171/70 H 96 12/05/18 15:00 12/05/18 15:00 12/05/18 15:00 12/05/18 17:37 12/05/18 15:30 Intake and Output: 12/05/18 12/05/18 06:59 18:59 Intake Total 5260 1660 Output Total 8550 2800 Balance -3290 -1140 - Medications Medications: Current Medications Al Hydrox/Mg Hydrox/Simethicone (Maalox Plus 30 Ml) 30 ml PO Q4 PRN PRN Reason: Nausea/Vomiting Albuterol (Ventolin Hfa 90 Mcg/Actuation (8 G)) 2 puff IH Q6 PRN PRN Reason: Wheezing Brimonidine Tartrate (Alphagan 0.2% Opht) 0 ml OS BID [facility] Last Admin: 12/05/18 10:12 Dose: 1 drop Clonazepam (Klonopin) 0.5 mg PO HS [facility] Dextrose (Dextrose 50% Inj) 0 ml IV STAT PRN; Protocol PRN Reason: Hypoglycemia Protocol Dextrose (Glutose 15) 0 gm PO ONCE PRN; Protocol PRN Reason: Hypoglycemia Protocol Docusate Sodium (Colace) 100 mg PO HS [facility] Last Admin: 12/04/18 21:50 Dose: 100 mg Docusate Sodium (Colace Liquid) 100 mg PEG TID [facility] Last Admin: 12/05/18 13:46 Dose: 100 mg Donepezil HCl (Aricept) 10 mg PO HS [facility] Last Admin: 12/04/18 21:50 Dose: 10 mg Ferrous Sulfate (Feosol) 325 mg PO DAILY [facility] Last Admin: 12/05/18 10:11 Dose: 325 mg Glucagon (Glucagen Diagnostic Kit) 0 mg IM STAT PRN; Protocol PRN Reason: Hypoglycemia Protocol Hydralazine HCl (Apresoline) 50 mg PO TID [facility] Last Admin: 12/05/18 17:37 Dose: 50 mg Dextrose (Dextrose 5% In Water 1000 Ml) 1,000 mls @ 0 mls/hr IV .Q0M PRN; Protocol PRN Reason: Hypoglycemia Protocol Dextrose/Sodium Chloride (Dextrose 5%/0.45% Ns 1000 Ml) 1,000 mls @ 80 mls/hr IV .[id number] [facility] Last Admin: 12/05/18 10:12 Dose: Not Given Cefepime HCl 1 gm/ Dextrose 50 mls @ 100 mls/hr IVPB Q12H [facility]; Protocol Last Admin: 12/05/18 12:18 Dose: 100 mls/hr Insulin Human Regular (Novolin R) 0 unit SC ACHS [facility]; Protocol Last Admin: 12/05/18 16:30 Dose: Not Given Levothyroxine Sodium (Synthroid) 75 mcg PO 0630 [facility] Last Admin: 12/05/18 06:16 Dose: 75 mcg Magnesium Hydroxide (Milk Of Magnesia) 30 ml PO DAILY PRN PRN Reason: Constipation Metoprolol Tartrate (Lopressor) 25 mg PO BID [facility] Last Admin: 12/05/18 17:37 Dose: 25 mg Mirtazapine (Remeron) 7.5 mg PO HS [facility] Last Admin: 12/04/18 22:09 Dose: 7.5 mg Multivitamins (Hexavitamin) 1 tab PO DAILY [facility] Last Admin: 12/05/18 10:11 Dose: 1 tab Paroxetine HCl (Paxil) 20 mg PO DAILY [facility] Last Admin: 12/05/18 10:11 Dose: 20 mg Paroxetine HCl (Paxil) 10 mg PO HS [facility] Risperidone (Risperdal Tab) 3 mg PO HS [facility] Last Admin: 12/04/18 21:50 Dose: 3 mg Rosuvastatin Calcium (Crestor) 10 mg PO HS [facility] Last Admin: 12/04/18 21:50 Dose: 10 mg - Labs Labs: 12/05/18 06:57 12/05/18 06:57 PT 12.9 SECONDS (9.7-12.2) H 12/04/18 07:46 INR 1.2 12/04/18 07:46 APTT 31 SECONDS (21-34) 12/04/18 07:46 - Constitutional Appears: Non-toxic, Cachectic, Chronically Ill - Head Exam Head Exam: ATRAUMATIC, NORMOCEPHALIC - Eye Exam Eye Exam: absent: Scleral icterus - ENT Exam ENT Exam: Mucous Membranes Dry - Neck Exam Neck Exam: absent: Lymphadenopathy - Respiratory Exam Respiratory Exam: Decreased Breath Sounds - Cardiovascular Exam Cardiovascular Exam: REGULAR RHYTHM - GI/Abdominal Exam GI & Abdominal Exam: Distended - Rectal Exam Rectal Exam: Deferred - Exam Exam: NORMAL INSPECTION - Extremities Exam Extremities Exam: absent: Pedal Edema - Back Exam Back Exam: absent: CVA tenderness (L), CVA tenderness (R) - Neurological Exam Neurological Exam: Alert, Altered, Awake Assessment and Plan (1) Cystitis Status: Acute (2) Dementia Status: Acute (3) Hematuria Status: Acute - Assessment and Plan (Free Text) Assessment: cont iv rx cultures neg thus far
--- NOTE | 2018-12-05 18:58 | PCM.URO ---
Urology Progress Note - General General: No Complaints - Subjective Abdominal Pain: No Flank Pain: No Nausea: No Hematuria: Yes (sl pink, clear in tubing) Chest Pain: No Fever & Chills: No - Objective Lab Studies: Reviewed (Hct=24 Creat = 1.3) Lab Results Last 24 Hours: Laboratory Results - last 24 hr 12/04/18 12/04/18 12/05/18 16:44 21:25 06:57 WBC 11.0 H RBC 2.57 L Hgb 8.0 L Hct 23.8 L MCV 92.8 MCH 31.3 H MCHC 33.7 RDW 14.4 Plt Count 158 MPV 10.3 Neut % (Auto) 67.9 Lymph % (Auto) 20.9 Sibley % (Auto) 9.6 Eos % (Auto) 1.5 Baso % (Auto) 0.1 Neut # (Auto) 7.5 H Lymph # (Auto) 2.3 Sibley # (Auto) 1.1 H Eos # (Auto) 0.2 Baso # (Auto) 0.0 Sodium Potassium Chloride Carbon Dioxide Anion Gap BUN Creatinine Est GFR ( Amer) Est GFR (Non-Af Amer) POC Glucose (mg/dL) 241 H 262 H Random Glucose Calcium Phosphorus Magnesium Total Bilirubin AST ALT Alkaline Phosphatase Total Protein Albumin Globulin Albumin/Globulin Ratio TSH 3rd Generation 12/05/18 12/05/18 12/05/18 06:57 07:30 11:10 WBC RBC Hgb Hct MCV MCH MCHC RDW Plt Count MPV Neut % (Auto) Lymph % (Auto) Sibley % (Auto) Eos % (Auto) Baso % (Auto) Neut # (Auto) Lymph # (Auto) Sibley # (Auto) Eos # (Auto) Baso # (Auto) Sodium 135 Potassium 4.3 Chloride 99 Carbon Dioxide 28 Anion Gap 12 BUN 20 Creatinine 1.3 Est GFR ( Amer) > 60 Est GFR (Non-Af Amer) 54 POC Glucose (mg/dL) 111 H 165 H Random Glucose 125 H D Calcium 9.2 Phosphorus 3.5 Magnesium 1.6 Total Bilirubin 0.2 AST 29 ALT 44 Alkaline Phosphatase 84 Total Protein 6.2 L Albumin 3.4 L Globulin 2.8 Albumin/Globulin Ratio 1.2 TSH 3rd Generation 17.30 H 12/05/18 16:48 WBC RBC Hgb Hct MCV MCH MCHC RDW Plt Count MPV Neut % (Auto) Lymph % (Auto) Sibley % (Auto) Eos % (Auto) Baso % (Auto) Neut # (Auto) Lymph # (Auto) Sibley # (Auto) Eos # (Auto) Baso # (Auto) Sodium Potassium Chloride Carbon Dioxide Anion Gap BUN Creatinine Est GFR ( Amer) Est GFR (Non-Af Amer) POC Glucose (mg/dL) 137 H Random Glucose Calcium Phosphorus Magnesium Total Bilirubin AST ALT Alkaline Phosphatase Total Protein Albumin Globulin Albumin/Globulin Ratio TSH 3rd Generation Intake & Output: Intake & Output 12/04/18 12/05/18 12/05/18 18:59 06:59 18:59 Intake Total 7050 5260 1660 Output Total 8550 8550 2800 Balance -1500 -3290 -1140 Intake: IV 950 Intake, IV Amount 300 960 300 Left Antecubital 300 960 300 Oral 550 360 Tube Feeding 50 Other 5750 3750 1000 Output: Urine 8550 8550 2800 Urethral (Ferguson) 1000 3150 1300 Stool 0 Other: # Bowel Movements 0 0 0 Vital Signs: Vital Signs - 24 hr 12/05/18 12/05/18 12/05/18 00:00 06:51 07:00 Temperature 97.5 F L 97.5 F L Pulse Rate 77 75 Respiratory 20 20 Rate Blood Pressure 147/66 174/63 H O2 Sat by Pulse 96 96 99 Oximetry 12/05/18 12/05/18 12/05/18 08:48 10:13 12:00 Temperature Pulse Rate Respiratory Rate Blood Pressure 174/63 H O2 Sat by Pulse 96 96 Oximetry 12/05/18 12/05/18 12/05/18 15:00 15:30 17:37 Temperature 97.7 F Pulse Rate 73 Respiratory 20 Rate Blood Pressure 171/70 H 171/70 H O2 Sat by Pulse 99 96 Oximetry - Physical Exam Abdominal Exam: Soft, Non-Tender, Non-Distended Back: No CVA Tenderness Genitalia: Without Inflammation Urine Color: Dark Sanjuana - Male Phallus: Normal Scrotum: Normal - Plan Catheter Care: Yes Ambulation - Out of Bed: Yes Discontinue Intravenous Fluids: Yes Intake & Output: Yes Additional Information: IMP: stable p turp. hx of hematuria, uti, prostate ca. P- see orders - Date & Time of Note Date: 12/05/18 Time: 13:05
--- NOTE | 2018-12-05 22:49 | CARD ---
APPROVED REPORT Date of service: 12/03/2018 EKG Measurement Heart [id number] ID [id number] <Conclusion> Normal sinus rhythm Normal ECG
--- NOTE | 2018-12-06 04:37 | CON ---
DATE: 12/05/2018 UROLOGY REQUESTED BY: Tamela Salter MD UROLOGY CONSULTATION FILLED BY: Shara Topete MD REASON FOR CONSULTATION: Hematuria. HISTORY OF PRESENT ILLNESS: The patient is a 78-year-old male with hematuria. The patient has history of dementia. The patient is a resident of the senior living. The patient presented with gross hematuria for the past week. The patient is transferred to the hospital for evaluation and therapy. The patient has significant past medical history including depression, hypertension, schizophrenia, hypothyroidism. There is history of arthritis and asthma. The details are as reviewed from the chart as well as from the reports and the records transferred from the senior living. The patient presented to the emergency room and he was found to have persistent hematuria. The patient has a indwelling Ferguson catheter. Catheter is in place for urinary retention. The patient also has been treated for recent urinary tract infection. The patient has a significant past urologic history. The patient had prostate seed implantation for prostate cancer. The procedure was performed in [place]. PHYSICAL EXAMINATION: GENERAL: The patient is a well developed, well nourished, elderly male. The patient is unable to provide further history. The patient is oriented to person. The patient is awake and conversant. ABDOMEN: Soft, nontender, nondistended. No mass or organomegaly. BACK: No CVA tenderness. GENITALIA: Without inflammation. Urine demonstrates moderate hematuria via the Ferguson catheter. RECTAL: Normal sphincter tone. Prostate is enlarged, approximately 25 g size. Prostate is smooth and firm and symmetric without fixation, induration or nodularity. PAST MEDICAL HISTORY: The patient has history of hypertension, diabetes and hypothyroidism. The patient does not smoke. The patient previously drank alcohol. LABORATORY DATA: White blood count 9,000, hematocrit 28, platelet count 188,000. BUN 26, creatinine 1.1, glucose 90. IMPRESSION: The patient is a 78-year-old male with hematuria. History of radiation therapy for prostate carcinoma. The patient has urinary tract infection. The patient has urinary retention. Differential diagnosis for hematuria includes infection, neoplasia, and/or urolithiasis. RECOMMENDATION AND PLAN: Antibiotic therapy. Urine culture. Urine cytology. Serum PSA. Possible cystoscopy to follow. We will discuss with the attending physician. We will discuss with the patient's family as well. Further therapy to follow according to the patient's clinical course as well as the results of above. Shara Topete MD cc: Tamela Salter MD
--- NOTE | 2018-12-06 04:54 | OP ---
PROCEDURE DATE: 12/04/2018 UROLOGY OPERATIVE REPORT PREOPERATIVE DIAGNOSES: Hematuria, urinary retention, history of prostate carcinoma. POSTOPERATIVE DIAGNOSES: Hematuria, urinary retention, history of prostate carcinoma, urethral stricture. PROCEDURES: Cystoscopy, evacuation of bladder clots, urethral dilation, transurethral resection of prostate. OPERATING SURGEON: Shara Topete MD The patient was placed in lithotomy position. The genitalia were prepped and draped sterilely. Anesthesia was applied by the anesthesiologist. A 22-Rwandan cystoscope sheath was introduced under direct vision. There was [id number] stricture of the bulbous urethra. This was dilated under direct vision with cystoscope sheath. The urethra, prostate and bladder were inspected. FINDINGS: The prostatic urethra was occlusive secondary to lateral lobe hypertrophy. Prostatic urethra was 3 cm in length. There was a grade III occlusion at the mid and apical areas of the prostate. There was no bladder neck contraction. There was moderate bladder trabeculation. There was moderate to large amount of clots within the bladder. Clots were removed using the Donya syringe as well as the Microvasive evacuator. The bladder was further inspected. There was no bladder tumor. There was no bladder stone. There was mild cystitis. The ureteral orifices were identified and were normal in position and shape bilaterally. There was no bladder diverticulum. There was moderate amount of bleeding from the surface of the prostate. There was active bleeding noted. Attempted stopping the bleeding with the ball electrode was performed, however, bleeding persisted. The resectoscope sheath was removed. A 26-Rwandan continuous flow resectoscope was inserted. The obstructing and bleeding prostatic tissue was resected. The resection was begun on the floor at the bladder neck. Thereafter, the anterior roof tissue was resected. Subsequently, the right lobe and thereafter the left lobe resected. Finally, the floor and apical prostatic tissues were resected. The landmarks of the veru as well as the ureteral orifices were identified and spared throughout the resection. Hemostasis was achieved after each section of resection. The prostatic chips were removed using the Microvasive evacuator. The resectoscope was inserted. The ureteral orifices were intact. There was no residual bleeding. There were no residual prostatic chips. The resectoscope and sheath were removed. The Ferguson catheter was inserted. Bladder drainage was clear. The patient was returned to supine position. The patient was transferred to recovery room in satisfactory condition. [place] MD Yoselyn cc: Tamela Salter MD
[2018-12-06] MEDS: Levothyroxine 75 MCG TAB PO SCH (06:48)
[2018-12-06 06:53] LABS: BASO % 0.4 % (0.0-2.0); EOS # 0.4 K/uL (0.0-0.7); EOS % 3.4 % (0.0-4.0); HEMOGLOBIN 8.3 g/dL (12.0-18.0); LYMPH # 2.1 K/uL (1.0-4.3); LYMPH % 19.9 % (20.0-40.0); MEAN CELL VOLUME 93.6 fL (80.0-94.0); MEAN CORPUSCULAR HEMOGLOBIN 30.9 pg (27.0-31.0); MEAN PLATELET VOLUME 10.5 fL (7.2-11.7); MONO # 0.9 K/uL (0.0-0.8); MONO % 8.4 % (0.0-10.0); NEUT % 67.9 % (50.0-75.0); RBC 2.69 Mil/uL (4.40-5.90); RED CELL DISTRIBUTION WIDTH 14.8 % (11.5-14.5); WHITE BLOOD COUNT 10.4 K/uL (4.8-10.8)
[2018-12-06 07:05] LABS: IRON 23 ug/dL (49-181)
[2018-12-06 07:14] LABS: % IRON SATURATION 10 (20-55); TOTAL IRON BINDING CAPACITY 234 ug/dL (250-450)
[2018-12-06 07:22] LABS: ALB/GLOB RATIO 1.1 (1.0-2.1); ALBUMIN 3.4 g/dL (3.5-5.0); ALT/SGPT 25 U/L (21-72); AST/SGOT 28 U/L (17-59); BLOOD UREA NITROGEN 18 mg/dL (9-20); CALCIUM 9.1 mg/dl (8.6-10.4); GFR NON-AFRICAN AMERICAN > 60
[2018-12-06 07:25] VITALS: RESP 20
[2018-12-06] MEDS: (Novolin R) Insulin Human Regular 100 units/ml vial SC SCH ×4 (07:25→22:15)
[2018-12-06 08:23] LABS: FOLATE 5.9 ng/mL
[2018-12-06] MEDS: Multiple Vitamins Tab PO SCH (09:46)
[2018-12-06] MEDS: Brimonidine 0.2% Opth Sol (5ml) OS SCH ×2 (09:59→17:56)
--- NOTE | 2018-12-06 12:46 | CP.PCM.PN ---
Subjective - Date & Time of Evaluation Date of Evaluation: 12/06/18 Time of Evaluation: 09:00 - Subjective Subjective: PGY2- Progress Note for Dr. Salter Patient seen and examined at bedside and in no acute distress. Patient is very lethargic and keeps falling asleep while trying to ask him questions. No acute events overnight. Per nursing, patient is less agitated compared to yesterday. Objective - Vital Signs/Intake and Output Vital Signs (last 24 hours): Temp Pulse Resp BP Pulse Ox 97.5 F L 74 20 170/66 H 96 12/06/18 07:00 12/06/18 07:00 12/06/18 07:00 12/06/18 10:02 12/06/18 07:00 Intake and Output: 12/06/18 12/06/18 06:59 18:59 Intake Total 1040 Output Total 1650 Balance -610 - Medications Medications: Current Medications Al Hydrox/Mg Hydrox/Simethicone (Maalox Plus 30 Ml) 30 ml PO Q4 PRN PRN Reason: Nausea/Vomiting Albuterol (Ventolin Hfa 90 Mcg/Actuation (8 G)) 2 puff IH Q6 PRN PRN Reason: Wheezing Brimonidine Tartrate (Alphagan 0.2% Opht) 0 ml OS BID [facility] Last Admin: 12/06/18 09:59 Dose: 1 drop Clonazepam (Klonopin) 0.5 mg PO HS [facility] Last Admin: 12/05/18 21:32 Dose: 0.5 mg Dextrose (Dextrose 50% Inj) 0 ml IV STAT PRN; Protocol PRN Reason: Hypoglycemia Protocol Dextrose (Glutose 15) 0 gm PO ONCE PRN; Protocol PRN Reason: Hypoglycemia Protocol Docusate Sodium (Colace) 100 mg PO HS [facility] Last Admin: 12/05/18 22:00 Dose: 100 mg Docusate Sodium (Colace Liquid) 100 mg PEG TID [facility] Last Admin: 12/06/18 09:46 Dose: 100 mg Donepezil HCl (Aricept) 10 mg PO HS [facility] Last Admin: 12/05/18 21:32 Dose: 10 mg Ferrous Sulfate (Feosol) 325 mg PO DAILY [facility] Last Admin: 12/06/18 10:21 Dose: 325 mg Glucagon (Glucagen Diagnostic Kit) 0 mg IM STAT PRN; Protocol PRN Reason: Hypoglycemia Protocol Hydralazine HCl (Apresoline) 50 mg PO TID [facility] Last Admin: 12/06/18 09:46 Dose: 50 mg Dextrose (Dextrose 5% In Water 1000 Ml) 1,000 mls @ 0 mls/hr IV .Q0M PRN; Protocol PRN Reason: Hypoglycemia Protocol Dextrose/Sodium Chloride (Dextrose 5%/0.45% Ns 1000 Ml) 1,000 mls @ 80 mls/hr IV .[id number] [facility] Last Admin: 12/05/18 22:00 Dose: 80 mls/hr Cefepime HCl 1 gm/ Dextrose 50 mls @ 100 mls/hr IVPB Q12H [facility]; Protocol Last Admin: 12/05/18 22:01 Dose: 100 mls/hr Insulin Human Regular (Novolin R) 0 unit SC ACHS [facility]; Protocol Last Admin: 12/06/18 07:25 Dose: Not Given Levothyroxine Sodium (Synthroid) 75 mcg PO 0630 [facility] Last Admin: 12/06/18 06:48 Dose: 75 mcg Magnesium Hydroxide (Milk Of Magnesia) 30 ml PO DAILY PRN PRN Reason: Constipation Metoprolol Tartrate (Lopressor) 25 mg PO BID [facility] Last Admin: 12/06/18 10:02 Dose: 25 mg Mirtazapine (Remeron) 7.5 mg PO HS [facility] Last Admin: 12/05/18 21:38 Dose: 7.5 mg Multivitamins (Hexavitamin) 1 tab PO DAILY [facility] Last Admin: 12/06/18 09:46 Dose: 1 tab Paroxetine HCl (Paxil) 20 mg PO DAILY [facility] Last Admin: 12/06/18 10:02 Dose: 20 mg Paroxetine HCl (Paxil) 10 mg PO HS [facility] Last Admin: 12/05/18 22:00 Dose: 10 mg Risperidone (Risperdal Tab) 3 mg PO HS [facility] Last Admin: 12/05/18 21:38 Dose: 3 mg Rosuvastatin Calcium (Crestor) 10 mg PO HS [facility] Last Admin: 12/05/18 21:34 Dose: 10 mg - Labs Labs: 12/06/18 06:45 12/06/18 06:45 PT 12.9 SECONDS (9.7-12.2) H 12/04/18 07:46 INR 1.2 12/04/18 07:46 APTT 31 SECONDS (21-34) 12/04/18 07:46 - Additional Findings Additional findings: - Constitutional Appears: Non-toxic, No Acute Distress - Head Exam Head Exam: ATRAUMATIC, NORMAL INSPECTION, NORMOCEPHALIC - Respiratory Exam Respiratory Exam: Clear to Ausculation Bilateral, NORMAL BREATHING PATTERN - Cardiovascular Exam Cardiovascular Exam: REGULAR RHYTHM, RRR, +S1, +S2 - GI/Abdominal Exam GI & Abdominal Exam: Soft. absent: Tenderness Additional comments: percutaneous gastrostomy tube - Exam Additional comments: indwelling mendoza catheter - Extremities Exam Extremities Exam: Normal Inspection. absent: Pedal Edema, Tenderness - Neurological Exam Neurological Exam: Alert, Awake, Oriented x3 - Psychiatric Exam Psychiatric exam: Normal Affect, Normal Mood - Skin Skin Exam: Intact, Normal Color, Warm Assessment and Plan - Assessment and Plan (Free Text) Assessment: Hematuria (improving) -Stable, afebrile -Patient is s/p cystoscopy and TURP POD#2 -Urology consulted, Dr. Shara Topete, help appreciated -Urine culture showing now growth -Antibiotics: Cefepime 1gm daily IVPB -Dr. Mcmullen, ID, consulted- help appreciated Imaging: CT Abd Pelvis with IV contrast (12/03/18): mendoza catheter within the urinary bladder. urinary bladder appears thick walled. mild associated inflammatory mccarty ges. findings appear consistent with cystitis. appendix appears minimally dilated measuring approximately 7mm in diameter. no significant periappendiceal inflammatory changes are evident. suspect sludge within the gallbladder. percutaneous gastrostomy tube. prostate radiation seeds. Mild bibasilar a telectasis. Trace effusions. ( see full report ) Anemia -Hemoglobin is 8.0 -Started on Ferrous sulfate 325mg PO daily -Anemia workup ordered -We will continue to monitor COPD -Albuterol 2 puff q6h ptn DMII (controlled) -Insulin sliding scale and accuchecks ACHS -hypoglycemia protocol -HgA1C 5.7 Hypothyroidism -Synthroid 75mcg po daily -TSH 14.60, will repeat today HTN -Metoprolol 25mg po BID -Hydralazine 50mg po TID Depression -Remeron 7.5mg po HS -Paxil 20mg po daily, 10mg PO HS -Risperdal 3mg po HS -Clonazepam 0.5mg PO HS -Psych consulted, Dr. Padgett, help appreciated Dementia -Aricept 10mg po HS HLD (controlled) -Crestor 10mg po HS Glaucoma -Alphagan .2% opht Constipation -Milk of Magnesia 30mg po daily prn -Colace 100mg po HS Prophylaxis SCDs Plan discussed with Dr. Satler
[2018-12-06] MEDS: Dextrose 5%/0.45% NS 1,000 ML IV SCH ×2 (13:00→23:15)
[2018-12-07] MEDS: Dextrose 5%/0.45% NS 1,000 ML IV SCH (02:30)
[2018-12-07] MEDS: Levothyroxine 75 MCG TAB PO SCH (05:47)
[2018-12-07 07:41] LABS: BASO % 0.3 % (0.0-2.0); EOS # 0.4 K/uL (0.0-0.7); HEMOGLOBIN 7.9 g/dL (12.0-18.0); LYMPH # 2.6 K/uL (1.0-4.3); LYMPH % 18.9 % (20.0-40.0); MEAN CELL VOLUME 93.8 fL (80.0-94.0); MEAN CORPUSCULAR HEMOGLOBIN 31.1 pg (27.0-31.0); MEAN CORPUSCULAR HGB CONC 33.2 g/dL (33.0-37.0); MEAN PLATELET VOLUME 10.3 fL (7.2-11.7); MONO # 1.2 K/uL (0.0-0.8); MONO % 8.6 % (0.0-10.0); NEUT # 9.5 K/uL (1.8-7.0); NEUT % 69.2 % (50.0-75.0); RBC 2.53 Mil/uL (4.40-5.90); RED CELL DISTRIBUTION WIDTH 14.5 % (11.5-14.5); WHITE BLOOD COUNT 13.7 K/uL (4.8-10.8)
[2018-12-07 07:46] LABS: ALB/GLOB RATIO 1.1 (1.0-2.1); ALBUMIN 3.2 g/dL (3.5-5.0); ALT/SGPT 26 U/L (21-72); AST/SGOT 34 U/L (17-59); BLOOD UREA NITROGEN 18 mg/dL (9-20); CALCIUM 8.6 mg/dl (8.6-10.4); GFR NON-AFRICAN AMERICAN > 60
[2018-12-07] MEDS: Brimonidine 0.2% Opth Sol (5ml) OS SCH (09:36)
[2018-12-07] MEDS: Multiple Vitamins Tab PO SCH (09:36)
[2018-12-07] MEDS: (Novolin R) Insulin Human Regular 100 units/ml vial SC SCH ×2 (09:47→13:44)
--- NOTE | 2018-12-07 10:13 | CP.PCM.PN ---
Subjective - Date & Time of Evaluation Date of Evaluation: 12/07/18 Time of Evaluation: 09:00 - Subjective Subjective: PGY2 Progress Note for Dr. Salter Patient seen and examined at bedside and in no acute distress. Patient is sleepy during interview. No acute events overnight as per nursing. Objective - Vital Signs/Intake and Output Vital Signs (last 24 hours): Temp Pulse Resp BP Pulse Ox 98.3 F 68 20 139/54 L 96 12/07/18 07:00 12/07/18 07:00 12/07/18 07:00 12/07/18 09:37 12/07/18 07:00 Intake and Output: 12/07/18 12/07/18 06:59 18:59 Intake Total 1510 Output Total 1250 Balance 260 - Medications Medications: Current Medications Al Hydrox/Mg Hydrox/Simethicone (Maalox Plus 30 Ml) 30 ml PO Q4 PRN PRN Reason: Nausea/Vomiting Albuterol (Ventolin Hfa 90 Mcg/Actuation (8 G)) 2 puff IH Q6 PRN PRN Reason: Wheezing Brimonidine Tartrate (Alphagan 0.2% Opht) 0 ml OS BID [facility] Last Admin: 12/07/18 09:36 Dose: 1 drop Clonazepam (Klonopin) 0.5 mg PO HS [facility] Last Admin: 12/06/18 22:14 Dose: Not Given Dextrose (Dextrose 50% Inj) 0 ml IV STAT PRN; Protocol PRN Reason: Hypoglycemia Protocol Dextrose (Glutose 15) 0 gm PO ONCE PRN; Protocol PRN Reason: Hypoglycemia Protocol Docusate Sodium (Colace) 100 mg PO HS [facility] Last Admin: 12/06/18 22:13 Dose: 100 mg Docusate Sodium (Colace Liquid) 100 mg PEG TID [facility] Last Admin: 12/07/18 09:36 Dose: 100 mg Donepezil HCl (Aricept) 10 mg PO HS [facility] Last Admin: 12/06/18 22:11 Dose: 10 mg Ferrous Sulfate (Feosol) 325 mg PO DAILY [facility] Last Admin: 12/07/18 09:36 Dose: 325 mg Glucagon (Glucagen Diagnostic Kit) 0 mg IM STAT PRN; Protocol PRN Reason: Hypoglycemia Protocol Hydralazine HCl (Apresoline) 50 mg PO TID [facility] Last Admin: 12/07/18 09:36 Dose: 50 mg Dextrose (Dextrose 5% In Water 1000 Ml) 1,000 mls @ 0 mls/hr IV .Q0M PRN; Protocol PRN Reason: Hypoglycemia Protocol Dextrose/Sodium Chloride (Dextrose 5%/0.45% Ns 1000 Ml) 1,000 mls @ 80 mls/hr IV .[id number] [facility] Last Admin: 12/07/18 02:30 Dose: 80 mls/hr Cefepime HCl 1 gm/ Dextrose 50 mls @ 100 mls/hr IVPB Q12H [facility]; Protocol Last Admin: 12/06/18 22:10 Dose: 100 mls/hr Insulin Human Regular (Novolin R) 0 unit SC ACHS [facility]; Protocol Last Admin: 12/07/18 09:47 Dose: Not Given Levothyroxine Sodium (Synthroid) 75 mcg PO 0630 [facility] Last Admin: 12/07/18 05:47 Dose: 75 mcg Magnesium Hydroxide (Milk Of Magnesia) 30 ml PO DAILY PRN PRN Reason: Constipation Metoprolol Tartrate (Lopressor) 25 mg PO BID [facility] Last Admin: 12/07/18 09:37 Dose: 25 mg Mirtazapine (Remeron) 7.5 mg PO [facility] Last Admin: 12/06/18 22:16 Dose: 7.5 mg Multivitamins (Hexavitamin) 1 tab PO DAILY [facility] Last Admin: 12/07/18 09:36 Dose: 1 tab Paroxetine HCl (Paxil) 20 mg PO DAILY [facility] Last Admin: 12/07/18 09:36 Dose: 20 mg Paroxetine HCl (Paxil) 10 mg PO [facility] Last Admin: 12/06/18 22:15 Dose: 10 mg Risperidone (Risperdal Tab) 3 mg PO HS [facility] Last Admin: 12/06/18 22:15 Dose: 3 mg Rosuvastatin Calcium (Crestor) 10 mg PO [facility] Last Admin: 12/06/18 22:13 Dose: 10 mg - Labs Labs: 12/07/18 07:15 12/07/18 07:15 PT 12.9 SECONDS (9.7-12.2) H 12/04/18 07:46 INR 1.2 12/04/18 07:46 APTT 31 SECONDS (21-34) 12/04/18 07:46 - Constitutional Appears: Non-toxic, No Acute Distress - Head Exam Head Exam: ATRAUMATIC, NORMAL INSPECTION, NORMOCEPHALIC - Eye Exam Eye Exam: EOMI, Normal appearance - ENT Exam ENT Exam: Mucous Membranes Moist - Respiratory Exam Respiratory Exam: Clear to Ausculation Bilateral, NORMAL BREATHING PATTERN - Cardiovascular Exam Cardiovascular Exam: REGULAR RHYTHM, RRR, +S1, +S2 - GI/Abdominal Exam GI & Abdominal Exam: Soft, Normal Bowel Sounds. absent: Tenderness - Exam Additional comments: mendoza bag with yellow urine - Extremities Exam Extremities Exam: Normal Inspection - Neurological Exam Neurological Exam: Alert, Awake. absent: Oriented x3 - Psychiatric Exam Psychiatric exam: Normal Affect - Skin Skin Exam: Intact, Normal Color, Warm Assessment and Plan - Assessment and Plan (Free Text) Assessment: Hematuria (improving) -Stable, afebrile -Patient is s/p cystoscopy and TURP POD#2 -Urology consulted, Dr. Shara Topete, help appreciated -Urine culture showing now growth -Antibiotics: d/c Cefepime 1gm q12h, patient to take Levaquin 500mg po daily for 7 days. -Dr. Mcmullen, ID, consulted- help appreciated Imaging: CT Abd Pelvis with IV contrast (12/03/18): mendoza catheter within the urinary bladder. urinary bladder appears thick walled. mild associated inflammatory changes. findings appear consistent with cystitis. appendix appears minimally dilated measuring approximately 7mm in diameter. no significant periappendiceal inflammatory changes are evident. suspect sludge within the gallbladder. percutaneous gastrostomy tube. prostate radiation seeds. Mild bibasilar atelectasis. Trace effusions. ( see full report ) Anemia -Hemoglobin is 7.9 -Started on Ferrous sulfate 325mg PO daily -We will continue to monitor COPD -Albuterol 2 puff q6h ptn DMII (controlled) -Insulin sliding scale and accuchecks ACHS -hypoglycemia protocol -HgA1C 5.7 Hypothyroidism -Synthroid increased to 88mcg from 75 mcg -TSH 17.30 HTN -Metoprolol 25mg po BID -Hydralazine 50mg po TID Depression -Remeron 7.5mg po HS -Paxil 20mg po daily, 10mg PO HS -Risperdal .75mg po HS -Clonazepam 0.5mg PO HS -Psych consulted, Dr. Padgett, help appreciated Dementia -Aricept 10mg po HS HLD (controlled) -Crestor 10mg po HS Glaucoma -Alphagan .2% opht Constipation -Milk of Magnesia 30mg po daily prn -Colace 100mg po HS Prophylaxis SCDs Plan discussed with Dr. Salter Dispo: Patient stable for discharge to [facility]. Patient to keep mendoza catheter. Patient to take Levaquin 500mg po daily for 7 days. [facility] should call Dr. Topete for instructions on taking out mendoza on 12/11/18.
[2018-12-07] MEDS ORDERED: Levothyroxine 88 MCG TAB PO SCH (11:45)
--- NOTE | 2018-12-07 12:54 | PCM.PSYCH ---
Initial Psychiatric Evaluation - Initial Psychiatric Evaluation Type of Admission: Voluntary Legal Status: Capacity Chief Complaint (in patient's own words): I am feeling okay History of Present Illness and Precipitating Events: Patient is a 78 year old male with PMHx of Arthritis, Hypothyroidism, Dementia, HTN, DM, depression/Anxiety, schizophrenia, former alcohol abuse and prostate cancer, indwelling mendoza catheter, and who presents today from [facility] for multiple days of hematuria. Patient was admitted on the medical unit and TURP procedure was performed. As per staff, patient became confused after the procedure. Psychiatry was consulted. As per staff, 2 days ago patient will became irritable, confused and agitated. He was delusional and paranoid. He was pulling out IV line and he was restless. However today patient appears much better. He is alert awake and oriented to time place and person. He reports of seeing things and paranoia however he denies any denies any auditory hallucinations. He reports anxiety but denies any feelings of hopelessness or helplessness. He denies any suicidal ideation or any homicidal ideation. Current Medications: Active Medications Generic Name Dose Route Start Last Admin Trade Name Freq PRN Reason Stop Dose Admin Al Hydrox/Mg Hydrox/Simethicone 30 ml 12/03/18 14:47 Maalox Plus 30 Ml PO Q4 PRN Nausea/Vomiting Albuterol 2 puff 12/03/18 14:47 Ventolin Hfa 90 Mcg/Actuation (8 G) IH Q6 PRN Wheezing Brimonidine Tartrate 0 ml 12/03/18 18:00 12/07/18 09:36 Alphagan 0.2% Opht OS 1 drop BID DEX Administration Clonazepam 0.5 mg 12/05/18 22:00 12/06/18 22:14 Klonopin PO Not Given HS DEX Dextrose 0 ml 12/03/18 15:25 Dextrose 50% Inj IV STAT PRN Hypoglycemia Protocol Protocol Dextrose 0 gm 12/03/18 15:25 Glutose 15 PO ONCE PRN Hypoglycemia Protocol Protocol Docusate Sodium 100 mg 12/03/18 22:00 12/06/18 22:13 Colace PO 100 mg HS DEX Administration Docusate Sodium 100 mg 12/04/18 14:00 12/07/18 09:36 Colace Liquid PEG 100 mg TID DEX Administration Donepezil HCl 10 mg 12/03/18 22:00 12/06/18 22:11 Aricept PO 10 mg HS DEX Administration Ferrous Sulfate 325 mg 12/05/18 10:00 12/07/18 09:36 Feosol PO 325 mg DAILY DEX Administration Glucagon 0 mg 12/03/18 15:25 Glucagen Diagnostic Kit IM STAT PRN Hypoglycemia Protocol Protocol Hydralazine HCl 50 mg 12/03/18 18:00 12/07/18 09:36 Apresoline PO 50 mg TID DEX Administration Dextrose 1,000 mls @ 0 mls/hr 12/03/18 15:25 Dextrose 5% In Water 1000 Ml IV .Q0M PRN Hypoglycemia Protocol Protocol Per Protocol Dextrose/Sodium Chloride 1,000 mls @ 80 mls/hr 12/03/18 20:15 12/07/18 02:30 Dextrose 5%/0.45% Ns 1000 Ml IV 80 mls/hr .[id number] DEX Administration Cefepime HCl 1 gm/ Dextrose 50 mls @ 100 mls/hr 12/07/18 10:30 12/07/18 11:06 IVPB 100 mls/hr Q12H DEX Administration Protocol Insulin Human Regular 0 unit 12/04/18 16:30 12/07/18 09:47 Novolin R SC Not Given ACHS DEX Protocol Levothyroxine Sodium 88 mcg 12/07/18 11:45 Synthroid PO 0630 DEX Magnesium Hydroxide 30 ml 12/03/18 14:47 Milk Of Magnesia PO DAILY PRN Constipation Metoprolol Tartrate 25 mg 12/03/18 18:00 12/07/18 09:37 Lopressor PO 25 mg BID DEX Administration Mirtazapine 7.5 mg 12/03/18 22:00 12/06/18 22:16 Remeron PO 7.5 mg HS DEX Administration Multivitamins 1 tab 12/05/18 10:00 12/07/18 09:36 Hexavitamin PO 1 tab DAILY DEX Administration Paroxetine HCl 20 mg 12/04/18 10:00 12/07/18 09:36 Paxil PO 20 mg DAILY DEX Administration Paroxetine HCl 10 mg 12/05/18 22:00 12/06/18 22:15 Paxil PO 10 mg HS DEX Administration Risperidone 3 mg 12/03/18 22:00 12/06/18 22:15 Risperdal Tab PO 3 mg HS DEX Administration Rosuvastatin Calcium 10 mg 12/03/18 22:00 12/06/18 22:13 Crestor PO 10 mg HS DEX Administration Past Psychiatric History - Past Psychiatric History Previous Treatment History: None Pertinent Medical Hx (Current Medical&Sleep Prob, Allergies): Allergies Allergy/AdvReac Type Severity Reaction Status Date / Time No Known Allergies Allergy Unverified 06/26/18 08:13 Donepezil [Aricept] 10 mg PO HS tab 04/12/18 Metoprolol Tartrate [Lopressor] 25 mg PO BID tab 04/12/18 Mirtazapine [Remeron] 7.5 mg PO HS tab 04/12/18 PARoxetine [Paxil] 20 mg PO DAILY tab 04/12/18 Rosuvastatin Calcium [Crestor] 10 mg PO HS tab 04/12/18 Albuterol Sulfate [Ventolin Hfa] 2 puff IH Q6 PRN 06/18/18 Brimonidine 0.2% [Alphagan 0.2% Opht] 1 drop OS BID 06/18/18 Multivitamin [Multivitamins] 1 each PO DAILY 06/18/18 Acetaminophen [Tylenol] 650 mg PO Q4 PRN MDD 3 GM 12/03/18 Aluminum Hydroxide/Magnesium [Maalox Plus 30 ml] 30 ml PO Q4 PRN 12/03/18 Dextran 70/Hypromellose [Artificials Tears Drops] 1 drop OS BID 12/03/18 Docusate [Colace] 100 mg PO HS 12/03/18 Insulin Lispro-LOW [humALOG LOW] 1 units SC ACHS 12/03/18 Magnesium Hydroxide [Milk Of Magnesia] 30 ml PO DAILY PRN 12/03/18 Risperidone [Risperdal] 3 tab PO HS 12/03/18 hydrALAZINE [Apresoline] 50 mg PO TID 12/03/18 Ferrous Sulfate [Feosol] 325 mg PO DAILY tab 12/07/18 Levofloxacin [Levaquin] 500 mg PO DAILY #7 tablet 12/07/18 Levothyroxine [Synthroid] 88 mcg PO 0630 tab 12/07/18 Multivitamins [Hexavitamin] 1 tab PO DAILY tab 12/07/18 PARoxetine [Paxil] 10 mg PO HS tab 12/07/18 clonazePAM [Klonopin] 0.5 mg PO HS tab 12/07/18 Review of Systems - Review of Systems All systems: reviewed and no additional remarkable complaints except - Psychiatric Psychiatric: Anxiety, Auditory Hallucinations, Irritability. absent: Suicidal Ideation Mental Status Examination - Personal Presentation Personal Presentation: Looks stated age - Affect Affect: Constricted - Motor Activity Motor Activity: Calm - Reliability in Providing Information Reliability in Providing Information: Fair - Speech Speech: Organized - Mood Mood: Anxious - Formal Thought Process Formal Thought Process: Hallucinations - Hallucinations/Delusions Hallucinations: Auditory - Obsessions/Compulsions Obsessions: No Compulsions: No - Cognitive Functions Orientation: Person, Place, Situation, Time Sensorium: Alert Attention/Concentration: Attentive Abstract Thinking: [place] Estimate of Intelligence: Below average Judgement: Imparied, as evidence by: Poor judgement, Imparied, as evidence by: Lack of insight into illness - Risk Risk: Diminished functioning - Limitations Limitations: Living alone DSM 5 DX - DSM 5 DSM 5 Diagnosis: Schizophrenia paranoid type continues - Recommended/Plan of Treatment Treatment Recommendations and Plan of Treatment: Schizophrenia paranoid type continues Rule out schizoaffective disorder bipolar type Continue home meds Patient is psychiatrically stable and cleared for discharge to the [facility]
[2018-12-07 15:31] VITALS: BP 113/54; PULSE 74; TEMP 98.4; O2SAT 99
== END 2018-12-07 17:45 | DRG 713 ==
LOC: C.ER 08:44 → C.9E 13:42 → C.6T 14:50 → C.3T 15:14 → OBSVTOIN 12-06 15:12
PROVIDERS: ADMIT Internal Medicine; ATTEND Internal Medicine Pulmonary Disease
PROC: 0VB08ZZ Excision of Prostate, Via Natural or Artificial Opening Endoscopic (ICD-10-PCS; 2018-12-04)
PROC: 0T7D8ZZ Dilation of Urethra, Via Natural or Artificial Opening Endoscopic (ICD-10-PCS; 2018-12-04)
PROC: 0TCB8ZZ Extirpation of Matter from Bladder, Via Natural or Artificial Opening Endoscopic (ICD-10-PCS; principal; 2018-12-04 09:00)
DX: C61 Malignant neoplasm of prostate (principal); J98.11 Atelectasis; E11.9 Type 2 diabetes mellitus without complications; E78.5 Hyperlipidemia, unspecified; F03.90 Unspecified dementia, unspecified severity, without behavioral disturbance, psychotic disturbance, mood disturbance, and anxiety; F32.9 Major depressive disorder, single episode, unspecified; I10 Essential (primary) hypertension; J44.9 Chronic obstructive pulmonary disease, unspecified; N30.91 Cystitis, unspecified with hematuria; Z74.01 Bed confinement status; Z92.3 Personal history of irradiation; N32.89 Other specified disorders of bladder